=== PATIENT | female | born 1930 | race Caucasian/White ===

== ENCOUNTER 2017-06-01 09:30 | Inpatient (IN) | payer MEDICARE ==
[~2017-06-01] VITALS: Ht 157.5 cm; Wt 58.5 kg
[2017-06-01 09:31] VITALS: BP 159/78; PULSE 81; RESP 18; TEMP 98.5; O2SAT 98
[2017-06-01] MEDS ORDERED: ONDANSETRON HCL 4 MG/2 ML VIAL IVP ONE (10:00)
[2017-06-01] MEDS ORDERED: SODIUM CHLOR 0.9% 1000 ML INJ 1,000 ML IV SCH ×2 (10:00→12:00)
[2017-06-01] MEDS: SODIUM CHLORIDE 0.9% FLUSH 10 ML FLUSH IV FLUSH PRN (10:09)
[2017-06-01 10:33] LABS: AUTOMATED NEUTROPHIL # 15.5 TH/MM3 (1.8-7.7); BASOPHIL # 0.1 TH/MM3 (0-0.2); BASOPHIL % 0.3 % (0.0-2.0); HEMATOCRIT 39.3 % (35.0-46.0); HEMOGLOBIN 13.1 GM/DL (11.6-15.3); LYMPH % 4.8 % (9.0-44.0); LYMPHOCYTE # 0.8 TH/MM3 (1.0-4.8); MEAN CORPUSCULAR HGB CONC 33.4 % (32.0-36.0); MEAN PLATELET VOLUME 9.6 FL (7.0-11.0); MONO % 6.7 % (0.0-8.0); MONOCYTE # 1.2 TH/MM3 (0-0.9); NEUT % 88.2 % (16.0-70.0); PLATELET COUNT 751 TH/MM3 (150-450); RED BLOOD COUNT 4.51 MIL/MM3 (4.00-5.30); RED CELL DISTRIBUTION WIDTH 14.8 % (11.6-17.2); WHITE BLOOD COUNT 17.6 TH/MM3 (4.0-11.0)
--- NOTE | 2017-06-01 10:33 | RADRPT ---
EXAM DATE/TIME: 06/01/2017 10:20 [facility] COMPARISON: No previous studies available for comparison. INDICATIONS : Abdominal pain, vomiting ORAL CONTRAST: No oral contrast ingested. RADIATION DOSE: 6.64 CTDIvol (mGy) MEDICAL HISTORY : None SURGICAL HISTORY : Appendectomy. Hysterectomy. ENCOUNTER: Initial ACUITY: 4 - 6 days PAIN SCALE: 5/10 LOCATION: Bilateral upper quadrant TECHNIQUE: Volumetric scanning of the abdomen and pelvis was performed. Using automated exposure control and ad justment of the mA and/or kV according to patient size, radiation dose was kept as low as reasonably achievable to obtain optimal diagnostic quality images. DICOM format image data is available electro nically for review and comparison. FINDINGS: LOWER LUNGS: The visualized lower lungs are clear. LIVER: Homogeneous density without lesion. There is no dilation of the biliary tree. No calcified gallston es. SPLEEN: Normal size without lesion. PANCREAS: Within normal limits. KIDNEYS: Normal in size and shape. There is no mass, stone, or hydronephrosis. ADRENAL GLANDS: Within normal limits. VASCULAR: There is no aortic aneurysm. BOWEL/MESENTERY: The stomach and small bowel are prominently dilated down to a transition point in the low left parame sofy pelvis. The small bowel distal to this is decompressed. The colon is decompressed. There is mode rate distal colonic diverticulosis without definite findings of diverticulitis. ABDOMINAL WALL: Within normal limits. RETROPERITONEUM: There is no lymphadenopathy. BLADDER: No wall thickening or mass. REPRODUCTIVE: Uterus surgically absent. No evidence of pelvic mass or free fluid INGUINAL: There is no lymphadenopathy or hernia. MUSCULOSKELETAL: Within normal limits for patient age. CONCLUSION: Mid small bowel obstruction. Carlos Batista MD on June 01, 2017 at 10:26 Board Certified Radiologist. This report was verified electronically.
[2017-06-01] MEDS ORDERED: SODIUM CHLOR 0.9% 1000 ML INJ 1,000 ML IV ONE (10:45)
[2017-06-01 10:46] LABS: ALBUMIN 3.6 GM/DL (3.4-5.0); ALT (GPT) 23 U/L (10-53); AST (GOT) 24 U/L (15-37); BICARBONATE 32.4 MEQ/L (21.0-32.0); BLOOD UREA NITROGEN 39 MG/DL (7-18); CALCIUM 9.1 MG/DL (8.5-10.1); CHLORIDE 90 MEQ/L (98-107); CREATININE 1.49 MG/DL (0.50-1.00); GLOMERULAR FILTRATION RATE 33 ML/MIN (>89); GLUCOSE,RANDOM 175 MG/DL (74-106); SODIUM (NA) 132 MEQ/L (136-145)
[2017-06-01 10:48] LABS: ALKALINE PHOSPHATASE 83 U/L (45-117); TOTAL BILIRUBIN ADULT 0.5 MG/DL (0.2-1.0); TOTAL PROTEIN 7.4 GM/DL (6.4-8.2)
[2017-06-01] MEDS: LIDOCAINE 2% JELLY 5 ML TUBE ONE ×2 (10:48→11:02)
[2017-06-01] MEDS ORDERED: POTASSIUM CHLOR 10 MEQ PREMIX 100 ML IV ONE (11:00)
[2017-06-01] MEDS ORDERED: LIDOCAINE HCL 2% JELLY 5 ML SYRINGE TOPICAL ONE (11:00)
--- NOTE | 2017-06-01 11:09 | PD ---
HPI Chief Complaint: Abdominal Pain Time Seen by Provider: 10:01 Travel History International Travel<30 days: No Contact w/Intl Traveler<30days: No Traveled to known affect area: No History of Present Illness HPI 87-year-old female came to the emergency room with history of vomiting and abdominal pain that started 3 days ago. Patient has not had any bowel movement for over 24 hours. She has not passed any gas. The vomiting is pretty much continuous. She went to the urgent care today and was asked to come to the emergency room with suspicion of small bowel obstruction. No previous history of small bowel obstruction. Vital signs are relatively stable. Patient appears to be in moderate distress. Pain is all over the abdomen. [facility] Past Medical History Narrative Medical List of her past medical, surgical, social and family history reviewed from the nursing note. Medical History: Denies Significant Hx Hx Anticoagulant Therapy: Yes (asa) Diminished Hearing: No Tetanus Vaccination: Never Vaccinated Influenza Vaccination: No ?: Not Past Surgical History Appendectomy: Yes Hysterectomy: Yes Social History Alcohol Use: No Tobacco Use: No Substance Use: No Allergies-Medications (Allergen,Severity, Reaction): Coded Allergies: penicillin V (Verified Allergy, Unknown, 06/01/17) Comments List of her allergies reviewed from the nursing note. Reported Meds & Prescriptions Reported Meds & Active Scripts Active No Active Prescriptions or Reported Medications Narrative Medication List of her home medications reviewed from the nursing note Review of Systems Except as stated in HPI: all other systems reviewed are Neg Gastrointestinal: Positive: Nausea, Vomiting, Abdominal Pain Physical Exam Narrative GENERAL: Awake, alert, elderly, anxious, moderate distress SKIN: Focused skin assessment warm/dry. HEAD: Atraumatic. Normocephalic. EYES: Pupils equal and round. No scleral icterus. No injection or drainage. ENT: No nasal bleeding or discharge. Mucous membranes pink and moist. NECK: Trachea midline. No JVD. CARDIOVASCULAR: Regular rate and rhythm. No murmur appreciated. RESPIRATORY: No accessory muscle use. Clear to auscultation. Breath sounds equal bilaterally. GASTROINTESTINAL: Abdomen is tense and distended with tinkling bowel sounds. Hepatic and splenic margins not palpable. MUSCULOSKELETAL: No obvious deformities. No clubbing. No cyanosis. No edema. NEUROLOGICAL: Awake and alert. No obvious cranial nerve deficits. Motor grossly within normal limits. Normal speech. PSYCHIATRIC: Appropriate mood and affect; insight and judgment normal. Data Data Last Documented VS Orders Orders Electrocardiogram (06/01/17 ) Complete Blood Count With Diff (06/01/17 10:00) Comprehensive Metabolic Panel (06/01/17 10:00) Lipase (06/01/17 10:00) Ct Abd/Pel W/O Iv Contrast (06/01/17 10:00) Iv Access Insert/Monitor (06/01/17 10:00) Ecg Monitoring (06/01/17 10:00) Oximetry (06/01/17 10:00) Ondansetron Inj (Zofran Inj) (06/01/17 10:00) Sodium Chlor 0.9% 1000 Ml Inj (Ns 1000 M (06/01/17 10:00) Sodium Chloride 0.9% Flush (Ns Flush) (06/01/17 10:00) Sodium Chlor 0.9% 1000 Ml Inj (Ns 1000 M (06/01/17 10:45) Lidocaine 2% Jelly (Xylocaine 2% Jelly) (06/01/17 11:00) Lidocaine 2% Jelly (Xylocaine 2% Jelly) (06/01/17 10:48) Potassium Chlor 10 Meq Premix (Kcl 10 Me (06/01/17 11:00) Admit Order (Ed Use Only) (06/01/17 11:11) Labs Laboratory Tests Test 06/01/17 09:50 White Blood Count 17.6 TH/MM3 Red Blood Count 4.51 MIL/MM3 Hemoglobin 13.1 GM/DL Hematocrit 39.3 % Mean Corpuscular Volume 87.0 FL Mean Corpuscular Hemoglobin 29.0 PG Mean Corpuscular Hemoglobin Concent 33.4 % Red Cell Distribution Width 14.8 % Platelet Count 751 TH/MM3 Mean Platelet Volume 9.6 FL Neutrophils (%) (Auto) 88.2 % Lymphocytes (%) (Auto) 4.8 % Monocytes (%) (Auto) 6.7 % Eosinophils (%) (Auto) 0.0 % Basophils (%) (Auto) 0.3 % Neutrophils # (Auto) 15.5 TH/MM3 Lymphocytes # (Auto) 0.8 TH/MM3 Monocytes # (Auto) 1.2 TH/MM3 Eosinophils # (Auto) 0.0 TH/MM3 Basophils # (Auto) 0.1 TH/MM3 CBC Comment DIFF FINAL Differential Comment Blood Urea Nitrogen 39 MG/DL Creatinine 1.49 MG/DL Random Glucose 175 MG/DL Total Protein 7.4 GM/DL Albumin 3.6 GM/DL Calcium Level 9.1 MG/DL Alkaline Phosphatase 83 U/L Aspartate Amino Transf (AST/SGOT) 24 U/L Alanine Aminotransferase (ALT/SGPT) 23 U/L Total Bilirubin 0.5 MG/DL Sodium Level 132 MEQ/L Potassium Level 3.0 MEQ/L Chloride Level 90 MEQ/L Carbon Dioxide Level 32.4 MEQ/L Anion Gap 10 MEQ/L Estimat Glomerular Filtration Rate 33 ML/MIN Lipase 172 U/L MDM Medical Decision Making Medical Screen Exam Complete: Yes Emergency Medical Condition: Yes Medical Record Reviewed: Yes Interpretation(s) Twelve-lead EKG was reviewed by me. Normal sinus rhythm, left axis deviation, intraventricular conduction delay, nonspecific ST-T wave changes. Heart rate of 77 bpm. Differential Diagnosis Small bowel obstruction, acute gastroenteritis Narrative Course 11:08 AM blood test results are back and patient has significant leukocytosis. BUN/creatinine is elevated. I have given her 2 L of IV fluid bolus and Zofran. CT scan shows small bowel obstruction. I have ordered an NG tube at this point. Awaiting for the admitting team to call. Procedures EKG Prior to Arrival: No Diagnosis Primary Impression: Small bowel obstruction Admitting Information Admitting Physician Requests: Admit Scripts No Active Prescriptions or Reported Meds Jessica Centeno MD Jun 01, 2017 11:09
[2017-06-01 11:27] VITALS: BP 165/70; PULSE 82; RESP 15; RESP 16; O2SAT 99
--- NOTE | 2017-06-01 12:34 | RADRPT ---
EXAM DATE/TIME: 06/01/2017 12:03 [facility] COMPARISON: No previous studies available for comparison. INDICATIONS : Evaluate NG tube placement. MEDICAL HISTORY : None. SURGICAL HISTORY : None. ENCOUNTER: Initial ACUITY: 1 day PAIN SCORE: 0/10 LOCATION: Abdomen FINDINGS: Single frontal view of the mid chest and upper abdomen demonstrates the tip and side port of the seferino raffy tube projects within the stomach. The visualized lower lungs are clear. Moderate severe degenerat mery changes in the thoracic and lumbar spine with endplate sclerosis. No dilated loops of upper abdom inal bowel. CONCLUSION: The gastric tube tip and side port within the stomach. Trey Chapman MD on June 01, 2017 at 12:31 Board Certified Radiologist. This report was verified electronically.
[2017-06-01] MEDS: MORPHINE SULFATE 2 MG/ML INJ IV PUSH PRN (12:55)
[2017-06-01] MEDS: ONDANSETRON HCL 4 MG/2 ML VIAL IV PUSH PRN (12:56)
[2017-06-01] MEDS ORDERED: NS + KCL 20 MEQ INJ 1,000 ML IV SCH (13:45)
--- NOTE | 2017-06-01 13:49 | HHI.HP ---
[facility] Service [facility] Primary Care Physician Unknown Admission Diagnosis Small bowel obstruction Diagnoses: (1) Small bowel obstruction Diagnosis: Principal Chief Complaint: abdominal pain Travel History International Travel<30 Days: No Contact w/Intl Traveler <30 Da: No Traveled to Known Affected Are: No History of Present Illness patient is a 87 y/o female with no significant past medical history presented to ER with abdominal pain. she says that the pain started three days ago which gradually got worse. pain was generalized and colicky in nature.pain was associated with nausea and several non-bloody emesis. she hasn't had any bowel movements since Wednesday.she denies any fever or chills. Review of Systems Constitutional: DENIES: Fever, Weight loss, Chills, Night Sweats Eyes: DENIES: Blurred vision, Diplopia, Vision loss, Double Vision Ears, nose, mouth, throat: DENIES: Tinnitus, Vertigo, Throat pain, Epistaxis Respiratory: DENIES: Apneas, Cough, Snoring, Wheezing, Hemoptysis, Sputum production, Shortness of breath Cardiovascular: DENIES: Chest pain, Palpitations, Syncope, Dyspnea on Exertion , PND, Lower Extremity Edema, Orthopnea, Claudication Gastrointestinal: COMPLAINS OF: Abdominal pain, Constipation, Nausea, Vomiting , DENIES: Black stools, Bloody stools, Diarrhea, Difficulty Swallowing, Anorexia Genitourinary: DENIES: Urinary frequency, Urgency, Hematuria, Dysuria Musculoskeletal: DENIES: Joint pain, Muscle aches, Stiffness, Joint Swelling Integumentary: DENIES: Rash Neurologic: DENIES: Abnormal gait, Headache, Localized weakness, Paresthesias, Seizures, Speech Problems, Tremor, Poor Balance Psychiatric: DENIES: Anxiety, Confusion, Mood changes, Depression, Hallucinations, Agitation, Suicidal Ideation, Homicidal Ideation, Delusions Past Family Social History Past Medical History not significant. Past Surgical History appendectomy- hysterectomy. Reported Medications none Allergies: Coded Allergies: penicillin V (Verified Allergy, Unknown, 06/01/17) Active Ordered Medications Inpatient Medications Lidocaine HCl (Xylocaine 2% Jelly) 5 ml ONCE ONCE TOPICAL Last administered on 06/01/17 11:03; Start 06/01/17 at 11:00; Stop 06/01/17 at 11:01; Status DC Morphine Sulfate (Morphine Inj) 2 mg Q4H PRN IV PUSH PAIN Last administered on 06/01/17 12:55; Start 06/01/17 at 11:45 Ondansetron HCl (Zofran Inj) 4 mg Q8H PRN IV PUSH NAUSEA Last administered on 12:56; Start 06/01/17 at 11:45 Potassium Chloride 100 ml @ 100 mls/hr ONCE ONCE IV Last administered on 11:01; Start 06/01/17 at 11:00; Stop 06/01/17 at 11:59; Status DC Sodium Chloride 1,000 ml @ 75 mls/hr [id number] IV Last administered on 06/01/17 12:57; Start 06/01/17 at 12:00 Sodium Chloride (NS Flush) 2 ml UNSCH PRN IV FLUSH FLUSH AFTER USING IV ACCESS Last administered on 06/01/17at 10:09; Start 06/01/17 at 10:00 Family History breast cancer in daughter. Social History no smoking or drinking. Physical Exam Vital Signs Vital Signs Date Time Temp Pulse Resp B/P (MAP) Pulse Ox O2 Delivery O2 Flow Rate FiO2 06/01/17 11:27 82 16 165/70 (101) 99 Nasal Cannula 2.00 06/01/17 11:27 82 15 165/70 (101) 99 Nasal Cannula 2.00 06/01/17 09:50 16 06/01/17 09:31 98.5 81 18 159/78 (105) 98 Room Air Physical Exam GENERAL: This is a well-nourished, well-developed patient, in no apparent distress. SKIN: No rashes, ecchymoses or lesions. Cool and dry. HEAD: Atraumatic. Normocephalic. No temporal or scalp tenderness. EYES: Pupils equal round and reactive. Extraocular motions intact. No scleral icterus. No injection or drainage. ENT: Nose without bleeding, purulent drainage or septal hematoma. Throat without erythema, tonsillar hypertrophy or exudate. Uvula midline. Airway patent. NECK: Trachea midline. No JVD or lymphadenopathy. Supple, nontender, no meningeal signs. CARDIOVASCULAR: Regular rate and rhythm without murmurs, gallops, or rubs. RESPIRATORY: Clear to auscultation. Breath sounds equal bilaterally. No wheezes , rales, or rhonchi. GASTROINTESTINAL: Abdomen soft, non-tender, nondistended. No hepato-splenomegaly , or palpable masses. No guarding. MUSCULOSKELETAL: Extremities without clubbing, cyanosis, or edema. No joint tenderness, effusion, or edema noted. No calf tenderness. Negative Homans sign bilaterally. NEUROLOGICAL: Awake and alert. Cranial nerves II through XII intact. Motor and sensory grossly within normal limits. Five out of 5 muscle strength in all muscle groups. Normal speech. Laboratory Laboratory Tests Test 06/01/17 09:50 White Blood Count 17.6 Red Blood Count 4.51 Hemoglobin 13.1 Hematocrit 39.3 Mean Corpuscular Volume 87.0 Mean Corpuscular Hemoglobin 29.0 Mean Corpuscular Hemoglobin Concent 33.4 Red Cell Distribution Width 14.8 Platelet Count 751 Mean Platelet Volume 9.6 Neutrophils (%) (Auto) 88.2 Lymphocytes (%) (Auto) 4.8 Monocytes (%) (Auto) 6.7 Eosinophils (%) (Auto) 0.0 Basophils (%) (Auto) 0.3 Neutrophils # (Auto) 15.5 Lymphocytes # (Auto) 0.8 Monocytes # (Auto) 1.2 Eosinophils # (Auto) 0.0 Basophils # (Auto) 0.1 CBC Comment DIFF FINAL Differential Comment Blood Urea Nitrogen 39 Creatinine 1.49 Random Glucose 175 Total Protein 7.4 Albumin 3.6 Calcium Level 9.1 Alkaline Phosphatase 83 Aspartate Amino Transf (AST/SGOT) 24 Alanine Aminotransferase (ALT/SGPT) 23 Total Bilirubin 0.5 Sodium Level 132 Potassium Level 3.0 Chloride Level 90 Carbon Dioxide Level 32.4 Anion Gap 10 Estimat Glomerular Filtration Rate 33 Lipase 172 Result Diagram: 06/01/17 0950 06/01/17 0950 Imaging Last Impressions Abdomen/Pelvis CT 06/01/17 1000 Signed Impressions: Service Date/Time: Thursday, June 01, 2017 10:20 - CONCLUSION: Mid small bowel obstruction. Carlos Batista MD Abdomen X-Ray 06/01/17 0000 Signed Impressions: Service Date/Time: Thursday, June 01, 2017 12:03 - CONCLUSION: The gastric tube tip and side port within the stomach. MD Roberto Loo VTE Risk Assessment Caprini VTE Risk Assessment: Mod/High Risk (score >= 2) Caprini Risk Assessment Model Point Value = 1 Point Value = 2 Point Value = 3 Point Value = 5 Age 41-60 Minor surgery BMI > 25 kg/m2 Swollen legs Varicose veins or History of unexplained or recurrent spontaneous Oral contraceptives or hormone replacement Sepsis (< 1 month) Serious lung disease, including pneumonia (< 1 month) Abnormal pulmonary function Acute myocardial infarction Congestive heart failure (< 1 month) History of inflammatory bowel disease Medical patient at bed rest Age 61-74 Arthroscopic surgery Major open surgery (> 45 min) Laparoscopic surgery (> 45 min) Malignancy Confined to bed (> 72 hours) Immobilizing plaster cast Central venous access Age >= 75 History of VTE Family history of VTE Factor V Leiden Prothrombin [id number] Lupus anticoagulant Anticardiolipin antibodies Elevated serum homocysteine Heparin-induced thrombocytopenia Other congenital or acquired thrombophilia Stroke (< 1 month) Elective arthroplasty Hip, pelvis, or leg fracture Acute spinal cord injury (< 1 month) Prophylaxis Regimen Total Risk Factor Score Risk Level Prophylaxis Regimen 0-1 Low Early ambulation 2 Moderate Order ONE of the following: *Sequential Compression Device (SCD) *Heparin 5000 units SQ BID 3-4 Higher Order ONE of the following medications: *Heparin 5000 units SQ TID *Enoxaparin/Lovenox 40 mg SQ daily (WT < 150 kg, CrCl > 30 mL/min) *Enoxaparin/Lovenox 30 mg SQ daily (WT < 150 kg, CrCl > 10-29 mL/min) *Enoxaparin/Lovenox 30 mg SQ BID (WT < 150 kg, CrCl > 30 mL/min) AND/OR *Sequential Compression Device (SCD) 5 or more Highest Order ONE of the following medications: *Heparin 5000 units SQ TID (Preferred with Epidurals) *Enoxaparin/Lovenox 40 mg SQ daily (WT < 150 kg, CrCl > 30 mL/min) *Enoxaparin/Lovenox 30 mg SQ daily (WT < 150 kg, CrCl > 10-29 mL/min) *Enoxaparin/Lovenox 30 mg SQ BID (WT < 150 kg, CrCl > 30 mL/min) AND *Sequential Compression Device (SCD) Assessment and Plan Assessment and Plan A/P - small bowel obstruction keep NPO-NG tube in place- start on IV fluid and supportive care with pain management and antiemetics as needed. will repeat KUB tomorrow- surgery will be consulted. -renal insufficiency with unknown duration- continue IV fluid- will monitor. -leukocytosis/thrombocytosis- likely reactive- will monitor -hypokalemia; will replace and monitor. -DVT prophylaxis with SCD's -DNR status per my d/w the patient and her son. -consult PT Code Status DNR. Discussed Condition With ER physician and the patient and her son. Physician Certification 2 Midnight Certification Type: Admission for Inpatient Services Order for Inpatient Services The services are ordered in accordance with Medicare regulations or non- Medicare payer requirements, as applicable. In the case of services not specified as inpatient-only, they are appropriately provided as inpatient services in accordance with the 2-midnight benchmark. Estimated LOS (days): 2 days is the estimated time the patient will need to remain in the hospital, assuming treatment plan goals are met and no additional complications. Post-Hospital Plan: Not yet determined Suman Gooden MD Jun 01, 2017 13:48
--- NOTE | 2017-06-01 14:33 | EKG ---
Date Performed: 06/01/2017 Time Performed: 09:51:09 PTAGE: 87 years EKG: Sinus rhythm MODERATE INTRAVENTRICULAR CONDUCTION DELAY NONSPECIFIC T-WAVE ABNORMALITY BORDERLINE ECG INTERPRETAT ION BASED ON A DEFAULT AGE OF 40 YEARS NO PREVIOUS TRACING DOCTOR: Letha Wheatley Interpretating Date/Time 06/01/2017 14:30:02
--- NOTE | 2017-06-01 15:21 | PD.CONS ---
cc: Navarro Arellano MD [facility] Service CONSULTATION NOTE FOR SURGICAL ATTENDING, DR. NAVARRO ARELLANO General Surgery Consult Requested By Dr. Gooden Reason for Consult Small bowel obstruction Primary Care Physician Unknown History of Present Illness This is an 87-year-old female with no significant past medical history who comes to the Emergency Department with complaints of nausea, vomiting and abdominal pain that began on Wednesday. The patient reports no sick contacts. The patient reports that she has traveled from [facility] via car with her son. She is here on vacation visiting her son. A CT abdomen and pelvis obtained which is a mid small bowel obstruction. An NG tube was placed to low intermittent wall suction with resolution of nausea and vomiting and relief of some abdominal pain. The patient does not have any prior history of any type episode like this before. She does have a surgical history of an open appendectomy as a teenager and a total abdominal hysterectomy. The patient reports that she is never had an EGD or colonoscopy. A General Surgery consultation has been requested. Review of Systems Constitutional: COMPLAINS OF: Change in appetite, DENIES: Fatigue, Fever, Weight loss Endocrine: DENIES: Polydipsia, Polyuria, Polyphagia Eyes: DENIES: Eye inflammation, Eye pain Ears, nose, mouth, throat: DENIES: Hearing loss Respiratory: DENIES: Cough Cardiovascular: DENIES: Chest pain Gastrointestinal: COMPLAINS OF: Abdominal pain, Nausea, Vomiting Genitourinary: DENIES: Urinary frequency Musculoskeletal: DENIES: Joint pain Integumentary: DENIES: Abnormal pigmentation Hematologic/lymphatic: DENIES: Bruising Immunologic/allergic: DENIES: Eczema Neurologic: DENIES: Headache, Localized weakness Psychiatric: DENIES: Mood changes, Depression, Hallucinations Past Family Social History Past Medical History None Past Surgical History Open appendectomy Total abdominal hysterectomy Reported Medications Aspirin and multivitamin Allergies: Coded Allergies: penicillin V (Verified Allergy, Unknown, 06/01/17) Active Ordered Medications Current Medications Medications (Trade) Dose Ordered Sig/Mike Route Start Time Stop Time Status Last Admin (NS Flush) 2 ml UNSCH PRN IV FLUSH 06/01/17 10:00 06/01/17 10:09 (Zofran Inj) 4 mg Q8H PRN IV PUSH 06/01/17 11:45 06/01/17 12:56 (Morphine Inj) 2 mg Q4H PRN IV PUSH 06/01/17 11:45 06/01/17 12:55 Potassium Chloride/Sodium Chloride 1,000 ml @ 75 mls/hr [id number] IV 06/01/17 13:45 Family History Daughter of breast cancer 3 years ago No known family history of esophagus, stomach, colon or rectal cancer. Social History Denies tobacco use Denies EtOH use Denies illicit drug use Lives in [facility] and is here on vacation visiting her son. Physical Exam Vital Signs Vital Signs Date Time Temp Pulse Resp B/P (MAP) Pulse Ox O2 Delivery O2 Flow Rate FiO2 06/01/17 14:51 80 15 97 Nasal Cannula 2.00 06/01/17 11:27 82 16 165/70 (101) 99 Nasal Cannula 2.00 06/01/17 11:27 82 15 165/70 (101) 99 Nasal Cannula 2.00 2/6/18 09:50 16 06/01/17 09:31 98.5 81 18 159/78 (105) 98 Room Air Physical Exam GENERAL: 87-year-old female appears younger than stated age resting in bed in no acute distress. SKIN: Warm and dry. HEAD: Atraumatic. Normocephalic. EYES: Pupils equal and round. No scleral icterus. No injection or drainage. ENT: No nasal bleeding or discharge. Mucous membranes pink and moist. NECK: Trachea midline. CARDIOVASCULAR: Regular rate and rhythm. RESPIRATORY: No accessory muscle use. Clear to auscultation. Breath sounds equal bilaterally. GASTROINTESTINAL: Abdomen soft, mildly distended. Mildly tender in right lower quadrant and left lower quadrant. Hypoactive bowel sounds. Well-healed midline incision and well-healed right lower quadrant incision. MUSCULOSKELETAL: Extremities without clubbing, cyanosis, or edema. No obvious deformities. NEUROLOGICAL: Awake and alert. No obvious cranial nerve deficits. Motor grossly within normal limits. Five out of 5 muscle strength in the arms and legs. Normal speech. PSYCHIATRIC: Appropriate mood and affect; insight and judgment normal. Laboratory Laboratory Tests Test 06/01/17 09:50 White Blood Count 17.6 Red Blood Count 4.51 Hemoglobin 13.1 Hematocrit 39.3 Mean Corpuscular Volume 87.0 Mean Corpuscular Hemoglobin 29.0 Mean Corpuscular Hemoglobin Concent 33.4 Red Cell Distribution Width 14.8 Platelet Count 751 Mean Platelet Volume 9.6 Neutrophils (%) (Auto) 88.2 Lymphocytes (%) (Auto) 4.8 Monocytes (%) (Auto) 6.7 Eosinophils (%) (Auto) 0.0 Basophils (%) (Auto) 0.3 Neutrophils # (Auto) 15.5 Lymphocytes # (Auto) 0.8 Monocytes # (Auto) 1.2 Eosinophils # (Auto) 0.0 Basophils # (Auto) 0.1 CBC Comment DIFF FINAL Differential Comment Blood Urea Nitrogen 39 Creatinine 1.49 Random Glucose 175 Total Protein 7.4 Albumin 3.6 Calcium Level 9.1 Alkaline Phosphatase 83 Aspartate Amino Transf (AST/SGOT) 24 Alanine Aminotransferase (ALT/SGPT) 23 Total Bilirubin 0.5 Sodium Level 132 Potassium Level 3.0 Chloride Level 90 Carbon Dioxide Level 32.4 Anion Gap 10 Estimat Glomerular Filtration Rate 33 Lipase 172 Result Diagram: 06/01/17 0950 06/01/17 0950 Imaging Last 48 hours Impressions Abdomen/Pelvis CT 06/01/17 1000 Signed Impressions: Service Date/Time: Thursday, June 01, 2017 10:20 - CONCLUSION: Mid small bowel obstruction. Carlos Batista MD Abdomen X-Ray 06/01/17 0000 Signed Impressions: Service Date/Time: Thursday, June 01, 2017 12:03 - CONCLUSION: The gastric tube tip and side port within the stomach. Trey Chapman MD Assessment and Plan Problem List: (1) Small bowel obstruction ICD Codes: K56.609 - Unspecified intestinal obstruction, unspecified as to partial versus complete obstruction Status: Acute (2) Potassium serum decreased ICD Codes: E87.6 - Hypokalemia Status: Acute (3) Vomiting ICD Codes: R11.10 - Vomiting, unspecified Status: Acute Assessment and Plan 87 year old female with abdominal pain; nausea/vomiting; dehydration; CT abd/ pelvis images shows small bowel obstruction likely secondary to adhesions from prior abdominal surgery -Recommend NGT to LIWS -NPO; okay for a few ice chips -KUB in AM -Continue IVF -Replace K -May need small bowel follow through in the next 24-48 hours -Continue to monitor labs -Thank you for this consult; We will continue to monitor Discussed Condition With Dr. Adan Long Attending Statement NOTE FOR SURGICAL ATTENDING, DR. NAVARRO ARELLANO Patient seen in the room She says she feels better after being admitted to the hospital Getting potassium replacement Getting fluid replacement for her 3 days of vomiting. Will get a urinalysis I agree with above assessment and plan. The exam, history, and the medical decision-making described in the above note were completed with the assistance of the mid-level provider. I reviewed and agree with the findings presented. I attest that I had a [id number] encounter with the patient on the same day, and personally performed and documented my assessment and findings in the medical record. The following services were provided during this hospital visit: Chart data review, vital sign assessments/reviewing monitor data Review of consultations notes if present. Medication orders/review and/or management Ordering and/or reviewing lab tests Ordering and/or interpreting/reviewing x-rays and/or diagnostic studies Care of the patient and discussion of the patient with the care team Documentation time To help prompt me to consider important information that might be impacting today's encounter and assessment, information from prior notes written by myself or my colleagues may have been "brought forward/copy and pasted" into today's note. Problem Qualifiers (1) Vomiting: Sydnie Kumar Jun 01, 2017 15:21 Navarro Arellano MD Jun 01, 2017 19:42
[2017-06-01 16:37] VITALS: BP 167/70; PULSE 83; RESP 18; TEMP 99; O2SAT 92
[2017-06-01] MEDS: NS + KCL 20 MEQ INJ 1,000 ML IV SCH (17:38)
[2017-06-01 20:00] VITALS: BP 135/63; PULSE 82; RESP 18; TEMP 98.3; O2SAT 92
[2017-06-02] VITALS: BP 129/62; PULSE 80; RESP 16; TEMP 98.3; O2SAT 96
[2017-06-02] MEDS: NS + KCL 20 MEQ INJ 1,000 ML IV SCH ×2 (03:05→16:25)
[2017-06-02 04:00] VITALS: BP 155/74; PULSE 82; RESP 18; TEMP 100.5; O2SAT 92
[2017-06-02 06:01] LABS: AUTOMATED NEUTROPHIL # 7.9 TH/MM3 (1.8-7.7); BASOPHIL % 0.2 % (0.0-2.0); EOSINOPHIL # 0.1 TH/MM3 (0-0.4); EOSINOPHIL % 0.6 % (0.0-4.0); HEMATOCRIT 35.2 % (35.0-46.0); HEMOGLOBIN 11.7 GM/DL (11.6-15.3); LYMPH % 11.7 % (9.0-44.0); LYMPHOCYTE # 1.3 TH/MM3 (1.0-4.8); MEAN CELL VOLUME 87.3 FL (80.0-100.0); MEAN CORPUSCULAR HEMOGLOBIN 29.1 PG (27.0-34.0); MEAN CORPUSCULAR HGB CONC 33.3 % (32.0-36.0); MEAN PLATELET VOLUME 9.4 FL (7.0-11.0); MONO % 14.1 % (0.0-8.0); MONOCYTE # 1.5 TH/MM3 (0-0.9); NEUT % 73.4 % (16.0-70.0); PLATELET COUNT 607 TH/MM3 (150-450); RED BLOOD COUNT 4.04 MIL/MM3 (4.00-5.30); RED CELL DISTRIBUTION WIDTH 14.9 % (11.6-17.2); WHITE BLOOD COUNT 10.7 TH/MM3 (4.0-11.0)
--- NOTE | 2017-06-02 06:24 | RADRPT ---
EXAM DATE/TIME: 06/02/2017 05:25 [facility] COMPARISON: CT ABDOMEN & PELVIS W/O CONTRAST, June 01, 2017, 10:20. ABDOMEN SINGLE VIEW, June 01, 2017, 12:03. INDICATIONS : Distention. MEDICAL HISTORY : None. SURGICAL HISTORY : Appendectomy. Hysterectomy. ENCOUNTER: Subsequent ACUITY: 2 days PAIN SCORE: Non-responsive. LOCATION: abdomen, all quadrants. FINDINGS: Supine portable AP view of the chest demonstrates a mildly dilated segment of small bowel in the left lower quadrant measuring up to 4.2 cm. Otherwise, there is a relative paucity of bowel gas. Nasogast raffy tube overlies the stomach. No organomegaly or concerning calcifications are present. Lung bases a re clear. There is dextroscoliosis of the lumbar spine with multilevel degenerative change. There is sclerosis at the pubic symphysis. CONCLUSION: There is a single of dilated segment of small bowel in the left lower quadrant. However, there is les s dilatation compared to yesterday's CT examination. Consider continued followup to resolution. Carlos Bassett MD on June 02, 2017 at 6:20 Board Certified Radiologist. This report was verified electronically.
[2017-06-02 06:25] LABS: BICARBONATE 30.3 MEQ/L (21.0-32.0); CALCIUM 7.8 MG/DL (8.5-10.1); CREATININE 1.05 MG/DL (0.50-1.00)
[2017-06-02 08:04] VITALS: BP 124/77; PULSE 91; RESP 17; TEMP 98; O2SAT 96
[2017-06-02] MEDS ORDERED: POTASSIUM CHLOR 20 MEQ PREMIX 100 ML IV ONE (09:00)
[2017-06-02] MEDS ORDERED: BENZOCAINE 6 MG/MENTHOL 10 MG LOZENGE BUCCAL PRN (09:30)
[2017-06-02] MEDS ORDERED: DIATRIZOATE MEGLUM/DIATRIZOATE SOD 120 ML BTL (for RAD DIAG) NG ONE (10:30)
[2017-06-02] MEDS ORDERED: PHENYLEPH/NS 1000 MCG/10 ML SYR IV ONE (12:00)
[2017-06-02] MEDS ORDERED: ePHEDrine/NS 25 MG/5 ML SYRINGE IV ONE (12:00)
[2017-06-02] MEDS ORDERED: DEXAMETHASONE SOD PHOS 4 MG/ML VIAL IV ONE (12:00)
[2017-06-02] MEDS ORDERED: SUCCINYLCHOLINE CHLORIDE 200 MG/10 ML VIAL IV ONE (12:00)
[2017-06-02] MEDS ORDERED: ONDANSETRON HCL 4 MG/2 ML VIAL IV ONE (12:00)
[2017-06-02] MEDS ORDERED: LACTATED RINGER'S 1000 ML INJ 1,000 ML IV ONE (12:00)
[2017-06-02] MEDS ORDERED: ROCURONIUM INJ 50 MG/5 ML SYRINGE IV PUSH ONE (12:00)
[2017-06-02] MEDS ORDERED: LIDOCAINE HCL 1% PF 5 ML SYRINGE OTHER ONE (12:00)
[2017-06-02] MEDS ORDERED: PROPOFOL 200 MG/20 ML AMP IV ONE (12:00)
[2017-06-02] MEDS: ONDANSETRON HCL 4 MG/2 ML VIAL IV PUSH PRN (12:10)
--- NOTE | 2017-06-02 12:20 | HHI.PR ---
cc: Navarro Arellano MD Subjective Subjective Notes DAILY PROGRESS NOTE FOR SURGICAL ATTENDING, DR. NAVARRO ARELLANO Resting on the side of the bed Son at bedside Objective Vitals/I&O Vital Signs Date Time Temp Pulse Resp B/P (MAP) Pulse Ox O2 Delivery O2 Flow Rate FiO2 06/02/17 08:04 98.0 91 17 124/77 (93) 96 06/01/17 14:51 Nasal Cannula 2.00 Labs Laboratory Tests Test 06/02/17 05:05 White Blood Count 10.7 Red Blood Count 4.04 Hemoglobin 11.7 Hematocrit 35.2 Mean Corpuscular Volume 87.3 Mean Corpuscular Hemoglobin 29.1 Mean Corpuscular Hemoglobin Concent 33.3 Red Cell Distribution Width 14.9 Platelet Count 607 Mean Platelet Volume 9.4 Neutrophils (%) (Auto) 73.4 Lymphocytes (%) (Auto) 11.7 Monocytes (%) (Auto) 14.1 Eosinophils (%) (Auto) 0.6 Basophils (%) (Auto) 0.2 Neutrophils # (Auto) 7.9 Lymphocytes # (Auto) 1.3 Monocytes # (Auto) 1.5 Eosinophils # (Auto) 0.1 Basophils # (Auto) 0.0 CBC Comment DIFF FINAL Differential Comment Blood Urea Nitrogen 37 Creatinine 1.05 Random Glucose 92 Calcium Level 7.8 Sodium Level 137 Potassium Level 3.1 Chloride Level 100 Carbon Dioxide Level 30.3 Anion Gap 7 Estimat Glomerular Filtration Rate 49 Radiology Last Impressions Abdomen X-Ray 06/02/17 0600 Signed Impressions: Service Date/Time: Friday, June 02, 2017 05:25 - CONCLUSION: There is a single of dilated segment of small bowel in the left lower quadrant. However, there is less dilatation compared to yesterday's CT examination. Consider continued followup to resolution. Carlos Bassett MD Small Bowel X-Ray 06/02/17 0000 Signed Impressions: Service Date/Time: Friday, June 02, 2017 10:22 - CONCLUSION: Small bowel obstruction mid to distal small bowel left of midline. Terry Ladd MD FACR Abdomen/Pelvis CT 06/01/17 1000 Signed Impressions: Service Date/Time: Thursday, June 01, 2017 10:20 - CONCLUSION: Mid small bowel obstruction. Carlos Batista MD Cardiovascular: Regular Lungs: Clear Abdomen: Other (soft; non tender; NGT to LIWS) Extremities: No edema A/P Problem List: (1) Small bowel obstruction ICD Codes: K56.609 - Unspecified intestinal obstruction, unspecified as to partial versus complete obstruction Status: Acute (2) Potassium serum decreased ICD Codes: E87.6 - Hypokalemia Status: Acute (3) Vomiting ICD Codes: R11.10 - Vomiting, unspecified Status: Acute Assessment and Plan 87 year old female with SBO -NGT to LIWS -NPO; okay for a few ice chips -SBFT today -OOB -IVF -Replace K -Will continue to monitor; may need surgical intervention Attending Statement NOTE FOR SURGICAL ATTENDING, DR. NAVARRO ARELLANO Patient seen Reviewed imaging with Dr. Ladd Patient has small bowel obstruction that will not resolve with conservative management Plan diagnostic laparoscopy and hopefully laparoscopic lysis of adhesions possible open This was discussed with the family the patient they appeared to understand, waiting on time in the operating room I agree with above assessment and plan. The exam, history, and the medical decision-making described in the above note were completed with the assistance of the mid-level provider. I reviewed and agree with the findings presented. I attest that I had a [id number] encounter with the patient on the same day, and personally performed and documented my assessment and findings in the medical record. The following services were provided during this hospital visit: Chart data review, vital sign assessments/reviewing monitor data Review of consultations notes if present. Medication orders/review and/or management Ordering and/or reviewing lab tests Ordering and/or interpreting/reviewing x-rays and/or diagnostic studies Care of the patient and discussion of the patient with the care team Documentation time To help prompt me to consider important information that might be impacting today's encounter and assessment, information from prior notes written by myself or my colleagues may have been "brought forward/copy and pasted" into today's note. Problem Qualifiers (1) Vomiting: Sydnie Kumar Jun 02, 2017 12:20 Navarro Arellano MD Jun 02, 2017 13:31
--- NOTE | 2017-06-02 13:09 | RADRPT ---
EXAM DATE/TIME: 06/02/2017 10:22 [facility] COMPARISON: CT ABDOMEN & PELVIS W/O CONTRAST, June 01, 2017, 10:20. INDICATIONS : Obstruction. FLUORO TIME: 0 minutes IMAGE COUNT: 7 CONTRAST: MD Arriaga IMAGING TIME(S): 15 min, 30 min, 1 hr, 1.5 hrs, 2 hr MEDICAL HISTORY : None. SURGICAL HISTORY : Appendectomy. Hysterectomy. ENCOUNTER: Subsequent ACUITY: 4 - 6 days PAIN SCORE: 2/10 LOCATION: Bilateral abdomen FINDINGS: Hog Counter film reveals nasogastric tube across the GE junction persistent proximal small bowel dilatation . Gastric abdomen was instilled through the nasogastric tube. There is persistent small bowel dilatati on at 2 hours no contrast traversing into the distal ileum or colon. CONCLUSION: Small bowel obstruction mid to distal small bowel left of midline. Terry Ladd MD FACR on June 02, 2017 at 13:02 Board Certified Radiologist. This report was verified electronically.
--- NOTE | 2017-06-02 13:58 | HHI.PR ---
Subjective Remarks Follow-up SBO. Patient complains increased nausea and abdominal pain. Also noted distention. Not passing gas or flatus. 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 Objective Vitals Vital Signs Date Time Temp Pulse Resp B/P (MAP) Pulse Ox O2 Delivery O2 Flow Rate FiO2 06/02/17 08:04 98.0 91 17 124/77 (93) 96 06/02/17 04:00 100.5 82 18 155/74 (101) 92 06/02/17 00:00 98.3 80 16 129/62 (84) 96 06/01/17 20:00 98.3 82 18 135/63 (87) 92 06/01/17 16:37 99.0 83 18 167/70 (102) 92 06/01/17 14:51 80 15 97 Nasal Cannula 2.00 I/O 06/01/17 06/01/17 06/01/17 06/02/17 06/02/17 06/02/17 07:00 15:00 23:00 07:00 15:00 23:00 Intake Total 3100 ml Output Total 200 ml 950 ml Balance 2900 ml -950 ml Intake IV Total 3100 ml Output Gastric Drainage Total 200 ml 950 ml Result Diagram: 06/02/17 0505 06/02/17 0505 Imaging Last Impressions Abdomen X-Ray 06/02/17 0600 Signed Impressions: Service Date/Time: Friday, June 02, 2017 05:25 - CONCLUSION: There is a single of dilated segment of small bowel in the left lower quadrant. However, there is less dilatation compared to yesterday's CT examination. Consider continued followup to resolution. Carlos Bassett MD Abdomen/Pelvis CT 06/01/17 1000 Signed Impressions: Service Date/Time: Thursday, June 01, 2017 10:20 - CONCLUSION: Mid small bowel obstruction. Carlos Batista MD Objective Remarks GENERAL: This is a well-nourished, well-developed patient, in distress due to pain and nausea. SKIN: No rashes, ecchymoses or lesions. Cool and dry. CARDIOVASCULAR: Regular rate and rhythm without murmurs, gallops, or rubs. RESPIRATORY: Clear to auscultation. Breath sounds equal bilaterally. No wheezes , rales, or rhonchi. GASTROINTESTINAL: Abdomen, slightly distended with diffuse tenderness and hypoactive bowel sounds. MUSCULOSKELETAL: Extremities without clubbing, cyanosis, or edema. No joint tenderness, effusion, or edema noted. No calf tenderness. Negative Homans sign bilaterally. NEUROLOGICAL: Awake and alert. Cranial nerves II through XII intact. Motor and sensory grossly within normal limits. Five out of 5 muscle strength in all muscle groups. Normal speech. A/P Problem List: (1) Small bowel obstruction ICD Code: K56.609 - Unspecified intestinal obstruction, unspecified as to partial versus complete obstruction Status: Acute Assessment and Plan Persistent small bowel obstruction. Discussed with neurosurgery who will take patient to the operating room today. Keep n.p.o., IV hydration, pain management with IV morphine and GI prophylaxis with Protonix Acute kidney injury ration- continue IV fluid- will monitor. Follow-up urinalysis Leukocytosis/thrombocytosis- likely reactive- will monitor. Improving Hypokalemia. Will give 40 mEq IV potassium; check magnesium and replace accordingly. DVT prophylaxis with SCD's. Pharmacological prophylaxis postoperatively Isacc Johnston MD Jun 02, 2017 13:57
[2017-06-02] MEDS: POTASSIUM CHLOR 20 MEQ PREMIX 100 ML IV SCH ×2 (15:45→17:45)
[2017-06-02] MEDS: MORPHINE SULFATE 2 MG/ML INJ IV PUSH PRN (16:05)
[2017-06-02] MEDS: PANTOPRAZOLE SODIUM 40 MG VIAL IV PUSH SCH (16:05)
[2017-06-02 16:11] LABS: INTERNATIONAL NORMALIZED RATIO 1.2 RATIO; PROTHROMBIN TIME - PATIENT 11.9 SEC (9.8-11.6)
[2017-06-02 16:25] VITALS: BP 136/80; PULSE 86; RESP 18; TEMP 97.2; O2SAT 96
[2017-06-02] MEDS ORDERED: BUPIVACAINE/EPINEPHRINE 0.25% 50 ML VIAL ONE (20:16)
[2017-06-02] MEDS ORDERED: ceFAZolin INJ 1,000 MG VIAL ONE (20:58)
[2017-06-02 21:00] VITALS: BP 168/86; PULSE 86; RESP 18; TEMP 97.6
[2017-06-02] MEDS ORDERED: VANCOMYCIN 500 MG VIAL ONE (21:22)
[2017-06-02] MEDS ORDERED: SUGAMMADEX SODIUM 200 MG/2 ML VIAL IV PUSH ONE (21:27)
[2017-06-02] MEDS ORDERED: ACETAMINOPHEN 1000 MG/100 ML 100 ML IV ONE (21:27)
[2017-06-02] MEDS ORDERED: ALBUMIN 5% INJ 250 ML IV ONE (21:27)
[2017-06-02] MEDS ORDERED: Post-op Orders (for Pharmacy) XX ONE (23:00)
[2017-06-02] MEDS ORDERED: NALOXONE HCL 0.4 MG/ML AMP IV PUSH PRN (23:00)
--- NOTE | 2017-06-02 23:02 | HHI.PR ---
cc: Navarro Arellano MD Immediate Post Op Note Procedure Date: Jun 02, 2017 Pre Op Diagnosis: (1) Small bowel obstruction (2) Potassium serum decreased (3) Vomiting Post Op Diagnosis: (1) Intra-abdominal adhesions (2) Small bowel obstruction (3) Potassium serum decreased (4) Vomiting Surgeon: Navarro Arellano Rack Puncher(s): Refer to our records Procedure: Diagnostic laparoscopy Expiratory laparotomy lysis of adhesions Resection of mid jejunum 12 cm Findings: Massive adhesions Narrative stenotic mid jejunum stuck in the pelvis required resection Specimen(s) removed: Portion of jejunum Anesthesia: General Drains: None IVF Patient to: PACU Patient Condition: Good Implant/Devices: SEE IMPLANT LOG (if applicable) Date/Time of Procedure: SEE SURGICAL CARE RECORD Navarro Arellano MD Jun 02, 2017 23:02
[2017-06-02] MEDS ORDERED: SODIUM CHLOR 0.9% 1000 ML INJ 1,000 ML ONE (23:18)
[2017-06-02] MEDS ORDERED: NS + KCL 20 MEQ INJ 1,000 ML ONE (23:18)
[2017-06-02] MEDS ORDERED: DO NOT ADM ANY ANTICOAGULANT DRUGS PRN (23:45)
[2017-06-02] MEDS: HYDROmorphone HCL PCA 6 MG/30 ML IV SCH (23:55)
[2017-06-03] VITALS (11 sets, daily range): BP systolic 138–160; BP diastolic 63–75; PULSE 89–100; RESP 14–22; TEMP 98.5–99.7; O2SAT 95–99
[2017-06-03] MEDS: ONDANSETRON HCL 4 MG/2 ML VIAL IV PUSH PRN (00:02)
[2017-06-03] MEDS: MORPHINE SULFATE 2 MG/ML INJ IV PUSH PRN (00:03)
[2017-06-03] MEDS: NS + KCL 20 MEQ INJ 1,000 ML IV SCH ×3 (05:45→23:49)
[2017-06-03] MEDS ORDERED: PCA - TOTAL MG DILAUDID DELIVERED PER SHIFT OTHER SCH (06:00)
[2017-06-03 07:00] LABS: BICARBONATE 26.2 MEQ/L (21.0-32.0); CALCIUM 7.9 MG/DL (8.5-10.1); CREATININE 0.96 MG/DL (0.50-1.00)
[2017-06-03 07:38] LABS: AUTOMATED NEUTROPHIL # 9.8 TH/MM3 (1.8-7.7); BASOPHIL % 0.2 % (0.0-2.0); EOSINOPHIL % 0.2 % (0.0-4.0); HEMATOCRIT 35.5 % (35.0-46.0); HEMOGLOBIN 11.4 GM/DL (11.6-15.3); LYMPH % 5.9 % (9.0-44.0); LYMPHOCYTE # 0.7 TH/MM3 (1.0-4.8); MEAN CELL VOLUME 89.7 FL (80.0-100.0); MEAN CORPUSCULAR HEMOGLOBIN 28.9 PG (27.0-34.0); MEAN CORPUSCULAR HGB CONC 32.2 % (32.0-36.0); MEAN PLATELET VOLUME 9.4 FL (7.0-11.0); MONO % 7.9 % (0.0-8.0); MONOCYTE # 0.9 TH/MM3 (0-0.9); NEUT % 85.8 % (16.0-70.0); PLATELET COUNT 510 TH/MM3 (150-450); RED BLOOD COUNT 3.96 MIL/MM3 (4.00-5.30); RED CELL DISTRIBUTION WIDTH 15.2 % (11.6-17.2); WHITE BLOOD COUNT 11.4 TH/MM3 (4.0-11.0)
[2017-06-03] MEDS: PANTOPRAZOLE SODIUM 40 MG VIAL IV PUSH SCH (08:34)
[2017-06-03] MEDS: HYDROmorphone HCL PCA 6 MG/30 ML IV SCH (09:36)
--- NOTE | 2017-06-03 13:44 | MP ---
cc: JOSE ARELLANO M.D. DATE OF SURGERY 06/02/2017 PREOPERATIVE DIAGNOSIS Small bowel obstruction. POSTOPERATIVE DIAGNOSES 1. Small bowel obstruction. 2. 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 PROCEDURE 1. Diagnostic laparoscopy, lysis of adhesions converted to open with lysis of massive adhesions greater than 1-1/2 hours. 2. Small bowel resection of stenotic mid-jejunum. ANESTHESIA General. SURGEON Dr. Arellano INDICATIONS This is a pleasant 87-year-old female who came in the hospital. She had previous appendectomy and hysterectomy many years ago. She developed small bowel obstruction confirmed with physical exam and small bowel follow-through. Plans were made for above. PROCEDURE The patient was taken to the operating room, placed supine, administered general anesthesia. Her abdomen was prepped with Betadine. We make an incision above the umbilicus where we gain entrance to the abdomen. A 10-mm trocar is introduced. Two other working ports are placed in the midline. She has some minor adhesions to the anterior abdominal wall, nothing of significant. We could see massively dilated small bowel proximally and there is a matted area of bowel in the pelvis. We lyse some of these adhesions but it becomes apparent that these are not able to be taken down with the laparoscopic means. For this reason the trocars in the midline are all connected and the abdomen is entered. The small bowel is very adherent down to the pelvis where she had her hysterectomy. The sigmoid is somewhat floppy, has a fair amount of stool in it; it is somewhat tethering this area as well. We take these adhesions down. We are able to essentially free up the entirety of the small bowel from the pelvis and able to get this up into the midline. The portion of the bowel that had been chronically scarred down. There is stenotic and once I lyse all the adhesions I still could not push anything through this portion of the bowel. There is a fair amount of gritty material within the bowel that appears to be clogged, preventing further movement of liquids. For this reason a segment of about 15-20 cm is resected using the GI stapling device and a [id number] functional end-to-end anastomosis made with the remaining segment. The mesentery is closed with a Vicryl suture. The remaining enterotomy was closed with a TX 60. Staple lines oversewn. We then run the bowel again and check the NG tube. The liver is smooth. The gallbladder has no stones. No other gross abnormality is seen other than she is status post appendectomy and her sigmoid colon appears fairly full of stool. We then irrigate, place some Seprafilm down in the pelvis where the scar tissue was. We then place some on the omentum after the omentum was draped over the small bowel. We then close the midline incision using a #1 PDS looped and the skin is reapproximated the skin stapling device. The patient is returned to the recovery room and because of her age we will be watching her in the Intensive Care Unit tonight. Jose Arellano MD JDB/SSB /11:03 PM /1:34 PM
[2017-06-03] MEDS: PCA - TOTAL MG MORPHINE DELIVERED PER SHIFT SCH ×2 (14:00→22:00)
--- NOTE | 2017-06-03 14:53 | HHI.PR ---
cc: Navarro Arellano MD Subjective Subjective Notes DAILY PROGRESS NOTE FOR SURGICAL ATTENDING, DR. NAVARRO ARELLANO Saw at patient about 1000--- patient resting in bed; no complaints; reports pain pump helping her when she needs it Saw again about 1:30 per YOSSI Patino request--- patient now with pain; agonizing ; moaning Objective Vitals/I&O Vital Signs Date Time Temp Pulse Resp B/P (MAP) Pulse Ox O2 Delivery O2 Flow Rate FiO2 06/03/17 09:36 25 06/03/17 09:19 95 Nasal Cannula 3.00 06/03/17 08:00 98.6 89 138/63 (88) Labs Laboratory Tests Test 06/02/17 15:22 06/03/17 02:00 06/03/17 05:34 06/03/17 05:36 Prothrombin Time 11.9 Prothromb Time International Ratio 1.2 Nasal Screen MRSA (PCR) MRSA DETECTED White Blood Count 11.4 Red Blood Count 3.96 Hemoglobin 11.4 Hematocrit 35.5 Mean Corpuscular Volume 89.7 Mean Corpuscular Hemoglobin 28.9 Mean Corpuscular Hemoglobin Concent 32.2 Red Cell Distribution Width 15.2 Platelet Count 510 Mean Platelet Volume 9.4 Neutrophils (%) (Auto) 85.8 Lymphocytes (%) (Auto) 5.9 Monocytes (%) (Auto) 7.9 Eosinophils (%) (Auto) 0.2 Basophils (%) (Auto) 0.2 Neutrophils # (Auto) 9.8 Lymphocytes # (Auto) 0.7 Monocytes # (Auto) 0.9 Eosinophils # (Auto) 0.0 Basophils # (Auto) 0.0 CBC Comment DIFF FINAL Differential Comment Blood Urea Nitrogen 38 Creatinine 0.96 Random Glucose 92 Calcium Level 7.9 Sodium Level 141 Potassium Level 3.6 Chloride Level 106 Carbon Dioxide Level 26.2 Anion Gap 9 Estimat Glomerular Filtration Rate 55 Test 06/03/17 12:20 Magnesium Level 2.3 Radiology Last Impressions Abdomen X-Ray 06/02/17 0600 Signed Impressions: Service Date/Time: Friday, June 02, 2017 05:25 - CONCLUSION: There is a single of dilated segment of small bowel in the left lower quadrant. However, there is less dilatation compared to yesterday's CT examination. Consider continued followup to resolution. Carlos Bassett MD Small Bowel X-Ray 06/02/17 0000 Signed Impressions: Service Date/Time: Friday, June 02, 2017 10:22 - CONCLUSION: Small bowel obstruction mid to distal small bowel left of midline. Terry Ladd MD FACR Abdomen/Pelvis CT 06/01/17 1000 Signed Impressions: Service Date/Time: Thursday, June 01, 2017 10:20 - CONCLUSION: Mid small bowel obstruction. Carlos Batista MD Cardiovascular: Regular Lungs: Clear Abdomen: Other (incision with dressing in place; abdomen soft; tender to palpation ) Extremities: No edema A/P Problem List: (1) Status post exploratory laparotomy ICD Codes: Z98.890 - Other specified postprocedural states Status: Acute (2) S/P small bowel resection ICD Codes: Z90.49 - Acquired absence of other specified parts of digestive tract Status: Acute (3) Small bowel obstruction ICD Codes: K56.609 - Unspecified intestinal obstruction, unspecified as to partial versus complete obstruction Status: Acute (4) Potassium serum decreased ICD Codes: E87.6 - Hypokalemia Status: Acute (5) 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 NAVARRO ARELLANO Patient seen at 7 PM Pain controlled with [employer] Appears awake and alert comfortable Discussed surgical intervention and surgical findings I agree with above assessment and plan. The exam, history, and the medical decision-making described in the above note were completed with the assistance of the mid-level provider. I reviewed and agree with the findings presented. I attest that I had a [id number] encounter with the patient on the same day, and personally performed and documented my assessment and findings in the medical record. The following services were provided during this hospital visit: Chart data review, vital sign assessments/reviewing monitor data Review of consultations notes if present. Medication orders/review and/or management Ordering and/or reviewing lab tests Ordering and/or interpreting/reviewing x-rays and/or diagnostic studies Care of the patient and discussion of the patient with the care team Documentation time To help prompt me to consider important information that might be impacting today's encounter and assessment, information from prior notes written by myself or my colleagues may have been "brought forward/copy and pasted" into today's note. Sydnie Kumar Jun 03, 2017 14:53 Navarro Arellano MD Jun 03, 2017 19:38
--- NOTE | 2017-06-03 15:21 | HHI.PR ---
Subjective Remarks Follow-up SBO. 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 Not passing flatus. Discussed with nursing Objective Vitals Vital Signs Date Time Temp Pulse Resp B/P (MAP) Pulse Ox O2 Delivery O2 Flow Rate FiO2 06/03/17 09:36 25 06/03/17 09:19 95 Nasal Cannula 3.00 06/03/17 08:00 98.6 89 14 138/63 (88) 95 06/03/17 07:00 96 06/03/17 06:00 18 06/03/17 04:00 98.5 100 22 148/67 (94) 99 06/03/17 01:06 95 Nasal Cannula 3.00 06/02/17 23:55 20 06/02/17 23:30 85 24 165/76 (105) 94 Nasal Cannula 4 06/02/17 23:15 85 22 166/73 (104) 94 Nasal Cannula 4 06/02/17 23:08 83 22 163/72 (102) 94 Nasal Cannula 4 06/02/17 23:07 98.5 83 22 182/77 (112) 93 Nasal Cannula 4 06/02/17 21:00 97.6 86 18 168/86 (113) 06/02/17 16:25 97.2 86 18 136/80 (98) 96 I/O 06/02/17 06/02/17 06/02/17 06/03/17 06/03/17 06/03/17 06:59 14:59 22:59 06:59 14:59 22:59 Intake Total 2100 ml 500 ml Output Total 950 ml 250 ml 250 ml Balance -950 ml 1850 ml 250 ml Intake IV Total 100 ml 500 ml Other 2000 ml Output Urine Total 200 ml 250 ml Gastric Drainage Total 950 ml Estimated Blood Loss 50 ml # Voids 3 # Bowel Movements 0 Result Diagram: 06/03/17 0534 06/03/17 0536 Imaging Last Impressions Abdomen X-Ray 06/02/17 0600 Signed Impressions: Service Date/Time: Friday, June 02, 2017 05:25 - CONCLUSION: There is a single of dilated segment of small bowel in the left lower quadrant. However, there is less dilatation compared to yesterday's CT examination. Consider continued followup to resolution. Carlos Bassett MD Small Bowel X-Ray 06/02/17 0000 Signed Impressions: Service Date/Time: Friday, June 02, 2017 10:22 - CONCLUSION: Small bowel obstruction mid to distal small bowel left of midline. Terry Ladd MD FACR Abdomen/Pelvis CT 06/01/17 1000 Signed Impressions: Service Date/Time: Thursday, June 01, 2017 10:20 - CONCLUSION: Mid small bowel obstruction. Carlos Batista MD Objective Remarks GENERAL: This is a well-nourished, well-developed patient SKIN: No rashes, ecchymoses or lesions. Cool and dry. CARDIOVASCULAR: Regular rate and rhythm without murmurs, gallops, or rubs. RESPIRATORY: Clear to auscultation. Breath sounds equal bilaterally. No wheezes , rales, or rhonchi. GASTROINTESTINAL: Abdomen, tender over the operative site. MUSCULOSKELETAL: Extremities without clubbing, cyanosis, or edema. No joint tenderness, effusion, or edema noted. No calf tenderness. Negative Homans sign bilaterally. NEUROLOGICAL: Awake and alert. Cranial nerves II through XII intact. Motor and sensory grossly within normal limits. Five out of 5 muscle strength in all muscle groups. Normal speech. Procedures 1. Diagnostic laparoscopy, lysis of adhesions converted to open with lysis of massive adhesions greater than 1-1/2 hours. 2. Small bowel resection of stenotic mid-jejunum. A/P Problem List: (1) Small bowel obstruction ICD Code: K56.609 - Unspecified intestinal obstruction, unspecified as to partial versus complete obstruction Status: Acute Assessment and Plan Small bowel obstruction s/p lysis of adhesions converted to open and Small bowel resection of stenotic mid-jejunum. Stable continue postoperative care. 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 Consult dietitian for TPN or TPN Acute kidney injury ration- continue IV fluid- will monitor. Follow-up urinalysis Leukocytosis/thrombocytosis- likely reactive- will monitor. Improving Hypokalemia. Improved DVT prophylaxis with SCD's. Pharmacological prophylaxis postoperatively if okay with general surgery Discharge Planning Transfer to medical floor if okay with general surgery Isacc Johnston MD Jun 03, 2017 15:21
[2017-06-03] MEDS ORDERED: MORPHINE SULFATE 2 MG/ML INJ IV PUSH ONE (15:45)
[2017-06-03] MEDS ORDERED: NALOXONE HCL 0.4 MG/ML AMP IV PUSH PRN (15:45)
[2017-06-03] MEDS: MORPHINE SULFATE 30 MG/30 ML PCA IV SCH (17:04)
[2017-06-04] VITALS (12 sets, daily range): BP systolic 138–192; BP diastolic 2–90; PULSE 88–106; RESP 14–24; TEMP 97.8–99.7; O2SAT 92–96
[2017-06-04 04:08] LABS: BASOPHIL % 0.1 % (0.0-2.0); EOSINOPHIL # 0.1 TH/MM3 (0-0.4); HEMATOCRIT 34.5 % (35.0-46.0); LYMPH % 8.8 % (9.0-44.0); LYMPHOCYTE # 1.1 TH/MM3 (1.0-4.8); MEAN CELL VOLUME 89.5 FL (80.0-100.0); MEAN CORPUSCULAR HEMOGLOBIN 28.5 PG (27.0-34.0); MEAN CORPUSCULAR HGB CONC 31.8 % (32.0-36.0); MEAN PLATELET VOLUME 9.2 FL (7.0-11.0); MONO % 10.4 % (0.0-8.0); MONOCYTE # 1.3 TH/MM3 (0-0.9); NEUT % 79.7 % (16.0-70.0); PLATELET COUNT 430 TH/MM3 (150-450); RED BLOOD COUNT 3.85 MIL/MM3 (4.00-5.30); RED CELL DISTRIBUTION WIDTH 15.4 % (11.6-17.2); WHITE BLOOD COUNT 12.5 TH/MM3 (4.0-11.0)
[2017-06-04 04:35] LABS: BICARBONATE 22.6 MEQ/L (21.0-32.0); CALCIUM 7.9 MG/DL (8.5-10.1); CREATININE 0.89 MG/DL (0.50-1.00); MAGNESIUM 2.4 MG/DL (1.5-2.5)
[2017-06-04] MEDS: PCA - TOTAL MG MORPHINE DELIVERED PER SHIFT SCH ×3 (06:00→20:41)
[2017-06-04] MEDS: PANTOPRAZOLE SODIUM 40 MG VIAL IV PUSH SCH (08:21)
[2017-06-04] MEDS: SODIUM CHLORIDE 0.9% FLUSH 10 ML FLUSH IV FLUSH PRN (08:25)
--- NOTE | 2017-06-04 08:54 | HHI.PR ---
cc: Jose Arellano MD Subjective Subjective Notes DAILY PROGRESS NOTE FOR SURGICAL ATTENDING, DR. JOSE ARELLANO do a much better sitting up in chair Pain control Objective Vitals/I&O Vital Signs Date Time Temp Pulse Resp B/P (MAP) Pulse Ox O2 Delivery O2 Flow Rate FiO2 06/04/17 06:00 96 06/04/17 06:00 16 06/04/17 04:00 99.3 151/72 (98) 95 06/03/17 21:58 Nasal Cannula 3.00 Labs Laboratory Tests Test 06/03/17 12:20 06/04/17 03:08 Magnesium Level 2.3 2.4 White Blood Count 12.5 Red Blood Count 3.85 Hemoglobin 11.0 Hematocrit 34.5 Mean Corpuscular Volume 89.5 Mean Corpuscular Hemoglobin 28.5 Mean Corpuscular Hemoglobin Concent 31.8 Red Cell Distribution Width 15.4 Platelet Count 430 Mean Platelet Volume 9.2 Neutrophils (%) (Auto) 79.7 Lymphocytes (%) (Auto) 8.8 Monocytes (%) (Auto) 10.4 Eosinophils (%) (Auto) 1.0 Basophils (%) (Auto) 0.1 Neutrophils # (Auto) 10.0 Lymphocytes # (Auto) 1.1 Monocytes # (Auto) 1.3 Eosinophils # (Auto) 0.1 Basophils # (Auto) 0.0 CBC Comment DIFF FINAL Differential Comment Blood Urea Nitrogen 37 Creatinine 0.89 Random Glucose 74 Calcium Level 7.9 Sodium Level 148 Potassium Level 4.2 Chloride Level 111 Carbon Dioxide Level 22.6 Anion Gap 14 Estimat Glomerular Filtration Rate 60 Radiology Last Impressions Abdomen X-Ray 06/02/17 0600 Signed Impressions: Service Date/Time: Friday, June 02, 2017 05:25 - CONCLUSION: There is a single of dilated segment of small bowel in the left lower quadrant. However, there is less dilatation compared to yesterday's CT examination. Consider continued followup to resolution. Carlos Bassett MD Small Bowel X-Ray 06/02/17 0000 Signed Impressions: Service Date/Time: Friday, June 02, 2017 10:22 - CONCLUSION: Small bowel obstruction mid to distal small bowel left of midline. Terry Ladd MD FACR Abdomen/Pelvis CT 06/01/17 1000 Signed Impressions: Service Date/Time: Thursday, June 01, 2017 10:20 - CONCLUSION: Mid small bowel obstruction. Carlos Batista MD Cardiovascular: Regular Lungs: Clear Abdomen: Post-op tenderness Extremities: SCD's on A/P Problem List: (1) Status post exploratory laparotomy ICD Codes: Z98.890 - Other specified postprocedural states Status: Acute (2) S/P small bowel resection ICD Codes: Z90.49 - Acquired absence of other specified parts of digestive tract Status: Acute (3) Small bowel obstruction ICD Codes: K56.609 - Unspecified intestinal obstruction, unspecified as to partial versus complete obstruction Status: Acute (4) Potassium serum decreased ICD Codes: E87.6 - Hypokalemia Status: Acute (5) Intra-abdominal adhesions ICD Codes: K66.0 - Peritoneal adhesions (postprocedural) (postinfection) Status: Chronic Assessment and Plan 87-year-old female status post expiratory laparotomy lysis of adhesions small bowel resection Plan DC NG tube DC Casey Ambulate Possible transfer to floor if doing okay Attending Statement NOTE FOR SURGICAL ATTENDING, DR. JOSE ARELLANO I attest that I had a [id number] encounter with the patient on the same day, and personally performed and documented my assessment and findings in the medical record. The following services were provided during this hospital visit: Chart data review, vital sign assessments/reviewing monitor data Review of consultations notes if present. Medication orders/review and/or management Ordering and/or reviewing lab tests Ordering and/or interpreting/reviewing x-rays and/or diagnostic studies Care of the patient and discussion of the patient with the care team Documentation time To help prompt me to consider important information that might be impacting today's encounter and assessment, information from prior notes written by myself or my colleagues may have been "brought forward/copy and pasted" into today's note. Jose Arellano MD Jun 04, 2017 08:54
[2017-06-04] MEDS: BISACODYL 10 MG SUPP RECTAL SCH (09:56)
[2017-06-04] MEDS: 1/2 NS + KCL 20 MEQ INJ 1,000 ML IV SCH ×2 (09:56→20:48)
--- NOTE | 2017-06-04 15:15 | HHI.PR ---
Subjective Remarks Follow-up SBO status post surgery. She is doing okay tolerated liquid diet. Has been out of bed still no gas or stool. She is voiding. Discussed with RN Objective Vitals Vital Signs Date Time Temp Pulse Resp B/P (MAP) Pulse Ox O2 Delivery O2 Flow Rate FiO2 06/04/17 15:00 90 06/04/17 14:00 20 06/04/17 13:00 96 Nasal Cannula 2.00 06/04/17 12:00 98.3 94 24 142/65 (90) 94 06/04/17 08:00 98.2 106 24 147/90 (109) 92 06/04/17 07:00 92 06/04/17 06:00 96 06/04/17 06:00 16 06/04/17 04:00 99.3 96 17 151/72 (98) 95 06/04/17 04:00 96 06/04/17 02:00 96 06/04/17 00:00 96 06/04/17 00:00 99.7 96 14 157/79 (105) 95 06/03/17 22:00 96 06/03/17 22:00 13 06/03/17 21:58 95 Nasal Cannula 3.00 06/03/17 20:00 92 06/03/17 20:00 99.7 92 14 158/70 (99) 95 06/03/17 17:09 20 06/03/17 17:04 26 06/03/17 16:00 98.8 90 20 160/71 (100) 95 I/O 06/03/17 06/03/17 06/03/17 06/04/17 06/04/17 06/04/17 07:00 15:00 23:00 07:00 15:00 23:00 Intake Total 500 ml 757 ml 1210 ml 892 ml Output Total 250 ml 350 ml 610 ml Balance 250 ml 757 ml 860 ml 282 ml Intake Oral 180 ml 240 ml IV Total 500 ml 757 ml 1000 ml 652 ml Tube Irrigant 30 ml Output Urine Total 250 ml 350 ml 600 ml Gastric Drainage Total 0 ml 10 ml # Bowel Movements 0 Result Diagram: 06/04/17 0308 06/04/17 0308 Objective Remarks GENERAL: This is a well-nourished, well-developed patient SKIN: No rashes, ecchymoses or lesions. Cool and dry. CARDIOVASCULAR: Regular rate and rhythm without murmurs, gallops, or rubs. RESPIRATORY: Clear to auscultation. Breath sounds equal bilaterally. No wheezes , rales, or rhonchi. GASTROINTESTINAL: Abdomen, tender over the operative site. MUSCULOSKELETAL: Extremities without clubbing, cyanosis, or edema. No joint tenderness, effusion, or edema noted. No calf tenderness. Negative Homans sign bilaterally. NEUROLOGICAL: Awake and alert. Cranial nerves II through XII intact. Motor and sensory grossly within normal limits. Five out of 5 muscle strength in all muscle groups. Normal speech. Procedures 1. Diagnostic laparoscopy, lysis of adhesions converted to open with lysis of massive adhesions greater than 1-1/2 hours. 2. Small bowel resection of stenotic mid-jejunum. A/P Problem List: (1) Small bowel obstruction ICD Code: K56.609 - Unspecified intestinal obstruction, unspecified as to partial versus complete obstruction Status: Acute Assessment and Plan Small bowel obstruction s/p lysis of adhesions converted to open and Small bowel resection of stenotic mid-jejunum. Stable continue postoperative care. NGT has been discontinued as well as Casey catheter. 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 Consulted dietitian for TPN or TPN Acute kidney injury ration- continue IV fluid- will monitor. Follow-up urinalysis Leukocytosis/thrombocytosis- likely reactive- will monitor. Improving Hypokalemia. Improved DVT prophylaxis with SCD's. Pharmacological prophylaxis postoperatively if okay with general surgery Discharge Planning Transfer to medical floor if okay with general surgery Isacc Johnston MD Jun 04, 2017 15:15
[2017-06-04] MEDS: MORPHINE SULFATE 30 MG/30 ML PCA IV SCH (20:41)
[2017-06-04] MEDS: ENOXAPARIN SODIUM 40 MG/0.4 ML SYRINGE SQ SCH (20:47)
[2017-06-05] VITALS (10 sets, daily range): BP systolic 158–185; BP diastolic 73–83; PULSE 89–103; RESP 17–18; TEMP 96.6–99.5; O2SAT 90–97
[2017-06-05] MEDS: PCA - TOTAL MG MORPHINE DELIVERED PER SHIFT SCH (05:01)
[2017-06-05 08:24] LABS: AUTOMATED NEUTROPHIL # 8.5 TH/MM3 (1.8-7.7); BASOPHIL % 0.3 % (0.0-2.0); EOSINOPHIL # 0.1 TH/MM3 (0-0.4); EOSINOPHIL % 1.2 % (0.0-4.0); HEMATOCRIT 31.4 % (35.0-46.0); HEMOGLOBIN 10.5 GM/DL (11.6-15.3); LYMPH % 11.6 % (9.0-44.0); LYMPHOCYTE # 1.3 TH/MM3 (1.0-4.8); MEAN CELL VOLUME 87.9 FL (80.0-100.0); MEAN CORPUSCULAR HEMOGLOBIN 29.3 PG (27.0-34.0); MEAN CORPUSCULAR HGB CONC 33.3 % (32.0-36.0); MEAN PLATELET VOLUME 8.8 FL (7.0-11.0); MONO % 11.9 % (0.0-8.0); MONOCYTE # 1.3 TH/MM3 (0-0.9); PLATELET COUNT 337 TH/MM3 (150-450); RED BLOOD COUNT 3.57 MIL/MM3 (4.00-5.30); RED CELL DISTRIBUTION WIDTH 15.2 % (11.6-17.2); WHITE BLOOD COUNT 11.3 TH/MM3 (4.0-11.0)
[2017-06-05 08:46] LABS: BICARBONATE 24.7 MEQ/L (21.0-32.0); CALCIUM 7.8 MG/DL (8.5-10.1); CREATININE 0.95 MG/DL (0.50-1.00); MAGNESIUM 2.4 MG/DL (1.5-2.5)
[2017-06-05] MEDS: 1/2 NS + KCL 20 MEQ INJ 1,000 ML IV SCH ×2 (08:50→21:09)
[2017-06-05] MEDS: PANTOPRAZOLE SODIUM 40 MG VIAL IV PUSH SCH (09:00)
[2017-06-05] MEDS: BISACODYL 10 MG SUPP RECTAL SCH (09:00)
[2017-06-05] MEDS: MUPIROCIN 2% OINT 1 APPLIC/GM SYR EACH NARE SCH ×2 (10:30→21:08)
[2017-06-05 10:47] LABS: AMORPHOUS SEDIMENT, URINE OCC; BACTERIA, URINE RARE /hpf; BLOOD, URINE TRACE (NEG); GLUCOSE,URINE NEG (NEG); HYALINE CAST, URINE 1 /lpf (RARE); KETONE, URINE 40 mg/dL (NEG); MUCUS URINE FEW /lpf (OCC); NITRITE,URINE NEG (NEG); SQUAMOUS EPITHELIAL CELL URINE 1 /hpf (0-5); URINE COLOR YELLOW (YELLW/STRAW); URINE LEUKOCYTE ESTERASE NEG (NEG)
[2017-06-05 10:50] LABS: BILIRUBIN, URINE NEG (NEG)
--- NOTE | 2017-06-05 13:43 | HHI.PR ---
Subjective Subjective Notes passing some gas, still feels bloated Objective Vitals/I&O Vital Signs Date Time Temp Pulse Resp B/P (MAP) Pulse Ox O2 Delivery O2 Flow Rate FiO2 06/05/17 12:20 96 2.00 06/05/17 12:00 97.9 92 18 164/73 (103) 06/04/17 13:00 Nasal Cannula Labs Laboratory Tests Test 06/05/17 07:43 06/05/17 08:37 White Blood Count 11.3 Red Blood Count 3.57 Hemoglobin 10.5 Hematocrit 31.4 Mean Corpuscular Volume 87.9 Mean Corpuscular Hemoglobin 29.3 Mean Corpuscular Hemoglobin Concent 33.3 Red Cell Distribution Width 15.2 Platelet Count 337 Mean Platelet Volume 8.8 Neutrophils (%) (Auto) 75.0 Lymphocytes (%) (Auto) 11.6 Monocytes (%) (Auto) 11.9 Eosinophils (%) (Auto) 1.2 Basophils (%) (Auto) 0.3 Neutrophils # (Auto) 8.5 Lymphocytes # (Auto) 1.3 Monocytes # (Auto) 1.3 Eosinophils # (Auto) 0.1 Basophils # (Auto) 0.0 CBC Comment DIFF FINAL Differential Comment Blood Urea Nitrogen 35 Creatinine 0.95 Random Glucose 119 Calcium Level 7.8 Magnesium Level 2.4 Sodium Level 146 Potassium Level 4.4 Chloride Level 113 Carbon Dioxide Level 24.7 Anion Gap 8 Estimat Glomerular Filtration Rate 55 Urine Color YELLOW Urine Turbidity HAZY Urine pH 6.0 Urine Specific [place] 1.027 Urine Protein 100 Urine Glucose (UA) NEG Urine Ketones 40 Urine Occult Blood TRACE Urine Nitrite NEG Urine Bilirubin NEG Urine Urobilinogen LESS THAN 2.0 Urine Leukocyte Esterase NEG Urine RBC 4 Urine WBC 3 Urine Squamous Epithelial Cells 1 Urine Amorphous Sediment OCC Urine Bacteria RARE Urine Hyaline Casts 1 Urine Mucus FEW Microscopic Urinalysis Comment CULT NOT INDICATED Radiology Last Impressions Abdomen X-Ray 06/02/17 0600 Signed Impressions: Service Date/Time: Friday, June 02, 2017 05:25 - CONCLUSION: There is a single of dilated segment of small bowel in the left lower quadrant. However, there is less dilatation compared to yesterday's CT examination. Consider continued followup to resolution. Carlos Bassett MD Small Bowel X-Ray 06/02/17 0000 Signed Impressions: Service Date/Time: Friday, June 02, 2017 10:22 - CONCLUSION: Small bowel obstruction mid to distal small bowel left of midline. Terry Ladd MD FACR Abdomen/Pelvis CT 06/01/17 1000 Signed Impressions: Service Date/Time: Thursday, June 01, 2017 10:20 - CONCLUSION: Mid small bowel obstruction. Carlos Batista MD Abdomen: Post-op tenderness Narrative Exam incision c/d/i, mildly bloated, tympanic, non-surgical exam A/P Problem List: (1) Status post exploratory laparotomy ICD Codes: Z98.890 - Other specified postprocedural states Status: Acute (2) S/P small bowel resection ICD Codes: Z90.49 - Acquired absence of other specified parts of digestive tract Status: Acute (3) Small bowel obstruction ICD Codes: K56.609 - Unspecified intestinal obstruction, unspecified as to partial versus complete obstruction Status: Acute (4) Potassium serum decreased ICD Codes: E87.6 - Hypokalemia Status: Acute (5) Intra-abdominal adhesions ICD Codes: K66.0 - Peritoneal adhesions (postprocedural) (postinfection) Status: Chronic Assessment and Plan 87yo male with SBO s/p SBR for stricture, stable. PO ileus, has distended abdomen. if has bilious vomiting will need NG tube, continue sips of clears, OOB, pain control, PT. Rajan Jenkins MD Jun 05, 2017 13:43
--- NOTE | 2017-06-05 15:31 | HHI.PR ---
Subjective Remarks 87F who underwent adhesiolysis and had SBO post op is doing well today, tolerating liquid diet. She requested PO meds instead of the [employer] morphine pump , as, she doesn't like how morphine makes her feel. Objective Vitals Vital Signs Date Time Temp Pulse Resp B/P (MAP) Pulse Ox O2 Delivery O2 Flow Rate FiO2 06/05/17 12:20 96 2.00 06/05/17 12:00 97.9 92 18 164/73 (103) 96 06/05/17 08:00 99.5 99 18 185/77 (113) 90 06/05/17 05:01 16 06/05/17 05:00 158/78 (104) 06/05/17 04:55 98.2 103 17 178/83 (114) 94 06/05/17 00:15 160/80 (106) 06/05/17 00:00 99.5 101 18 171/79 (109) 94 06/04/17 20:41 16 06/04/17 20:41 20 06/04/17 20:00 97.8 88 16 180/80 (113) 95 06/04/17 16:00 98.5 96 22 138/2 (47) 94 I/O 06/04/17 06/04/17 06/04/17 06/05/17 06/05/17 06/05/17 07:00 15:00 23:00 07:00 15:00 23:00 Intake Total 1210 ml 1892 ml 480 ml 490 ml Output Total 350 ml 610 ml Balance 860 ml 1282 ml 480 ml 490 ml Intake Oral 180 ml 240 ml 480 ml IV Total 1000 ml 1652 ml 490 ml Tube Irrigant 30 ml Output Urine Total 350 ml 600 ml Gastric Drainage Total 0 ml 10 ml # Voids 3 # Bowel Movements 0 Result Diagram: 06/05/17 0743 06/05/17 0743 Objective Remarks GENERAL: Well-nourished, well-developed patient, appears younger than stated age. SKIN: Warm and dry. HEAD: Normocephalic. EYES: No scleral icterus. No injection or drainage. NECK: Supple, trachea midline. No JVD or lymphadenopathy. CARDIOVASCULAR: Regular rate and rhythm without murmurs, gallops, or rubs. RESPIRATORY: Breath sounds equal bilaterally. No accessory muscle use. GASTROINTESTINAL: Abdomen soft, non-tender, nondistended, hypoactive bowel sounds EXTREMITIES: No cyanosis, or edema. NEUROLOGICAL: Awake, alert, and oriented x 3. Non-focal. Procedures 1. Diagnostic laparoscopy, lysis of adhesions converted to open with lysis of massive adhesions greater than 1-1/2 hours. 2. Small bowel resection of stenotic mid-jejunum. A/P Problem List: (1) Small bowel obstruction ICD Code: K56.609 - Unspecified intestinal obstruction, unspecified as to partial versus complete obstruction Status: Acute Assessment and Plan SBO following lysis of adhesions Surgery converted to open and small bowel resection of stenotic mid-jejunum Doing well now post op, tolerating liquid diet Requested cessation of [employer] pump Appreciate Surgery following Will advance diet to puree Leukocytosis Normal urinalysis, asymptomatic Hypokalemia Resolved DVT Prophylaxis SCD hose Discharge Planning Will advance diet slowly and follow surgery's discretion on discharge timing Lazaro Hopkins MD Jun 05, 2017 15:31
[2017-06-05] MEDS: ENOXAPARIN SODIUM 40 MG/0.4 ML SYRINGE SQ SCH (18:11)
[2017-06-05] MEDS: oxyCODONE/ACETAMINOPHEN 5 MG/325 MG TAB PO PRN (23:32)
[2017-06-06] VITALS (7 sets, daily range): BP systolic 130–186; BP diastolic 65–90; PULSE 72–96; RESP 17–20; TEMP 97.7–99.1; O2SAT 94–95
[2017-06-06] MEDS: cloNIDine HCL 0.1 MG TAB PO PRN ×2 (04:00→20:52)
[2017-06-06] MEDS: 1/2 NS + KCL 20 MEQ INJ 1,000 ML IV SCH (07:49)
[2017-06-06] MEDS: BISACODYL 10 MG SUPP RECTAL SCH (07:49)
[2017-06-06] MEDS: PANTOPRAZOLE SODIUM 40 MG VIAL IV PUSH SCH (07:50)
[2017-06-06] MEDS: MUPIROCIN 2% OINT 1 APPLIC/GM SYR EACH NARE SCH ×2 (07:50→21:00)
[2017-06-06] MEDS: oxyCODONE/ACETAMINOPHEN 5 MG/325 MG TAB PO PRN ×3 (12:28→20:51)
--- NOTE | 2017-06-06 13:12 | HHI.PR ---
cc: Jose Arellano MD Subjective Subjective Notes DAILY PROGRESS NOTE FOR SURGICAL ATTENDING, DR. JOSE ARELLANO Patient sitting up in chair Patient had a bowel movement Patient would like more to eat Patient doesn't like taking IV morphine because she was hallucinating a little boy was in her room Objective Vitals/I&O Vital Signs Date Time Temp Pulse Resp B/P (MAP) Pulse Ox O2 Delivery O2 Flow Rate FiO2 06/06/17 12:00 98.1 82 17 151/77 (918) 95 06/05/17 19:48 2.00 06/04/17 13:00 Nasal Cannula Radiology Last Impressions Abdomen X-Ray 06/02/17 0600 Signed Impressions: Service Date/Time: Friday, June 02, 2017 05:25 - CONCLUSION: There is a single of dilated segment of small bowel in the left lower quadrant. However, there is less dilatation compared to yesterday's CT examination. Consider continued followup to resolution. Carlos Bassett MD Small Bowel X-Ray 06/02/17 0000 Signed Impressions: Service Date/Time: Friday, June 02, 2017 10:22 - CONCLUSION: Small bowel obstruction mid to distal small bowel left of midline. Terry Ladd MD FACR Abdomen/Pelvis CT 06/01/17 1000 Signed Impressions: Service Date/Time: Thursday, June 01, 2017 10:20 - CONCLUSION: Mid small bowel obstruction. Carlos Batista MD Cardiovascular: Regular Lungs: Clear Abdomen: Post-op tenderness Extremities: Perfused, SCD's on Wound Wound : Wound Location: Abdomen Appearance: Clean & Dry Dressing: Dry A/P Problem List: (1) S/P small bowel resection ICD Codes: Z90.49 - Acquired absence of other specified parts of digestive tract Status: Acute (2) Status post exploratory laparotomy ICD Codes: Z98.890 - Other specified postprocedural states Status: Acute (3) Small bowel obstruction ICD Codes: K56.609 - Unspecified intestinal obstruction, unspecified as to partial versus complete obstruction Status: Acute (4) Potassium serum decreased ICD Codes: E87.6 - Hypokalemia Status: Acute (5) Intra-abdominal adhesions ICD Codes: K66.0 - Peritoneal adhesions (postprocedural) (postinfection) Status: Chronic Assessment and Plan 87-year-old female status post expiratory laparotomy lysis of adhesions small bowel resection Continued improvement Slowly advance diet and activities as tolerated Attending Statement NOTE FOR SURGICAL ATTENDING, DR. JOSE ARELLANO I attest that I had a [id number] encounter with the patient on the same day, and personally performed and documented my assessment and findings in the medical record. The following services were provided during this hospital visit: Chart data review, vital sign assessments/reviewing monitor data Review of consultations notes if present. Medication orders/review and/or management Ordering and/or reviewing lab tests Ordering and/or interpreting/reviewing x-rays and/or diagnostic studies Care of the patient and discussion of the patient with the care team Documentation time To help prompt me to consider important information that might be impacting today's encounter and assessment, information from prior notes written by myself or my colleagues may have been "brought forward/copy and pasted" into today's note. Jose Arellano MD Jun 06, 2017 13:12
--- NOTE | 2017-06-06 13:39 | HHI.PR ---
Subjective Remarks Pt feeling better each day. Tolerated puree food. No nausea. No bowel movement. Pain well controlled. Objective Vitals Vital Signs Date Time Temp Pulse Resp B/P (MAP) Pulse Ox O2 Delivery O2 Flow Rate FiO2 06/06/17 12:00 98.1 82 17 151/77 (101) 95 06/06/17 09:32 72 06/06/17 08:00 97.7 72 17 130/65 (86) 95 06/06/17 04:00 98.8 83 20 186/78 (114) 94 06/06/17 00:00 99.1 94 20 184/79 (114) 94 06/05/17 20:00 98.5 89 18 166/77 (106) 97 06/05/17 19:48 96 2.00 06/05/17 16:00 96.6 96 18 178/77 (110) 94 I/O 06/05/17 06/05/17 06/05/17 06/06/17 06/06/17 06/06/17 07:00 15:00 23:00 07:00 15:00 23:00 Intake Total 480 ml 1490 ml 2170 ml 120 ml Output Total 350 ml Balance 480 ml 1490 ml 2170 ml -230 ml Intake Oral 480 ml 960 ml 120 ml IV Total 1490 ml 1210 ml Output Urine Total 350 ml # Voids 3 3 3 # Bowel Movements 0 2 Result Diagram: 06/05/1743 06/05/17 0743 Objective Remarks GENERAL: Well-nourished, well-developed patient, appears younger than stated age. SKIN: Warm and dry. HEAD: Normocephalic. EYES: No scleral icterus. No injection or drainage. NECK: Supple, trachea midline. No JVD or lymphadenopathy. CARDIOVASCULAR: Regular rate and rhythm without murmurs, gallops, or rubs. RESPIRATORY: Breath sounds equal bilaterally. No accessory muscle use. GASTROINTESTINAL: Abdomen soft, non-tender, nondistended, hypoactive bowel sounds EXTREMITIES: No cyanosis, or edema. NEUROLOGICAL: Awake, alert, and oriented x 3. Non-focal. Procedures 1. Diagnostic laparoscopy, lysis of adhesions converted to open with lysis of massive adhesions greater than 1-1/2 hours. 2. Small bowel resection of stenotic mid-jejunum. A/P Problem List: (1) Small bowel obstruction ICD Code: K56.609 - Unspecified intestinal obstruction, unspecified as to partial versus complete obstruction Status: Acute Assessment and Plan SBO following lysis of adhesions Surgery converted to open and small bowel resection of stenotic mid-jejunum Doing well now post op, tolerated puree diet Doing fine with PO pain meds Appreciate Surgery following Will advance diet to solids D/C IV fluids today (trace edema) Leukocytosis Normal urinalysis, asymptomatic Hypokalemia Resolved DVT Prophylaxis SCD hose Discharge Planning Will advance diet slowly and follow surgery's discretion on discharge timing Lazaro Hopkins MD Jun 06, 2017 13:39
[2017-06-06] MEDS: ENOXAPARIN SODIUM 40 MG/0.4 ML SYRINGE SQ SCH (18:30)
[2017-06-06 22:33] LABS: AUTOMATED NEUTROPHIL # 18.6 TH/MM3 (1.8-7.7); BASOPHIL % 0.1 % (0.0-2.0); EOSINOPHIL # 0.2 TH/MM3 (0-0.4); EOSINOPHIL % 0.9 % (0.0-4.0); HEMATOCRIT 36.5 % (35.0-46.0); HEMOGLOBIN 11.7 GM/DL (11.6-15.3); LYMPH % 6.8 % (9.0-44.0); LYMPHOCYTE # 1.4 TH/MM3 (1.0-4.8); MEAN CELL VOLUME 87.6 FL (80.0-100.0); MEAN CORPUSCULAR HEMOGLOBIN 28.1 PG (27.0-34.0); MEAN PLATELET VOLUME 9.5 FL (7.0-11.0); MONOCYTE # 1.1 TH/MM3 (0-0.9); NEUT % 87.2 % (16.0-70.0); PLATELET COUNT 375 TH/MM3 (150-450); RED BLOOD COUNT 4.17 MIL/MM3 (4.00-5.30); RED CELL DISTRIBUTION WIDTH 15.2 % (11.6-17.2); WHITE BLOOD COUNT 21.3 TH/MM3 (4.0-11.0)
[2017-06-07] VITALS (7 sets, daily range): BP systolic 134–170; BP diastolic 65–97; PULSE 85–97; RESP 15–18; TEMP 97.2–98.1; O2SAT 92–97
[2017-06-07] MEDS: BISACODYL 10 MG SUPP RECTAL SCH (09:00)
[2017-06-07] MEDS: MUPIROCIN 2% OINT 1 APPLIC/GM SYR EACH NARE SCH ×2 (09:56→20:32)
[2017-06-07] MEDS: oxyCODONE/ACETAMINOPHEN 5 MG/325 MG TAB PO PRN ×3 (09:57→20:30)
--- NOTE | 2017-06-07 13:46 | HHI.PR ---
Subjective Remarks Pt is improving daily, walking down the [place] more than once a day, tolerating solid PO in small self-regulated amounts, had a small bowel movement today. Pain is controlled for the most part with occasional breakthrough. Objective Vitals Vital Signs Date Time Temp Pulse Resp B/P (MAP) Pulse Ox O2 Delivery O2 Flow Rate FiO2 06/07/17 11:59 97.7 91 18 134/74 (94) 97 06/07/17 10:09 94 Nasal Cannula 2.00 06/07/17 07:44 97.2 85 18 157/97 (117) 94 06/07/17 04:00 160/72 (101) 06/07/17 00:00 98.0 97 18 170/72 (104) 94 06/06/17 20:00 98.4 96 20 183/81 (115) 94 06/06/17 16:00 98.7 80 18 156/90 (112) 95 I/O 06/06/17 06/06/17 06/06/17 06/07/17 06/07/17 06/07/17 07:00 15:00 23:00 07:00 15:00 23:00 Intake Total 120 ml 1800 ml 360 ml Output Total 350 ml 300 ml Balance -230 ml 1800 ml 60 ml Intake Oral 120 ml 960 ml 360 ml IV Total 840 ml Output Urine Total 350 ml 300 ml # Voids 3 4 # Bowel Movements 2 5 Result Diagram: 06/06/17212606/05/17 0743 Objective Remarks GENERAL: Well-nourished, well-developed patient, appears younger than stated age. SKIN: Warm and dry. HEAD: Normocephalic. EYES: No scleral icterus. No injection or drainage. NECK: Supple, trachea midline. No JVD or lymphadenopathy. CARDIOVASCULAR: Regular rate and rhythm without murmurs, gallops, or rubs. RESPIRATORY: Breath sounds equal bilaterally. No accessory muscle use. GASTROINTESTINAL: Abdomen soft, non-tender, nondistended, bloating, normal active bowel sounds EXTREMITIES: No cyanosis, or edema. NEUROLOGICAL: Awake, alert, and oriented x 3. Non-focal. Procedures 1. Diagnostic laparoscopy, lysis of adhesions converted to open with lysis of massive adhesions greater than 1-1/2 hours. 2. Small bowel resection of stenotic mid-jejunum. A/P Problem List: (1) Small bowel obstruction ICD Code: K56.609 - Unspecified intestinal obstruction, unspecified as to partial versus complete obstruction Status: Acute Assessment and Plan SBO following lysis of adhesions Surgery converted to open and small bowel resection of stenotic mid-jejunum Doing well now post op, tolerated solid foods Pain adequately controlled Appreciate Surgery following Leukocytosis Normal urinalysis, asymptomatic Hypokalemia Resolved DVT Prophylaxis SCD hose Discharge Planning Home with home health when cleared by surgery Lazaro Hopkins MD Jun 07, 2017 13:46
--- NOTE | 2017-06-07 16:08 | HHI.PR ---
cc: Navarro Arellano MD Subjective Subjective Notes DAILY PROGRESS NOTE FOR SURGICAL ATTENDING, DR. NAVARRO ARELLANO Seen about 0800 In bathroom No complaints; going to eat breakfast Objective Vitals/I&O Vital Signs Date Time Temp Pulse Resp B/P (MAP) Pulse Ox O2 Delivery O2 Flow Rate FiO2 06/07/17 15:56 97.9 91 18 144/65 (91) 97 06/07/17 10:09 Nasal Cannula 2.00 Labs Laboratory Tests Test 06/06/17 21:27 White Blood Count 21.3 Red Blood Count 4.17 Hemoglobin 11.7 Hematocrit 36.5 Mean Corpuscular Volume 87.6 Mean Corpuscular Hemoglobin 28.1 Mean Corpuscular Hemoglobin Concent 32.0 Red Cell Distribution Width 15.2 Platelet Count 375 Mean Platelet Volume 9.5 Neutrophils (%) (Auto) 87.2 Lymphocytes (%) (Auto) 6.8 Monocytes (%) (Auto) 5.0 Eosinophils (%) (Auto) 0.9 Basophils (%) (Auto) 0.1 Neutrophils # (Auto) 18.6 Lymphocytes # (Auto) 1.4 Monocytes # (Auto) 1.1 Eosinophils # (Auto) 0.2 Basophils # (Auto) 0.0 CBC Comment DIFF FINAL Differential Comment Radiology Last Impressions Chest X-Ray 06/07/17 0000 Signed Impressions: Service Date/Time: Wednesday, June 07, 2017 16:16 - CONCLUSION: 1. Small left-sided pleural effusion. 2. Possible small 1 cm nodule laterally in the right perihilar distribution. Lungs are otherwise clear. Kirill Oconnell MD Abdomen X-Ray 06/02/17 0600 Signed Impressions: Service Date/Time: Friday, June 02, 2017 05:25 - CONCLUSION: There is a single of dilated segment of small bowel in the left lower quadrant. However, there is less dilatation compared to yesterday's CT examination. Consider continued followup to resolution. Carlos Bassett MD Small Bowel X-Ray 06/02/17 0000 Signed Impressions: Service Date/Time: Friday, June 02, 2017 10:22 - CONCLUSION: Small bowel obstruction mid to distal small bowel left of midline. Terry Ladd MD FACR Abdomen/Pelvis CT 06/01/17 1000 Signed Impressions: Service Date/Time: Thursday, June 01, 2017 10:20 - CONCLUSION: Mid small bowel obstruction. Carlos Batista MD Cardiovascular: Regular Lungs: Clear Abdomen: Other (mildly distended; philip in place ), Post-op tenderness Extremities: No edema Wound Wound : Wound Location: Abdomen Appearance: Clean & Dry Dressing: Dry (wound a little better today mostly at the inferior edge no fluctuance palpated slightly tender) A/P Problem List: (1) S/P small bowel resection ICD Codes: Z90.49 - Acquired absence of other specified parts of digestive tract Status: Acute (2) Status post exploratory laparotomy ICD Codes: Z98.890 - Other specified postprocedural states Status: Acute (3) Small bowel obstruction ICD Codes: K56.609 - Unspecified intestinal obstruction, unspecified as to partial versus complete obstruction Status: Acute (4) Potassium serum decreased ICD Codes: E87.6 - Hypokalemia Status: Acute (5) Intra-abdominal adhesions ICD Codes: K66.0 - Peritoneal adhesions (postprocedural) (postinfection) Status: Chronic Assessment and Plan 87 year old female with SBO secondary to massive adhesions; POD5 dx lap converted to ex lap; resection of mid jejunum -Regular diet; encouraged small more frequent meals -OOB and mobilize -Pain control -Elevated WBC; CXR okay; UA okay ---continue to monitor Attending Statement NOTE FOR SURGICAL ATTENDING, DR. NAVARRO ARELLANO Were slightly tender Chest x-ray shows an effusion White count 21,000 Tolerating regular diet with bowel movements Will start antibiotics to cover for pneumonia UTI wound infection Otherwise she is doing tremendous feels good. I agree with above assessment and plan. The exam, history, and the medical decision-making described in the above note were completed with the assistance of the mid-level provider. I reviewed and agree with the findings presented. I attest that I had a [id number] encounter with the patient on the same day, and personally performed and documented my assessment and findings in the medical record. The following services were provided during this hospital visit: Chart data review, vital sign assessments/reviewing monitor data Review of consultations notes if present. Medication orders/review and/or management Ordering and/or reviewing lab tests Ordering and/or interpreting/reviewing x-rays and/or diagnostic studies Care of the patient and discussion of the patient with the care team Documentation time To help prompt me to consider important information that might be impacting today's encounter and assessment, information from prior notes written by myself or my colleagues may have been "brought forward/copy and pasted" into today's note. Sydnie Kumar Jun 07, 2017 16:07 Navarro Arellano MD Jun 07, 2017 18:17
--- NOTE | 2017-06-07 16:54 | RADRPT ---
EXAM DATE/TIME: 06/07/2017 16:16 [facility] COMPARISON: No previous studies available for comparison. INDICATIONS : Short of breath today MEDICAL HISTORY : small bowel obstruction SURGICAL HISTORY : Appendectomy. Hysterectomy. ENCOUNTER: Initial ACUITY: 1 day PAIN SCORE: 0/10 LOCATION: Bilateral chest FINDINGS: A single view of the chest demonstrates the lungs to be symmetrically aerated with a small left-sided pleural effusion. Possible small 1 cm nodule laterally in the right perihilar distribution. Lungs ar e otherwise clear. Heart size is normal. Mild S-shaped scoliosis of the dorsal spine. Osseous structu res are otherwise intact. CONCLUSION: 1. Small left-sided pleural effusion. 2. Possible small 1 cm nodule laterally in the right perihilar distribution. Lungs are otherwise kenn r. Kirill Oconnell MD on June 07, 2017 at 16:48 Board Certified Radiologist. This report was verified electronically.
[2017-06-07] MEDS: ENOXAPARIN SODIUM 40 MG/0.4 ML SYRINGE SQ SCH (18:10)
[2017-06-07] MEDS: LEVOFLOXACIN 750 MG PREMIX INJ 150 ML IV SCH (20:29)
[2017-06-08] VITALS: BP 155/72; PULSE 98; RESP 15; TEMP 98.7; O2SAT 91
[2017-06-08] MEDS: oxyCODONE/ACETAMINOPHEN 5 MG/325 MG TAB PO PRN (00:59)
[2017-06-08 07:30] LABS: AUTOMATED NEUTROPHIL # 24.3 TH/MM3 (1.8-7.7); BASOPHIL % 0.2 % (0.0-2.0); EOSINOPHIL # 0.3 TH/MM3 (0-0.4); HEMATOCRIT 29.7 % (35.0-46.0); HEMOGLOBIN 9.7 GM/DL (11.6-15.3); LYMPH % 4.8 % (9.0-44.0); LYMPHOCYTE # 1.3 TH/MM3 (1.0-4.8); MEAN CELL VOLUME 86.7 FL (80.0-100.0); MEAN CORPUSCULAR HEMOGLOBIN 28.2 PG (27.0-34.0); MEAN CORPUSCULAR HGB CONC 32.5 % (32.0-36.0); MEAN PLATELET VOLUME 9.5 FL (7.0-11.0); MONO % 4.2 % (0.0-8.0); MONOCYTE # 1.1 TH/MM3 (0-0.9); NEUT % 89.8 % (16.0-70.0); PLATELET COUNT 331 TH/MM3 (150-450); RED BLOOD COUNT 3.42 MIL/MM3 (4.00-5.30); RED CELL DISTRIBUTION WIDTH 15.3 % (11.6-17.2)
[2017-06-08 08:00] VITALS: BP 143/65; PULSE 89; RESP 16; TEMP 97.9; O2SAT 94
[2017-06-08] MEDS: BISACODYL 10 MG SUPP RECTAL SCH (09:00)
[2017-06-08] MEDS: MUPIROCIN 2% OINT 1 APPLIC/GM SYR EACH NARE SCH ×2 (09:10→21:02)
[2017-06-08] MEDS ORDERED: DIATRIZOATE MEGLUM/DIATRIZOATE SOD 9 ML CUP PO ONE (09:56)
--- NOTE | 2017-06-08 10:17 | HHI.PR ---
cc: Navarro Arellano MD Subjective Subjective Notes DAILY PROGRESS NOTE FOR SURGICAL ATTENDING, DR. NAVARRO ARELLANO Up to chair Increased abdominal pain today Objective Vitals/I&O Vital Signs Date Time Temp Pulse Resp B/P (MAP) Pulse Ox O2 Delivery O2 Flow Rate FiO2 06/08/17 08:00 97.9 89 16 143/65 (91) 94 06/07/17 10:09 Nasal Cannula 2.00 Labs Laboratory Tests Test 06/08/17 05:19 White Blood Count 27.0 Red Blood Count 3.42 Hemoglobin 9.7 Hematocrit 29.7 Mean Corpuscular Volume 86.7 Mean Corpuscular Hemoglobin 28.2 Mean Corpuscular Hemoglobin Concent 32.5 Red Cell Distribution Width 15.3 Platelet Count 331 Mean Platelet Volume 9.5 Neutrophils (%) (Auto) 89.8 Lymphocytes (%) (Auto) 4.8 Monocytes (%) (Auto) 4.2 Eosinophils (%) (Auto) 1.0 Basophils (%) (Auto) 0.2 Neutrophils # (Auto) 24.3 Lymphocytes # (Auto) 1.3 Monocytes # (Auto) 1.1 Eosinophils # (Auto) 0.3 Basophils # (Auto) 0.0 CBC Comment DIFF FINAL Differential Comment Radiology Last Impressions Abdomen/Pelvis CT 06/08/17 0000 Signed Impressions: Service Date/Time: Thursday, June 08, 2017 13:10 - CONCLUSION: 1. 7.3 x 3.1 cm abscess within the left hemipelvis. This fluid collection would be very difficult to drain percutaneously secondary to the superior gluteal artery location. We could entertain a transrectal route for abscess drainage catheter placement if clinically warranted. I spoke with Dr.Dr Arellano. 2. Ileus type pattern. 3. Tiny bilateral pleural effusions with associated passive atelectasis. 4. Fluid and air tracking along the anterior abdominal wall wound. Presumably this is communicating with the overlying skin surface. It does not have the typical appearance of an abscess. 5. Pneumoperitoneum consistent with the postoperative state. Trey Davis Jr., MD Chest X-Ray 06/07/17 0000 Signed Impressions: Service Date/Time: Wednesday, June 07, 2017 16:16 - CONCLUSION: 1. Small left-sided pleural effusion. 2. Possible small 1 cm nodule laterally in the right perihilar distribution. Lungs are otherwise clear. Kirill Oconnell MD Abdomen X-Ray 06/02/17 0600 Signed Impressions: Service Date/Time: Friday, June 02, 2017 05:25 - CONCLUSION: There is a single of dilated segment of small bowel in the left lower quadrant. However, there is less dilatation compared to yesterday's CT examination. Consider continued followup to resolution. Carlos Bassett MD Small Bowel X-Ray 06/02/17 0000 Signed Impressions: Service Date/Time: Friday, June 02, 2017 10:22 - CONCLUSION: Small bowel obstruction mid to distal small bowel left of midline. Terry Ladd MD FACR Cardiovascular: Regular Lungs: Clear Abdomen: Other (midline incision ---- tender; redness noted; palpable fluid colllection just under skin; distended; tender to palpation ) Extremities: Other (BLE edema ----non pitting ) Wound Wound : Wound Location: Abdomen Appearance: Erythema, Induration A/P Problem List: (1) Wound infection after surgery ICD Codes: T81.4XXA - Infection following a procedure, initial encounter (2) Pelvic abscess in female ICD Codes: N73.9 - Female pelvic inflammatory disease, unspecified (3) S/P small bowel resection ICD Codes: Z90.49 - Acquired absence of other specified parts of digestive tract Status: Acute (4) Status post exploratory laparotomy ICD Codes: Z98.890 - Other specified postprocedural states Status: Acute (5) Small bowel obstruction ICD Codes: K56.609 - Unspecified intestinal obstruction, unspecified as to partial versus complete obstruction Status: Acute (6) Potassium serum decreased ICD Codes: E87.6 - Hypokalemia Status: Acute (7) Intra-abdominal adhesions ICD Codes: K66.0 - Peritoneal adhesions (postprocedural) (postinfection) Status: Chronic Assessment and Plan 87 year old female with SBO secondary to massive adhesions; POD6 dx lap converted to ex lap; resection of mid jejunum -Concern for wound infection; elevated WBC today; Levaquin started; CT abd/ pelvis today -NPO -OOB and mobilize -Pain control Attending Statement NOTE FOR SURGICAL ATTENDING, DR. NAVARRO ARELLANO A little more tenderness in her abdomen Slightly tender Will obtain CT scan of the abdomen White count increased despite antibiotic therapy CT was done which showed a subcutaneous venous abscess and a pelvic abscess as well The patient's wound was then opened, philip removed and a fair amount of purulent material returned it was packed with wet-to-dry dressings The wound was irrigated as well cults taken for C and S I agree with above assessment and plan. The exam, history, and the medical decision-making described in the above note were completed with the assistance of the mid-level provider. I reviewed and agree with the findings presented. I attest that I had a [id number] encounter with the patient on the same day, and personally performed and documented my assessment and findings in the medical record. The following services were provided during this hospital visit: Chart data review, vital sign assessments/reviewing monitor data Review of consultations notes if present. Medication orders/review and/or management Ordering and/or reviewing lab tests Ordering and/or interpreting/reviewing x-rays and/or diagnostic studies Care of the patient and discussion of the patient with the care team Documentation time To help prompt me to consider important information that might be impacting today's encounter and assessment, information from prior notes written by myself or my colleagues may have been "brought forward/copy and pasted" into today's note. Sydnie Kumar Jun 08, 2017 10:17 Navarro Arellano MD Jun 08, 2017 11:10
[2017-06-08] MEDS: MORPHINE SULFATE 2 MG/ML INJ IV PUSH PRN ×4 (10:54→20:51)
--- NOTE | 2017-06-08 11:39 | HHI.PR ---
Subjective Remarks Pt is sitting up in a chair in front of her breakfast, not eating. She complains of pain in her abdomen that won't subside. I recommended she stop eating and drinking for now, back to bed. Objective Vitals Vital Signs Date Time Temp Pulse Resp B/P (MAP) Pulse Ox O2 Delivery O2 Flow Rate FiO2 06/08/17 08:00 97.9 89 16 143/65 (91) 94 06/08/17 00:00 98.7 98 15 155/72 (99) 91 06/07/17 20:00 98.1 97 15 160/80 (106) 92 06/07/17 15:56 97.9 91 18 144/65 (91) 97 06/07/17 11:59 97.7 91 18 134/74 (94) 97 I/O 06/07/17 06/07/17 06/07/17 06/08/17 06/08/17 06/08/17 07:00 15:00 23:00 07:00 15:00 23:00 Intake Total 360 ml 770 ml 120 ml Output Total 300 ml 850 ml Balance 60 ml -80 ml 120 ml Intake Oral 360 ml 620 ml 120 ml IV Total 150 ml Output Urine Total 300 ml 850 ml # Voids 2 5 # Bowel Movements 5 1 4 Result Diagram: 06/08/17 0519 06/05/17 0743 Objective Remarks GENERAL: Well-nourished, well-developed patient, appears younger than stated age. SKIN: Warm and dry. HEAD: Normocephalic. EYES: No scleral icterus. No injection or drainage. NECK: Supple, trachea midline. No JVD or lymphadenopathy. CARDIOVASCULAR: Regular rate and rhythm without murmurs, gallops, or rubs. RESPIRATORY: Breath sounds equal bilaterally. No accessory muscle use. GASTROINTESTINAL: Abdomen mildly distended, normal active bowel sounds, tender to palpation EXTREMITIES: No cyanosis, or edema. NEUROLOGICAL: Awake, alert, and oriented x 3. Non-focal. Procedures 1. Diagnostic laparoscopy, lysis of adhesions converted to open with lysis of massive adhesions greater than 1-1/2 hours. 2. Small bowel resection of stenotic mid-jejunum. A/P Problem List: (1) Small bowel obstruction ICD Code: K56.609 - Unspecified intestinal obstruction, unspecified as to partial versus complete obstruction Status: Acute Assessment and Plan SBO following lysis of adhesions Surgery converted to open and small bowel resection of stenotic mid-jejunum Recurrence of pain today, recommended NPO until pain improves Monitor closely today due to recent SBO, if pain persists will get imaging Appreciate Surgery following Leukocytosis Increasing Normal urinalysis, asymptomatic, afebrile Hypokalemia Resolved DVT Prophylaxis SCD hose Discharge Planning Home with home health when cleared by surgery Lazaro Hopkins MD Jun 08, 2017 11:39
[2017-06-08 12:00] VITALS: BP 138/73; PULSE 86; RESP 17; TEMP 98.1; O2SAT 95
[2017-06-08] MEDS ORDERED: IOHEXOL 350 MG/ML 10 ML VIAL (for RAD DIAG) IVCONTRAST ONE (13:13)
--- NOTE | 2017-06-08 14:31 | RADRPT ---
EXAM DATE/TIME: 06/08/2017 13:10 [place] COMPARISON: CT ABDOMEN & PELVIS W/O CONTRAST, June 01, 2017, 10:20. INDICATIONS : Diffuse abdomen pain. IV CONTRAST: 96 cc Omnipaque 350 (iohexol) IV ORAL CONTRAST: No oral contrast ingested. RADIATION DOSE: 6.77 CTDIvol (mGy) MEDICAL HISTORY : None SURGICAL HISTORY : Appendectomy. Hysterectomy. ENCOUNTER: Initial ACUITY: 1 day PAIN SCALE: 9/10 LOCATION: Bilateral upper quadrant gastric region. TECHNIQUE: Volumetric scanning of the abdomen and pelvis was performed. Using automated exposure control and ad justment of the mA and/or kV according to patient size, radiation dose was kept as low as reasonably achievable to obtain optimal diagnostic quality images. DICOM format image data is available electro nically for review and comparison. FINDINGS: LOWER LUNGS: Tiny bilateral pleural effusions. The left is larger than the right. There is associated passive atel ectasis. Coronary artery atherosclerotic calcifications. LIVER: Homogeneous density without lesion. There is no dilation of the biliary tree. No calcified gallston es. SPLEEN: Normal size without lesion. PANCREAS: Within normal limits. KIDNEYS: Normal in size and shape. There is no mass, stone or hydronephrosis. ADRENAL GLANDS: Within normal limits. VASCULAR: There is no aortic aneurysm. BOWEL/MESENTERY: There is a fluid collection within the left hemipelvis consistent with a small abscess. It measures 7 .3 x 3.1 cm. The superior gluteal artery is between this abscess and the sciatic notch. There are mil dly dilated loops of small bowel and large bowel consistent with an ileus pattern. A small volume of pneumoperitoneum is seen in this patient that is postop. ABDOMINAL WALL: There is fluid tracking along the intra-abdominal wall wound. There is also air mixed in with this. S taples overlie the intra-abdominal wall. No herniation observed. RETROPERITONEUM: There is no lymphadenopathy. BLADDER: No wall thickening or mass. REPRODUCTIVE: Within normal limits. INGUINAL: There is no lymphadenopathy or hernia. MUSCULOSKELETAL: A degenerative mildly scoliotic spine. Degenerative changes involving the pubic symphysis. CONCLUSION: 1. 7.3 x 3.1 cm abscess within the left hemipelvis. This fluid collection would be very difficult to drain percutaneously secondary to the superior gluteal artery location. We could entertain a transrec suraj route for abscess drainage catheter placement if clinically warranted. I spoke with Dr.Dr Arellano . 2. Ileus type pattern. 3. Tiny bilateral pleural effusions with associated passive atelectasis. 4. Fluid and air tracking along the anterior abdominal wall wound. Presumably this is communicating w ith the overlying skin surface. It does not have the typical appearance of an abscess. 5. Pneumoperitoneum consistent with the postoperative state. Trey Davis Jr., MD on June 08, 2017 at 14:22 Board Certified Radiologist. This report was verified electronically.
[2017-06-08 16:00] VITALS: BP 145/75; PULSE 82; RESP 18; TEMP 97.5; O2SAT 95
[2017-06-08] MEDS: SODIUM CHLOR 0.9% 1000 ML INJ 1,000 ML IV SCH (16:05)
[2017-06-08] MEDS: ENOXAPARIN SODIUM 40 MG/0.4 ML SYRINGE SQ SCH (17:53)
[2017-06-08 20:00] VITALS: BP 157/77; PULSE 101; RESP 14; TEMP 99.4; O2SAT 92
[2017-06-08] MEDS: metroNIDAZOLE 500 MG INJ 100 ML IV SCH (21:02)
[2017-06-09] VITALS: BP 149/72; PULSE 100; RESP 14; TEMP 98.9; O2SAT 93
[2017-06-09] MEDS: MORPHINE SULFATE 2 MG/ML INJ IV PUSH PRN ×5 (00:05→13:24)
[2017-06-09] MEDS: LEVOFLOXACIN 750 MG PREMIX INJ 150 ML IV SCH (00:06)
[2017-06-09] MEDS: metroNIDAZOLE 500 MG INJ 100 ML IV SCH ×3 (03:12→20:37)
[2017-06-09 08:00] VITALS: BP 162/69; PULSE 81; RESP 17; TEMP 97.8; O2SAT 96
[2017-06-09] MEDS: MUPIROCIN 2% OINT 1 APPLIC/GM SYR EACH NARE SCH ×2 (08:26→20:37)
[2017-06-09] MEDS: BISACODYL 10 MG SUPP RECTAL SCH (08:26)
[2017-06-09] MEDS: oxyCODONE/ACETAMINOPHEN 5 MG/325 MG TAB PO PRN ×4 (08:26→20:37)
[2017-06-09 08:55] VITALS: O2SAT 94
[2017-06-09 10:54] LABS: BASOPHIL % 0.1 % (0.0-2.0); EOSINOPHIL # 0.2 TH/MM3 (0-0.4); EOSINOPHIL % 0.7 % (0.0-4.0); HEMATOCRIT 30.7 % (35.0-46.0); HEMOGLOBIN 10.1 GM/DL (11.6-15.3); LYMPH % 5.1 % (9.0-44.0); LYMPHOCYTE # 1.2 TH/MM3 (1.0-4.8); MEAN CELL VOLUME 86.2 FL (80.0-100.0); MEAN CORPUSCULAR HEMOGLOBIN 28.4 PG (27.0-34.0); MEAN CORPUSCULAR HGB CONC 32.9 % (32.0-36.0); MEAN PLATELET VOLUME 8.6 FL (7.0-11.0); MONO % 5.1 % (0.0-8.0); MONOCYTE # 1.2 TH/MM3 (0-0.9); PLATELET COUNT 410 TH/MM3 (150-450); RED BLOOD COUNT 3.56 MIL/MM3 (4.00-5.30); RED CELL DISTRIBUTION WIDTH 15.3 % (11.6-17.2); WHITE BLOOD COUNT 22.5 TH/MM3 (4.0-11.0)
[2017-06-09 12:00] VITALS: BP 193/79; PULSE 79; RESP 17; TEMP 97.3; O2SAT 97
--- NOTE | 2017-06-09 13:33 | HHI.PR ---
cc: Navarro Arellano MD Subjective Subjective Notes DAILY PROGRESS NOTE FOR SURGICAL ATTENDING, DR. NAVARRO ARELLANO Feeling better today but still a little sluggish Walked in hallways this morning Son at bedside Objective Vitals/I&O Vital Signs Date Time Temp Pulse Resp B/P (MAP) Pulse Ox O2 Delivery O2 Flow Rate FiO2 06/09/17 12:00 97.3 79 17 193/79 (117) 97 06/09/17 08:55 21 06/07/17 10:09 Nasal Cannula 2.00 Labs Laboratory Tests Test 06/09/17 10:24 White Blood Count 22.5 Red Blood Count 3.56 Hemoglobin 10.1 Hematocrit 30.7 Mean Corpuscular Volume 86.2 Mean Corpuscular Hemoglobin 28.4 Mean Corpuscular Hemoglobin Concent 32.9 Red Cell Distribution Width 15.3 Platelet Count 410 Mean Platelet Volume 8.6 Neutrophils (%) (Auto) 89.0 Lymphocytes (%) (Auto) 5.1 Monocytes (%) (Auto) 5.1 Eosinophils (%) (Auto) 0.7 Basophils (%) (Auto) 0.1 Neutrophils # (Auto) 20.0 Lymphocytes # (Auto) 1.2 Monocytes # (Auto) 1.2 Eosinophils # (Auto) 0.2 Basophils # (Auto) 0.0 CBC Comment DIFF FINAL Differential Comment Date/Time Source Procedure Growth Status 06/08/17 15:00 Abscess Abdomen Gram Stain - Final Resulted 06/08/17 15:00 Abscess Abdomen Wound Culture Pending Resulted Radiology Last Impressions Abdomen/Pelvis CT 06/08/17 0000 Signed Impressions: Service Date/Time: Thursday, June 08, 2017 13:10 - CONCLUSION: 1. 7.3 x 3.1 cm abscess within the left hemipelvis. This fluid collection would be very difficult to drain percutaneously secondary to the superior gluteal artery location. We could entertain a transrectal route for abscess drainage catheter placement if clinically warranted. I spoke with Dr.Dr Arellano. 2. Ileus type pattern. 3. Tiny bilateral pleural effusions with associated passive atelectasis. 4. Fluid and air tracking along the anterior abdominal wall wound. Presumably this is communicating with the overlying skin surface. It does not have the typical appearance of an abscess. 5. Pneumoperitoneum consistent with the postoperative state. Trey Davis Jr., MD Chest X-Ray 06/07/17 0000 Signed Impressions: Service Date/Time: Wednesday, June 07, 2017 16:16 - CONCLUSION: 1. Small left-sided pleural effusion. 2. Possible small 1 cm nodule laterally in the right perihilar distribution. Lungs are otherwise clear. Kirill Oconnell MD Abdomen X-Ray 06/02/17 0600 Signed Impressions: Service Date/Time: Friday, June 02, 2017 05:25 - CONCLUSION: There is a single of dilated segment of small bowel in the left lower quadrant. However, there is less dilatation compared to yesterday's CT examination. Consider continued followup to resolution. Carlos Bassett MD Small Bowel X-Ray 06/02/17 0000 Signed Impressions: Service Date/Time: Friday, June 02, 2017 10:22 - CONCLUSION: Small bowel obstruction mid to distal small bowel left of midline. Terry Ladd MD FACR Cardiovascular: Regular Lungs: Clear Abdomen: Other (midline incision--- lower part open with wet to dry packing-- removed-- not residual exudate or fluid in wound; abdomen mildly distended ) Narrative Exam Mild BLE edema A/P Problem List: (1) Wound infection after surgery ICD Codes: T81.4XXA - Infection following a procedure, initial encounter Status: Acute (2) Pelvic abscess in female ICD Codes: N73.9 - Female pelvic inflammatory disease, unspecified Status: Acute (3) S/P small bowel resection ICD Codes: Z90.49 - Acquired absence of other specified parts of digestive tract Status: Acute (4) Status post exploratory laparotomy ICD Codes: Z98.890 - Other specified postprocedural states Status: Acute (5) Small bowel obstruction ICD Codes: K56.609 - Unspecified intestinal obstruction, unspecified as to partial versus complete obstruction Status: Acute (6) Potassium serum decreased ICD Codes: E87.6 - Hypokalemia Status: Acute (7) 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 NAVARRO ARELLANO Doing much better today Tolerating some by mouth Upon ambulating Dressing change earlier May benefit from VAC application later in the week Just antibiotics when cultures return I suspect the small pelvic abscess may resolve on antibiotic therapy alone I agree with above assessment and plan. The exam, history, and the medical decision-making described in the above note were completed with the assistance of the mid-level provider. I reviewed and agree with the findings presented. I attest that I had a [id number] encounter with the patient on the same day, and personally performed and documented my assessment and findings in the medical record. The following services were provided during this hospital visit: Chart data review, vital sign assessments/reviewing monitor data Review of consultations notes if present. Medication orders/review and/or management Ordering and/or reviewing lab tests Ordering and/or interpreting/reviewing x-rays and/or diagnostic studies Care of the patient and discussion of the patient with the care team Documentation time To help prompt me to consider important information that might be impacting today's encounter and assessment, information from prior notes written by myself or my colleagues may have been "brought forward/copy and pasted" into today's note. I agree with above assessment and plan. The exam, history, and the medical decision-making described in the above note were completed with the assistance of the mid-level provider. I reviewed and agree with the findings presented. I attest that I had a [id number] encounter with the patient on the same day, and personally performed and documented my assessment and findings in the medical record. The following services were provided during this hospital visit: Chart data review, vital sign assessments/reviewing monitor data Review of consultations notes if present. Medication orders/review and/or management Ordering and/or reviewing lab tests Ordering and/or interpreting/reviewing x-rays and/or diagnostic studies Care of the patient and discussion of the patient with the care team Documentation time To help prompt me to consider important information that might be impacting today's encounter and assessment, information from prior notes written by myself or my colleagues may have been "brought forward/copy and pasted" into today's note. Problem Qualifiers (1) Wound infection after surgery: Qualified Codes: T81.4XXD - Infection following a procedure, subsequent encounter Sydnie Kumar Jun 09, 2017 13:33 Navarro Arellano MD Jun 09, 2017 18:24
--- NOTE | 2017-06-09 14:44 | HHI.PR ---
Subjective Remarks 87F who had increased abdominal pain and bloating yesterday. Today she is up walking again, still NPO, less abdominal pain. Objective Vitals Vital Signs Date Time Temp Pulse Resp B/P (MAP) Pulse Ox O2 Delivery O2 Flow Rate FiO2 06/09/17 12:00 97.3 79 17 193/79 (117) 97 06/09/17 08:55 94 21 06/09/17 08:00 97.8 81 17 162/69 (100) 96 06/09/17 00:00 98.9 100 14 149/72 (97) 93 06/08/17 20:00 99.4 101 14 157/77 (103) 92 06/08/17 16:00 97.5 82 18 145/75 (98) 95 I/O 06/08/17 06/08/17 06/08/17 06/09/17 06/09/17 06/09/17 07:00 15:00 23:00 07:00 15:00 23:00 Intake Total 120 ml 220 ml 250 ml Balance 120 ml 220 ml 250 ml Intake Oral 120 ml 120 ml 0 ml IV Total 100 ml 250 ml # Voids 5 3 4 # Bowel Movements 4 1 Result Diagram: 06/09/17 1024 06/05/17 0743 Objective Remarks GENERAL: Well-nourished, well-developed patient, appears younger than stated age. SKIN: Warm and dry. HEAD: Normocephalic. EYES: No scleral icterus. No injection or drainage. NECK: Supple, trachea midline. No JVD or lymphadenopathy. CARDIOVASCULAR: Regular rate and rhythm without murmurs, gallops, or rubs. RESPIRATORY: Breath sounds equal bilaterally. No accessory muscle use. GASTROINTESTINAL: Abdomen mildly distended, tender to palpation, hypoactive bowel sounds (improved compared to yesterday afternoon) EXTREMITIES: No cyanosis, or edema. NEUROLOGICAL: Awake, alert, and oriented x 3. Non-focal. Procedures 1. Diagnostic laparoscopy, lysis of adhesions converted to open with lysis of massive adhesions greater than 1-1/2 hours. 2. Small bowel resection of stenotic mid-jejunum. A/P Problem List: (1) Small bowel obstruction ICD Code: K56.609 - Unspecified intestinal obstruction, unspecified as to partial versus complete obstruction Status: Acute Assessment and Plan SBO following lysis of adhesions Surgery converted to open and small bowel resection of stenotic mid-jejunum Recurrence of pain yesterday, slowly improving today, continue clear liquids Appreciate Surgery following Leukocytosis Abscess in area of right corona-pelvis, difficult to reach according to radiology report Surgery and Radiology had a discussion about treatment options, will look for plan Hypokalemia Resolved DVT Prophylaxis SCD hose Discharge Planning Home healthcare will be needed Lazaro Hopkins MD Jun 09, 2017 14:44
[2017-06-09] MEDS: SODIUM CHLOR 0.9% 1000 ML INJ 1,000 ML IV SCH (15:04)
[2017-06-09 16:00] VITALS: BP 197/83; PULSE 83; RESP 17; TEMP 97.7; O2SAT 98
[2017-06-09] MEDS: ENOXAPARIN SODIUM 40 MG/0.4 ML SYRINGE SQ SCH (17:07)
[2017-06-09 20:00] VITALS: BP 164/74; PULSE 79; RESP 20; TEMP 98.8; O2SAT 94
[2017-06-10] VITALS: BP 148/77; PULSE 82; RESP 18; TEMP 99; O2SAT 95
[2017-06-10] MEDS: oxyCODONE/ACETAMINOPHEN 5 MG/325 MG TAB PO PRN ×4 (00:41→20:26)
[2017-06-10] MEDS: LEVOFLOXACIN 750 MG PREMIX INJ 150 ML IV SCH ×2 (00:41→20:28)
[2017-06-10] MEDS: metroNIDAZOLE 500 MG INJ 100 ML IV SCH ×3 (04:43→20:28)
[2017-06-10 06:21] LABS: AUTOMATED NEUTROPHIL # 14.5 TH/MM3 (1.8-7.7); BASOPHIL # 0.1 TH/MM3 (0-0.2); BASOPHIL % 0.8 % (0.0-2.0); EOSINOPHIL # 0.3 TH/MM3 (0-0.4); EOSINOPHIL % 1.6 % (0.0-4.0); HEMATOCRIT 27.6 % (35.0-46.0); HEMOGLOBIN 9.3 GM/DL (11.6-15.3); MEAN CELL VOLUME 85.4 FL (80.0-100.0); MEAN CORPUSCULAR HEMOGLOBIN 28.7 PG (27.0-34.0); MEAN CORPUSCULAR HGB CONC 33.6 % (32.0-36.0); MEAN PLATELET VOLUME 8.7 FL (7.0-11.0); MONO % 6.9 % (0.0-8.0); MONOCYTE # 1.2 TH/MM3 (0-0.9); NEUT % 84.7 % (16.0-70.0); PLATELET COUNT 412 TH/MM3 (150-450); RED BLOOD COUNT 3.23 MIL/MM3 (4.00-5.30); RED CELL DISTRIBUTION WIDTH 15.4 % (11.6-17.2); WHITE BLOOD COUNT 17.1 TH/MM3 (4.0-11.0)
[2017-06-10 08:00] VITALS: BP 177/79; PULSE 84; RESP 19; TEMP 98.2; O2SAT 95
[2017-06-10] MEDS: MUPIROCIN 2% OINT 1 APPLIC/GM SYR EACH NARE SCH ×2 (08:17→20:28)
[2017-06-10] MEDS: BISACODYL 10 MG SUPP RECTAL SCH (08:18)
[2017-06-10 08:24] LABS: BANDS 9 % (0-6); LYMPHOCYTES 5 % (9-44); MONOCYTES 5 % (0-8); NEUTROPHIL # MANUAL DIFF 15.2 TH/MM3 (1.8-7.7); POLYS (SEG NEUTROPHILS) 80 % (16-70)
[2017-06-10 08:25] LABS: TOXIC GRANULATION 1+ (NORMAL)
[2017-06-10 12:00] VITALS: BP 156/67; PULSE 88; RESP 20; TEMP 97.7; O2SAT 95
[2017-06-10] MEDS: ONDANSETRON HCL 4 MG/2 ML VIAL IV PUSH PRN (13:16)
--- NOTE | 2017-06-10 14:23 | HHI.PR ---
Subjective Remarks Patient continues to ambulate the halls at least twice daily. Her son is a good source of encouragement. Her diet is being slowly advanced and she is tolerating it well without any abdominal pain or nausea today. Objective Vitals Vital Signs Date Time Temp Pulse Resp B/P (MAP) Pulse Ox O2 Delivery O2 Flow Rate FiO2 06/10/17 12:00 97.7 88 20 156/67 (96) 95 06/10/17 08:00 98.2 84 19 177/79 (111) 95 06/10/17 00:00 99.0 82 18 148/77 (100) 95 06/09/17 20:00 98.8 79 20 164/74 (104) 94 06/09/17 16:00 97.7 83 17 197/83 (121) 98 I/O 06/09/17 06/09/17 06/09/17 06/10/17 06/10/17 06/10/17 07:00 15:00 23:00 07:00 15:00 23:00 Intake Total 250 ml 650 ml 150 ml 120 ml Balance 250 ml 650 ml 150 ml 120 ml Intake Oral 0 ml 450 ml 120 ml IV Total 250 ml 200 ml 150 ml # Voids 4 4 2 # Bowel Movements 1 1 0 Result Diagram: 06/10/17 0556 Objective Remarks GENERAL: Well-nourished, well-developed patient, appears younger than stated age. SKIN: Warm and dry. HEAD: Normocephalic. EYES: No scleral icterus. No injection or drainage. NECK: Supple, trachea midline. No JVD or lymphadenopathy. CARDIOVASCULAR: Regular rate and rhythm without murmurs, gallops, or rubs. RESPIRATORY: Breath sounds equal bilaterally. No accessory muscle use. GASTROINTESTINAL: Abdomen mildly distended, tender to palpation, would vac placed over 15cm open surgical wound in lower abdomen EXTREMITIES: No cyanosis, or edema. NEUROLOGICAL: Awake, alert, and oriented x 3. Non-focal. Procedures 1. Diagnostic laparoscopy, lysis of adhesions converted to open with lysis of massive adhesions greater than 1-1/2 hours. 2. Small bowel resection of stenotic mid-jejunum. A/P Problem List: (1) Small bowel obstruction ICD Code: K56.609 - Unspecified intestinal obstruction, unspecified as to partial versus complete obstruction Status: Acute Assessment and Plan SBO following lysis of adhesions Surgery converted to open and small bowel resection of stenotic mid-jejunum Slowly advancing diet Wound Vac placed over surgical wound today Appreciate Surgery following Leukocytosis Abscess in area of right corona-pelvis, difficult to reach according to radiology report Plan now is to treat with IV antibiotics while addressing external wound with wound vac Hypokalemia Resolved DVT Prophylaxis SCD hose Discharge Planning Home healthcare will be needed Lazaro Hopkins MD Jun 10, 2017 14:23
[2017-06-10] MEDS: SODIUM CHLOR 0.9% 1000 ML INJ 1,000 ML IV SCH (14:53)
--- NOTE | 2017-06-10 14:55 | HHI.PR ---
cc: Navarro Arellano MD Subjective Subjective Notes DAILY PROGRESS NOTE FOR SURGICAL ATTENDING, DR. NAVARRO ARELLANO Resting in bed [place] a little nauseous after lunch but thankful Rochelle brought her a sheree yogesh which seems to have resolved the issues Objective Vitals/I&O Vital Signs Date Time Temp Pulse Resp B/P (MAP) Pulse Ox O2 Delivery O2 Flow Rate FiO2 06/10/17 12:00 97.7 88 20 156/67 (96) 95 06/09/17 08:55 21 06/07/17 10:09 Nasal Cannula 2.00 Labs Laboratory Tests Test 06/10/17 05:56 White Blood Count 17.1 Red Blood Count 3.23 Hemoglobin 9.3 Hematocrit 27.6 Mean Corpuscular Volume 85.4 Mean Corpuscular Hemoglobin 28.7 Mean Corpuscular Hemoglobin Concent 33.6 Red Cell Distribution Width 15.4 Platelet Count 412 Mean Platelet Volume 8.7 Neutrophils (%) (Auto) 84.7 Lymphocytes (%) (Auto) 6.0 Monocytes (%) (Auto) 6.9 Eosinophils (%) (Auto) 1.6 Basophils (%) (Auto) 0.8 Neutrophils # (Auto) 14.5 Lymphocytes # (Auto) 1.0 Monocytes # (Auto) 1.2 Eosinophils # (Auto) 0.3 Basophils # (Auto) 0.1 CBC Comment AUTO DIFF Differential Total Cells Counted 100 Neutrophils % (Manual) 80 Band Neutrophils % 9 Lymphocytes % 5 Monocytes % 5 Eosinophils % 1 Neutrophils # (Manual) 15.2 Differential Comment FINAL DIFF MANUAL Toxic Granulation 1+ Platelet Estimate NORMAL Platelet Morphology Comment NORMAL Red Cell Morphology Comment NORMAL Date/Time Source Procedure Growth Status 06/08/17 15:00 Abscess Abdomen Gram Stain - Final Complete 06/08/17 15:00 Wound Culture - Final Group D Enterococcus Complete Radiology Last Impressions Abdomen/Pelvis CT 06/08/17 0000 Signed Impressions: Service Date/Time: Thursday, June 08, 2017 13:10 - CONCLUSION: 1. 7.3 x 3.1 cm abscess within the left hemipelvis. This fluid collection would be very difficult to drain percutaneously secondary to the superior gluteal artery location. We could entertain a transrectal route for abscess drainage catheter placement if clinically warranted. I spoke with Dr.Dr Arellano. 2. Ileus type pattern. 3. Tiny bilateral pleural effusions with associated passive atelectasis. 4. Fluid and air tracking along the anterior abdominal wall wound. Presumably this is communicating with the overlying skin surface. It does not have the typical appearance of an abscess. 5. Pneumoperitoneum consistent with the postoperative state. Trey Davis Jr., MD Chest X-Ray 06/07/17 0000 Signed Impressions: Service Date/Time: Wednesday, June 07, 2017 16:16 - CONCLUSION: 1. Small left-sided pleural effusion. 2. Possible small 1 cm nodule laterally in the right perihilar distribution. Lungs are otherwise clear. Kirill Oconnell MD Abdomen X-Ray 06/02/17 0600 Signed Impressions: Service Date/Time: Friday, June 02, 2017 05:25 - CONCLUSION: There is a single of dilated segment of small bowel in the left lower quadrant. However, there is less dilatation compared to yesterday's CT examination. Consider continued followup to resolution. Carlos Bassett MD Small Bowel X-Ray 06/02/17 0000 Signed Impressions: Service Date/Time: Wednesday, June 02, 2017 10:22 - CONCLUSION: Small bowel obstruction mid to distal small bowel left of midline. Terry Ladd MD FACR Cardiovascular: Regular Lungs: Clear Abdomen: Other (open midline incision--- three additional philip removed; Wound vac placed ) Extremities: No edema Narrative Exam Very mild BLE edema Wound Wound : Wound Location: Abdomen Appearance: Clean & Dry Dressing: VAC (applied today) Procedure The midline wound dressing was changed A VAC appliance was applied measuring approximately 15 x 3 cm in size The patient tolerated well A/P Problem List: (1) Wound infection after surgery ICD Codes: T81.4XXA - Infection following a procedure, initial encounter Status: Acute (2) Pelvic abscess in female ICD Codes: N73.9 - Female pelvic inflammatory disease, unspecified Status: Acute (3) S/P small bowel resection ICD Codes: Z90.49 - Acquired absence of other specified parts of digestive tract Status: Acute (4) Status post exploratory laparotomy ICD Codes: Z98.890 - Other specified postprocedural states Status: Acute (5) Small bowel obstruction ICD Codes: K56.609 - Unspecified intestinal obstruction, unspecified as to partial versus complete obstruction Status: Acute (6) Potassium serum decreased ICD Codes: E87.6 - Hypokalemia Status: Acute (7) Intra-abdominal adhesions ICD Codes: K66.0 - Peritoneal adhesions (postprocedural) (postinfection) Status: Chronic Assessment and Plan 87 year old female with SBO secondary to massive adhesions; POD8 dx lap converted to ex lap; resection of mid jejunum -Plan to place Wound Vac today--- change Wednesday, and Wednesday at bedside -Regular soft diet--- encouraged smaller more frequent meals -OOB and mobilize -Pain control Attending Statement NOTE FOR SURGICAL ATTENDING, DR. NAVARRO ARELLANO Patient up and ambulating Passing flatus tolerating some by mouth Spoke to son today We applied the VAC dressing to the midline wound today I agree with above assessment and plan. The exam, history, and the medical decision-making described in the above note were completed with the assistance of the mid-level provider. I reviewed and agree with the findings presented. I attest that I had a [id number] encounter with the patient on the same day, and personally performed and documented my assessment and findings in the medical record. The following services were provided during this hospital visit: Chart data review, vital sign assessments/reviewing monitor data Review of consultations notes if present. Medication orders/review and/or management Ordering and/or reviewing lab tests Ordering and/or interpreting/reviewing x-rays and/or diagnostic studies Care of the patient and discussion of the patient with the care team Documentation time To help prompt me to consider important information that might be impacting today's encounter and assessment, information from prior notes written by myself or my colleagues may have been "brought forward/copy and pasted" into today's note. Problem Qualifiers (1) Wound infection after surgery: Qualified Codes: T81.4XXD - Infection following a procedure, subsequent encounter Sydnie Kumar/First Vaughn LEON Jun 10, 2017 14:55 Navarro Arellano MD Jun 10, 2017 15:36
[2017-06-10 16:00] VITALS: BP 171/77; PULSE 86; RESP 20; TEMP 98.2; O2SAT 98
[2017-06-10] MEDS: ENOXAPARIN SODIUM 40 MG/0.4 ML SYRINGE SQ SCH (17:55)
[2017-06-10 20:00] VITALS: BP 182/85; PULSE 98; RESP 20; TEMP 98.4; O2SAT 93
[2017-06-10] MEDS: cloNIDine HCL 0.1 MG TAB PO PRN (20:57)
[2017-06-11] VITALS: BP 140/69; PULSE 74; RESP 18; TEMP 96.4; O2SAT 93
[2017-06-11] MEDS: metroNIDAZOLE 500 MG INJ 100 ML IV SCH ×3 (04:00→20:53)
[2017-06-11] MEDS: oxyCODONE/ACETAMINOPHEN 5 MG/325 MG TAB PO PRN ×3 (06:40→20:50)
[2017-06-11 08:00] VITALS: BP 155/70; PULSE 70; RESP 20; TEMP 98.1; O2SAT 95
[2017-06-11] MEDS: MUPIROCIN 2% OINT 1 APPLIC/GM SYR EACH NARE SCH ×2 (08:16→20:50)
[2017-06-11] MEDS: BISACODYL 10 MG SUPP RECTAL SCH (08:16)
[2017-06-11 12:00] VITALS: BP 127/60; PULSE 74; RESP 19; TEMP 97.8; O2SAT 98
--- NOTE | 2017-06-11 15:28 | HHI.PR ---
Subjective Remarks Patient is having a good day today tolerating solid food again ambulating the halls. She states that the wound VAC makes her abdomen feels better. Objective Vitals Vital Signs Date Time Temp Pulse Resp B/P (MAP) Pulse Ox O2 Delivery O2 Flow Rate FiO2 06/11/17 12:00 97.8 74 19 127/60 (82) 98 06/11/17 08:00 98.1 70 20 155/70 (98) 95 06/11/17 00:00 96.4 74 18 140/69 (92) 93 06/10/17 20:00 98.4 98 20 182/85 (117) 93 06/10/17 16:00 98.2 86 20 171/77 (108) 98 I/O 06/10/17 06/10/17 06/10/17 06/11/17 06/11/17 06/11/17 06:59 14:59 22:59 06:59 14:59 22:59 Intake Total 150 ml 120 ml 750 ml 120 ml Output Total 825 ml Balance 150 ml 120 ml -75 ml 120 ml Intake Oral 120 ml 750 ml 120 ml IV Total 150 ml Output Urine Total 800 ml Drainage Total 25 ml # Voids 2 2 # Bowel Movements 0 1 1 Result Diagram: 06/10/17 0556 Objective Remarks GENERAL: Well-nourished, well-developed patient, appears younger than stated age. SKIN: Warm and dry. HEAD: Normocephalic. EYES: No scleral icterus. No injection or drainage. NECK: Supple, trachea midline. No JVD or lymphadenopathy. CARDIOVASCULAR: Regular rate and rhythm without murmurs, gallops, or rubs. RESPIRATORY: Breath sounds equal bilaterally. No accessory muscle use. GASTROINTESTINAL: Abdomen mildly distended, tender to palpation, would vac in place on lower abdomen EXTREMITIES: No cyanosis, or edema. NEUROLOGICAL: Awake, alert, and oriented x 3. Non-focal. Procedures 1. Diagnostic laparoscopy, lysis of adhesions converted to open with lysis of massive adhesions greater than 1-1/2 hours. 2. Small bowel resection of stenotic mid-jejunum. A/P Problem List: (1) Small bowel obstruction ICD Code: K56.609 - Unspecified intestinal obstruction, unspecified as to partial versus complete obstruction Status: Acute Assessment and Plan SBO following lysis of adhesions Surgery converted to open and small bowel resection of stenotic mid-jejunum Tolerating solid food Wound Vac in place over lower abdomen Appreciate Surgery following Leukocytosis Abscess in area of right corona-pelvis on CT Continue IV Levaquin Hypokalemia Resolved DVT Prophylaxis SCD hose Discharge Planning Home healthcare will be needed Lazaro Hopkins MD Jun 11, 2017 15:28
--- NOTE | 2017-06-11 15:38 | HHI.PR ---
cc: Navarro Arellano MD Subjective Subjective Notes DAILY PROGRESS NOTE FOR SURGICAL ATTENDING, DR. NAVARRO ARELLANO Resting in bed Did a lot of walking this morning now just resting for a while Objective Vitals/I&O Vital Signs Date Time Temp Pulse Resp B/P (MAP) Pulse Ox O2 Delivery O2 Flow Rate FiO2 06/11/17 12:00 97.8 74 19 127/60 (82) 98 06/09/17 08:55 21 06/07/17 10:09 Nasal Cannula 2.00 Labs Date/Time Source Procedure Growth Status 06/08/17 15:00 Abscess Abdomen Gram Stain - Final Complete 06/08/17 15:00 Wound Culture - Final Group D Enterococcus Complete Radiology Last Impressions Abdomen/Pelvis CT 06/08/17 0000 Signed Impressions: Service Date/Time: Thursday, June 08, 2017 13:10 - CONCLUSION: 1. 7.3 x 3.1 cm abscess within the left hemipelvis. This fluid collection would be very difficult to drain percutaneously secondary to the superior gluteal artery location. We could entertain a transrectal route for abscess drainage catheter placement if clinically warranted. I spoke with Dr.Dr Arellano. 2. Ileus type pattern. 3. Tiny bilateral pleural effusions with associated passive atelectasis. 4. Fluid and air tracking along the anterior abdominal wall wound. Presumably this is communicating with the overlying skin surface. It does not have the typical appearance of an abscess. 5. Pneumoperitoneum consistent with the postoperative state. Trey Davis Jr., MD Chest X-Ray 06/07/17 0000 Signed Impressions: Service Date/Time: Wednesday, June 07, 2017 16:16 - CONCLUSION: 1. Small left-sided pleural effusion. 2. Possible small 1 cm nodule laterally in the right perihilar distribution. Lungs are otherwise clear. Kirill Oconnell MD Abdomen X-Ray 06/02/17 0600 Signed Impressions: Service Date/Time: Friday, June 02, 2017 05:25 - CONCLUSION: There is a single of dilated segment of small bowel in the left lower quadrant. However, there is less dilatation compared to yesterday's CT examination. Consider continued followup to resolution. Carlos Bassett MD Small Bowel X-Ray 06/02/17 0000 Signed Impressions: Service Date/Time: Friday, June 02, 2017 10:22 - CONCLUSION: Small bowel obstruction mid to distal small bowel left of midline. Terry Ladd MD FACR Cardiovascular: Regular Lungs: Clear Abdomen: Other (midline incision with Wound Vac in place--- good seal ) Narrative Exam BLE edema A/P Problem List: (1) Wound infection after surgery ICD Codes: T81.4XXA - Infection following a procedure, initial encounter Status: Acute (2) Pelvic abscess in female ICD Codes: N73.9 - Female pelvic inflammatory disease, unspecified Status: Acute (3) S/P small bowel resection ICD Codes: Z90.49 - Acquired absence of other specified parts of digestive tract Status: Acute (4) Status post exploratory laparotomy ICD Codes: Z98.890 - Other specified postprocedural states Status: Acute Assessment and Plan 87 year old female with SBO secondary to massive adhesions; s/p dx lap converted to ex lap; resection of mid jejunum -Continue Wound Vac--- plan to change tomorrow -Regular soft diet--- encouraged smaller more frequent meals -OOB and mobilize -Pain control -Continue IV antibiotics Attending Statement NOTE FOR SURGICAL ATTENDING, DR. NAVARRO ARELLANO Patient developed a wound infection replace the VAC yesterday Back his functional Her pain is improved her white count is down she is feeling better she is in better spirits Plan to change the VAC tomorrow on Wednesday. Continue antibiotic therapy Awaiting final culture results I agree with above assessment and plan. The exam, history, and the medical decision-making described in the above note were completed with the assistance of the mid-level provider. I reviewed and agree with the findings presented. I attest that I had a eweh-[id number] encounter with the patient on the same day, and personally performed and documented my assessment and findings in the medical record. The following services were provided during this hospital visit: Chart data review, vital sign assessments/reviewing monitor data Review of consultations notes if present. Medication orders/review and/or management Ordering and/or reviewing lab tests Ordering and/or interpreting/reviewing x-rays and/or diagnostic studies Care of the patient and discussion of the patient with the care team Documentation time To help prompt me to consider important information that might be impacting today's encounter and assessment, information from prior notes written by myself or my colleagues may have been "brought forward/copy and pasted" into today's note. Problem Qualifiers (1) Wound infection after surgery: Qualified Codes: T81.4XXD - Infection following a procedure, subsequent encounter Sydnie Kumar/First Vaughn LEON Jun 11, 2017 15:38 Navarro Arellano MD Jun 11, 2017 17:09
[2017-06-11 16:00] VITALS: BP 102/51; PULSE 77; RESP 20; TEMP 97.4; O2SAT 95
[2017-06-11] MEDS: ENOXAPARIN SODIUM 40 MG/0.4 ML SYRINGE SQ SCH (18:00)
[2017-06-11 20:00] VITALS: BP 111/58; PULSE 77; RESP 17; TEMP 98.6; O2SAT 94
[2017-06-11] MEDS: LEVOFLOXACIN 750 MG PREMIX INJ 150 ML IV SCH (20:53)
[2017-06-12] VITALS: BP 132/67; PULSE 74; RESP 17; TEMP 97.9; O2SAT 95
[2017-06-12] MEDS: oxyCODONE/ACETAMINOPHEN 5 MG/325 MG TAB PO PRN ×5 (00:21→22:04)
[2017-06-12] MEDS: metroNIDAZOLE 500 MG INJ 100 ML IV SCH ×3 (05:38→22:01)
[2017-06-12 07:56] LABS: AUTOMATED NEUTROPHIL # 13.4 TH/MM3 (1.8-7.7); BASOPHIL # 0.1 TH/MM3 (0-0.2); BASOPHIL % 0.4 % (0.0-2.0); EOSINOPHIL # 0.2 TH/MM3 (0-0.4); HEMATOCRIT 27.4 % (35.0-46.0); HEMOGLOBIN 9.2 GM/DL (11.6-15.3); LYMPH % 8.3 % (9.0-44.0); LYMPHOCYTE # 1.4 TH/MM3 (1.0-4.8); MEAN CELL VOLUME 85.7 FL (80.0-100.0); MEAN CORPUSCULAR HEMOGLOBIN 28.7 PG (27.0-34.0); MEAN CORPUSCULAR HGB CONC 33.5 % (32.0-36.0); MEAN PLATELET VOLUME 8.4 FL (7.0-11.0); MONO % 9.3 % (0.0-8.0); MONOCYTE # 1.5 TH/MM3 (0-0.9); PLATELET COUNT 427 TH/MM3 (150-450); RED CELL DISTRIBUTION WIDTH 15.4 % (11.6-17.2); WHITE BLOOD COUNT 16.6 TH/MM3 (4.0-11.0)
[2017-06-12 08:00] VITALS: BP 180/74; PULSE 96; RESP 17; TEMP 96.7; O2SAT 96
[2017-06-12 08:27] LABS: BICARBONATE 25.1 MEQ/L (21.0-32.0); CALCIUM 7.4 MG/DL (8.5-10.1); CREATININE 0.69 MG/DL (0.50-1.00)
[2017-06-12] MEDS: cloNIDine HCL 0.1 MG TAB PO PRN (08:33)
[2017-06-12] MEDS: MUPIROCIN 2% OINT 1 APPLIC/GM SYR EACH NARE SCH (08:33)
[2017-06-12] MEDS: BISACODYL 10 MG SUPP RECTAL SCH (08:33)
[2017-06-12 08:55] LABS: CALCIUM-PROTEIN CORRECTED 8.8 MG/DL (8.5-10.1); TOTAL PROTEIN 4.7 GM/DL (6.4-8.2)
[2017-06-12] MEDS ORDERED: POTASSIUM CHLORIDE 20 MEQ CONTROLLED RELEASE TAB PO ONE (09:30)
--- NOTE | 2017-06-12 10:52 | HHI.PR ---
Subjective Subjective Notes c/o pain but controlled, +bm, no fever Objective Vitals/I&O Vital Signs Date Time Temp Pulse Resp B/P (MAP) Pulse Ox O2 Delivery O2 Flow Rate FiO2 06/12/17 08:00 96.7 96 17 180/74 (109) 96 06/09/17 08:55 21 Labs Laboratory Tests Test 06/12/17 07:14 White Blood Count 16.6 Red Blood Count 3.20 Hemoglobin 9.2 Hematocrit 27.4 Mean Corpuscular Volume 85.7 Mean Corpuscular Hemoglobin 28.7 Mean Corpuscular Hemoglobin Concent 33.5 Red Cell Distribution Width 15.4 Platelet Count 427 Mean Platelet Volume 8.4 Neutrophils (%) (Auto) 81.0 Lymphocytes (%) (Auto) 8.3 Monocytes (%) (Auto) 9.3 Eosinophils (%) (Auto) 1.0 Basophils (%) (Auto) 0.4 Neutrophils # (Auto) 13.4 Lymphocytes # (Auto) 1.4 Monocytes # (Auto) 1.5 Eosinophils # (Auto) 0.2 Basophils # (Auto) 0.1 CBC Comment DIFF FINAL Differential Comment Blood Urea Nitrogen 15 Creatinine 0.69 Random Glucose 114 Total Protein 4.7 Calcium Level 7.4 Sodium Level 142 Potassium Level 2.8 Chloride Level 108 Carbon Dioxide Level 25.1 Anion Gap 9 Estimat Glomerular Filtration Rate 80 Protein Corrected Calcium 8.8 Date/Time Source Procedure Growth Status 06/08/17 15:00 Abscess Abdomen Gram Stain - Final Complete 06/08/17 15:00 Wound Culture - Final Group D Enterococcus Complete Radiology Last Impressions Abdomen/Pelvis CT 06/08/17 0000 Signed Impressions: Service Date/Time: Thursday, June 08, 2017 13:10 - CONCLUSION: 1. 7.3 x 3.1 cm abscess within the left hemipelvis. This fluid collection would be very difficult to drain percutaneously secondary to the superior gluteal artery location. We could entertain a transrectal route for abscess drainage catheter placement if clinically warranted. I spoke with Dr.Dr Arellano. 2. Ileus type pattern. 3. Tiny bilateral pleural effusions with associated passive atelectasis. 4. Fluid and air tracking along the anterior abdominal wall wound. Presumably this is communicating with the overlying skin surface. It does not have the typical appearance of an abscess. 5. Pneumoperitoneum consistent with the postoperative state. Trey Davis Jr., MD Chest X-Ray 06/07/17 0000 Signed Impressions: Service Date/Time: Wednesday, June 07, 2017 16:16 - CONCLUSION: 1. Small left-sided pleural effusion. 2. Possible small 1 cm nodule laterally in the right perihilar distribution. Lungs are otherwise clear. Kirill Oconnell MD Abdomen X-Ray 06/02/17 0600 Signed Impressions: Service Date/Time: Friday, June 02, 2017 05:25 - CONCLUSION: There is a single of dilated segment of small bowel in the left lower quadrant. However, there is less dilatation compared to yesterday's CT examination. Consider continued followup to resolution. Carlos Bassett MD Small Bowel X-Ray 06/02/17 0000 Signed Impressions: Service Date/Time: Friday, June 02, 2017 10:22 - CONCLUSION: Small bowel obstruction mid to distal small bowel left of midline. Terry Ladd MD FACR Lungs: Clear Abdomen: Other (vac good seal, prox incision cellulitis) A/P Problem List: (1) Wound infection after surgery ICD Codes: T81.4XXA - Infection following a procedure, initial encounter Status: Acute (2) Pelvic abscess in female ICD Codes: N73.9 - Female pelvic inflammatory disease, unspecified Status: Acute (3) S/P small bowel resection ICD Codes: Z90.49 - Acquired absence of other specified parts of digestive tract Status: Acute (4) Status post exploratory laparotomy ICD Codes: Z98.890 - Other specified postprocedural states Status: Acute Assessment and Plan 87 year old female with SBO secondary to massive adhesions; s/p dx lap converted to ex lap; resection of mid jejunum -Continue Wound Vac---change vac today -Regular soft diet -OOB and mobilize -Pain control -Continue IV antibiotics - dressing placed to proximal incision dressing change daily wet to dry - replace K and recheck Problem Qualifiers (1) Wound infection after surgery: Qualified Codes: T81.4XXD - Infection following a procedure, subsequent encounter Niko Herr MD Jun 12, 2017 10:52
--- NOTE | 2017-06-12 11:26 | HHI.PR ---
Subjective Remarks Pt seen and examined. AFVSS. No acute events overnight. Son is present in the room. Patient reports she is feeling about the same as prior exams. Endorses some abdominal tenderness. No nausea or vomiting. She hasn't had a BM in two days but is passing flatus. Tolerating PO and ambulating. Reports some drainage above wound vac today that was packed by Dr. Herr. Objective Vitals Vital Signs Date Time Temp Pulse Resp B/P (MAP) Pulse Ox O2 Delivery O2 Flow Rate FiO2 06/12/17 08:00 96.7 96 17 180/74 (109) 96 06/12/17 00:00 97.9 74 17 132/67 (88) 95 06/11/17 20:00 98.6 77 17 111/58 (75) 94 06/11/17 16:00 97.4 77 20 102/51 (68) 95 06/11/17 12:00 97.8 74 19 127/60 (82) 98 I/O 06/11/17 06/11/17 06/11/17 06/12/17 06/12/17 06/12/17 07:00 15:00 23:00 07:00 15:00 23:00 Intake Total 120 ml 480 ml 724 ml Output Total 4555 ml Balance 120 ml -4555 ml 480 ml 724 ml Intake Oral 120 ml 480 ml IV Total 724 ml Output Urine Total 4500 ml Drainage Total 55 ml # Voids 2 6 # Bowel Movements 1 0 Result Diagram: 06/12/1771306/12/17 0714 Objective Remarks GENERAL: WN, WD elderly female laying in bed in NAD. SKIN: Warm and dry. HEENT: Pupils equal and round. MMM. NECK: Supple no tender LAD or JVD. HEART: RRR no m/r/g. LUNGS: CTAB without wheezes or crackles. ABDOMEN: +BS, slightly distended with mild diffuse tenderness. Midline surgical incision with wound vac in place. EXTREMITIES: No LE edema or calf tenderness. NEURO: Awake and alert. Nonfocal. PSYCH: Appropriate mood and affect. Procedures 1. Diagnostic laparoscopy, lysis of adhesions converted to open with lysis of massive adhesions greater than 1-1/2 hours. 2. Small bowel resection of stenotic mid-jejunum. A/P Problem List: (1) Small bowel obstruction ICD Code: K56.609 - Unspecified intestinal obstruction, unspecified as to partial versus complete obstruction Status: Acute (2) Hypokalemia ICD Code: E87.6 - Hypokalemia Assessment and Plan SBO following lysis of adhesions Surgery converted to open and small bowel resection of stenotic mid-jejunum Tolerating regular diet Wound Vac in place over lower abdomen Appreciate Surgery following Leukocytosis Downtrending Abscess in area of right corona-pelvis on CT Continue IV Levaquin and Flagyl Hypokalemia Repleted with 40 MEQ KCL Monitor electrolytes Check Mg in AM labs DVT Prophylaxis Lovenox 40 mg SQ Q24 Discharge Planning Patient requesting SNF on discharge Jesusita Martino MD Jun 12, 2017 11:26
[2017-06-12 12:00] VITALS: BP 130/63; PULSE 67; RESP 18; TEMP 97.6; O2SAT 97
[2017-06-12 16:00] VITALS: BP 135/63; PULSE 75; RESP 18; TEMP 97.8; O2SAT 97
[2017-06-12] MEDS: ENOXAPARIN SODIUM 40 MG/0.4 ML SYRINGE SQ SCH (18:12)
[2017-06-12 20:00] VITALS: BP 138/67; PULSE 98; RESP 17; TEMP 96.6; O2SAT 94
[2017-06-12] MEDS: LEVOFLOXACIN 750 MG PREMIX INJ 150 ML IV SCH (22:01)
[2017-06-13] VITALS: BP 118/59; PULSE 81; RESP 17; TEMP 99; O2SAT 94
[2017-06-13] MEDS: metroNIDAZOLE 500 MG INJ 100 ML IV SCH ×3 (02:35→20:50)
[2017-06-13 08:00] VITALS: BP 169/75; PULSE 82; RESP 16; TEMP 99.2; O2SAT 95
[2017-06-13 08:42] LABS: AUTOMATED NEUTROPHIL # 11.7 TH/MM3 (1.8-7.7); BASOPHIL # 0.1 TH/MM3 (0-0.2); BASOPHIL % 0.5 % (0.0-2.0); EOSINOPHIL # 0.2 TH/MM3 (0-0.4); EOSINOPHIL % 1.1 % (0.0-4.0); HEMOGLOBIN 9.3 GM/DL (11.6-15.3); LYMPH % 8.3 % (9.0-44.0); LYMPHOCYTE # 1.2 TH/MM3 (1.0-4.8); MEAN CELL VOLUME 86.1 FL (80.0-100.0); MEAN CORPUSCULAR HEMOGLOBIN 28.5 PG (27.0-34.0); MEAN CORPUSCULAR HGB CONC 33.1 % (32.0-36.0); MEAN PLATELET VOLUME 8.3 FL (7.0-11.0); MONO % 8.5 % (0.0-8.0); MONOCYTE # 1.2 TH/MM3 (0-0.9); NEUT % 81.6 % (16.0-70.0); PLATELET COUNT 420 TH/MM3 (150-450); RED BLOOD COUNT 3.25 MIL/MM3 (4.00-5.30); RED CELL DISTRIBUTION WIDTH 15.4 % (11.6-17.2); WHITE BLOOD COUNT 14.4 TH/MM3 (4.0-11.0)
[2017-06-13 08:58] LABS: BICARBONATE 26.6 MEQ/L (21.0-32.0); CALCIUM 7.6 MG/DL (8.5-10.1); CREATININE 0.83 MG/DL (0.50-1.00); MAGNESIUM 1.7 MG/DL (1.5-2.5)
[2017-06-13] MEDS: cloNIDine HCL 0.1 MG TAB PO PRN (09:36)
[2017-06-13] MEDS: BISACODYL 10 MG SUPP RECTAL SCH (09:36)
--- NOTE | 2017-06-13 11:10 | HHI.PR ---
Subjective Subjective Notes Feeling ok. Tolerating diet Objective Vitals/I&O Vital Signs Date Time Temp Pulse Resp B/P (MAP) Pulse Ox O2 Delivery O2 Flow Rate FiO2 06/13/17 08:00 99.2 82 16 169/75 (106) 95 06/09/17 08:55 21 Labs Laboratory Tests Test 06/13/17 06:32 White Blood Count 14.4 Red Blood Count 3.25 Hemoglobin 9.3 Hematocrit 28.0 Mean Corpuscular Volume 86.1 Mean Corpuscular Hemoglobin 28.5 Mean Corpuscular Hemoglobin Concent 33.1 Red Cell Distribution Width 15.4 Platelet Count 420 Mean Platelet Volume 8.3 Neutrophils (%) (Auto) 81.6 Lymphocytes (%) (Auto) 8.3 Monocytes (%) (Auto) 8.5 Eosinophils (%) (Auto) 1.1 Basophils (%) (Auto) 0.5 Neutrophils # (Auto) 11.7 Lymphocytes # (Auto) 1.2 Monocytes # (Auto) 1.2 Eosinophils # (Auto) 0.2 Basophils # (Auto) 0.1 CBC Comment DIFF FINAL Differential Comment Blood Urea Nitrogen 15 Creatinine 0.83 Random Glucose 102 Calcium Level 7.6 Magnesium Level 1.7 Sodium Level 140 Potassium Level 3.2 Chloride Level 106 Carbon Dioxide Level 26.6 Anion Gap 7 Estimat Glomerular Filtration Rate 65 Date/Time Source Procedure Growth Status 06/08/17 15:00 Abscess Abdomen Gram Stain - Final Complete 06/08/17 15:00 Wound Culture - Final Group D Enterococcus Complete Radiology Last Impressions Abdomen/Pelvis CT 06/08/17 0000 Signed Impressions: Service Date/Time: Thursday, June 08, 2017 13:10 - CONCLUSION: 1. 7.3 x 3.1 cm abscess within the left hemipelvis. This fluid collection would be very difficult to drain percutaneously secondary to the superior gluteal artery location. We could entertain a transrectal route for abscess drainage catheter placement if clinically warranted. I spoke with Dr.Dr Arellano. 2. Ileus type pattern. 3. Tiny bilateral pleural effusions with associated passive atelectasis. 4. Fluid and air tracking along the anterior abdominal wall wound. Presumably this is communicating with the overlying skin surface. It does not have the typical appearance of an abscess. 5. Pneumoperitoneum consistent with the postoperative state. Trey Davis Jr., MD Chest X-Ray 06/07/17 0000 Signed Impressions: Service Date/Time: Wednesday, June 07, 2017 16:16 - CONCLUSION: 1. Small left-sided pleural effusion. 2. Possible small 1 cm nodule laterally in the right perihilar distribution. Lungs are otherwise clear. Kirill Oconnell MD Abdomen X-Ray 06/02/17 0600 Signed Impressions: Service Date/Time: Friday, June 02, 2017 05:25 - CONCLUSION: There is a single of dilated segment of small bowel in the left lower quadrant. However, there is less dilatation compared to yesterday's CT examination. Consider continued followup to resolution. Carlos Bassett MD Small Bowel X-Ray 06/02/17 0000 Signed Impressions: Service Date/Time: Friday, June 02, 2017 10:22 - CONCLUSION: Small bowel obstruction mid to distal small bowel left of midline. Terry Ladd MD FACR Abdomen: Non-tender A/P Problem List: (1) Wound infection after surgery ICD Codes: T81.4XXA - Infection following a procedure, initial encounter Status: Acute (2) Pelvic abscess in female ICD Codes: N73.9 - Female pelvic inflammatory disease, unspecified Status: Acute (3) S/P small bowel resection ICD Codes: Z90.49 - Acquired absence of other specified parts of digestive tract Status: Acute (4) Status post exploratory laparotomy ICD Codes: Z98.890 - Other specified postprocedural states Status: Acute (5) Potassium serum decreased ICD Codes: E87.6 - Hypokalemia Status: Acute Assessment and Plan Problem List: (1) Wound infection after surgery ICD Codes: T81.4XXA - Infection following a procedure, initial encounter Status: Acute (2) Pelvic abscess in female ICD Codes: N73.9 - Female pelvic inflammatory disease, unspecified Status: Acute (3) S/P small bowel resection ICD Codes: Z90.49 - Acquired absence of other specified parts of digestive tract Status: Acute (4) Status post exploratory laparotomy ICD Codes: Z98.890 - Other specified postprocedural states Status: Acute Assessment and Plan 87 year old female with SBO secondary to massive adhesions; s/p dx lap converted to ex lap; resection of mid jejunum -K+ still low (3.2); will supplement today and recheck in AM -Continue Wound Vac -Regular soft diet -Pain control -Continue IV antibiotics - dressing placed to proximal incision dressing change daily wet to dry Problem Qualifiers (1) Wound infection after surgery: Qualified Codes: T81.4XXD - Infection following a procedure, subsequent encounter Solo Oreilly MD Jun 13, 2017 11:10
[2017-06-13] MEDS ORDERED: POTASSIUM CHLORIDE 20 MEQ CONTROLLED RELEASE TAB PO ONE (11:15)
[2017-06-13] MEDS ORDERED: POTASSIUM CHLOR 20 MEQ PREMIX 100 ML IV ONE (11:15)
--- NOTE | 2017-06-13 11:17 | HHI.PR ---
Subjective Remarks Pt seen and examined. AFVSS. No acute events overnight. Patient reports she is doing well. Had a small BM today after a suppository. Tolerating PO without N/ V. Pain well-controlled. Denies CP or SOB. Objective Vitals Vital Signs Date Time Temp Pulse Resp B/P (MAP) Pulse Ox O2 Delivery O2 Flow Rate FiO2 06/13/17 08:00 99.2 82 16 169/75 (106) 95 06/13/17 00:00 99.0 81 17 118/59 (78) 94 06/12/17 20:00 96.6 98 17 138/67 (90) 94 06/12/17 16:45 18 06/12/17 16:00 97.8 75 18 135/63 (87) 97 06/12/17 12:00 97.6 67 18 130/63 (85) 97 I/O 06/12/17 06/12/17 06/12/17 06/13/17 06/13/17 06/13/17 07:00 15:00 23:00 07:00 15:00 23:00 Intake Total 480 ml 724 ml 610 ml 500 ml Output Total 400 ml 1000 ml Balance 480 ml 724 ml 210 ml -500 ml Intake Oral 480 ml 360 ml 400 ml IV Total 724 ml 250 ml 100 ml Output Urine Total 400 ml 900 ml Drainage Total 100 ml # Voids 6 # Bowel Movements 0 Result Diagram: 06/13/17 0632 06/13/17 0632 Objective Remarks GENERAL: WN, WD elderly female sitting up in bed eating. SKIN: Warm and dry. HEENT: Pupils equal and round. MMM. NECK: Supple no tender LAD or JVD. HEART: RRR no m/r/g. LUNGS: CTAB without wheezes or crackles. ABDOMEN: +BS, slightly distended with mild diffuse tenderness. Midline surgical incision with wound vac in place. EXTREMITIES: No LE edema or calf tenderness. NEURO: Awake and alert. Nonfocal. PSYCH: Appropriate mood and affect. Procedures 1. Diagnostic laparoscopy, lysis of adhesions converted to open with lysis of massive adhesions greater than 1-1/2 hours. 2. Small bowel resection of stenotic mid-jejunum. A/P Problem List: (1) Small bowel obstruction ICD Code: K56.609 - Unspecified intestinal obstruction, unspecified as to partial versus complete obstruction Status: Acute (2) Hypokalemia ICD Code: E87.6 - Hypokalemia Assessment and Plan SBO following lysis of adhesions Surgery converted to open and small bowel resection of stenotic mid-jejunum Tolerating regular diet Wound Vac in place over lower abdomen Appreciate Surgery following Leukocytosis Continues to downtrend Abscess in area of right corona-pelvis on CT Continue IV Levaquin and Flagyl Hypokalemia Repleted again with IV KCl Monitor electrolytes DVT Prophylaxis Lovenox 40 mg SQ Q24 Discharge Planning Patient requesting SNF on discharge Discharge Planning Anticipate d/c over next 1-2 days when cleared by surgery. Case management assisting with d/c needs Jesusita Martino MD Jun 13, 2017 11:17
[2017-06-13 12:00] VITALS: BP 122/60; PULSE 94; RESP 18; TEMP 95.9; O2SAT 97
[2017-06-13 16:00] VITALS: BP 118/67; PULSE 71; RESP 17; TEMP 97.1; O2SAT 93
[2017-06-13] MEDS: ENOXAPARIN SODIUM 40 MG/0.4 ML SYRINGE SQ SCH (18:37)
[2017-06-13 20:00] VITALS: BP 112/56; PULSE 89; RESP 19; TEMP 98.2; O2SAT 93
[2017-06-13] MEDS: LEVOFLOXACIN 250 MG PREMIX INJ 50 ML IV SCH (20:50)
[2017-06-14] VITALS: BP 128/64; PULSE 77; RESP 19; TEMP 99.2; O2SAT 94
[2017-06-14] MEDS: metroNIDAZOLE 500 MG INJ 100 ML IV SCH ×3 (04:02→20:14)
[2017-06-14 08:00] VITALS: BP 146/75; PULSE 71; RESP 18; TEMP 98.1; O2SAT 94
--- NOTE | 2017-06-14 08:02 | HHI.PR ---
Subjective Remarks Pt seen and examined this morning. AFVSS. No acute events overnight. Tolerating PO without nausea or vomiting. Pain well-controlled. Had a small BM yesterday morning but none since. Passing flatus. Looking forward to discharge and feels ready whenever she's cleared by surgery. Objective Vitals Vital Signs Date Time Temp Pulse Resp B/P (MAP) Pulse Ox O2 Delivery O2 Flow Rate FiO2 06/14/17 00:00 99.2 77 19 128/64 (85) 94 06/13/17 20:00 98.2 89 19 112/56 (74) 93 06/13/17 16:00 97.1 71 17 118/67 (84) 93 06/13/17 12:00 95.9 94 18 122/60 (80) 97 I/O 06/13/17 06/13/17 06/13/17 06/14/17 06/14/17 06/14/17 06:59 14:59 22:59 06:59 14:59 22:59 Intake Total 750 ml 640 ml 240 ml Output Total 1000 ml 700 ml 650 ml Balance -250 ml -60 ml -410 ml Intake Oral 400 ml 440 ml 240 ml IV Total 350 ml 200 ml Output Urine Total 900 ml 700 ml 600 ml Drainage Total 100 ml 50 ml # Bowel Movements 1 Result Diagram: 06/13/17 0632 06/13/17 0632 Objective Remarks GENERAL: WN, WD elderly female sitting up in bed eating. SKIN: Warm and dry. HEENT: Pupils equal and round. MMM. NECK: Supple no tender LAD or JVD. HEART: RRR no m/r/g. LUNGS: CTAB without wheezes or crackles. ABDOMEN: +BS, slightly distended with minimal tenderness. Midline surgical incision with wound vac in place. EXTREMITIES: No LE edema or calf tenderness. NEURO: Awake and alert. Nonfocal. PSYCH: Appropriate mood and affect. Procedures 1. Diagnostic laparoscopy, lysis of adhesions converted to open with lysis of massive adhesions greater than 1-1/2 hours. 2. Small bowel resection of stenotic mid-jejunum. A/P Problem List: (1) Small bowel obstruction ICD Code: K56.609 - Unspecified intestinal obstruction, unspecified as to partial versus complete obstruction Status: Acute (2) Hypokalemia ICD Code: E87.6 - Hypokalemia Assessment and Plan 87 year old female admitted for nausea, vomiting, and abdominal pain found to have SBO. SBO following lysis of adhesions General surgery consulted and patient underwent diagnostic laparoscopy converted to open for lysis of massive adhesions followed by small bowel resection of stenotic mid-jejunum on 06/02/17 H&H stable Tolerating regular diet Wound Vac in place over lower abdomen On IV Levaquin and Flagyl per surgery Leukocytosis Continues to downtrend Abscess in area of right corona-pelvis on CT Continue IV Levaquin and Flagyl Hypokalemia Improving Start PO KCL 20 meq daily Monitor electrolytes DVT Prophylaxis Lovenox 40 mg SQ Q24 Discharge Planning Patient requesting SNF on discharge. Case management assisting and [id number] complete Discharge Planning Possible D/C today if cleared by surgery. Jesusita Martino MD Jun 14, 2017 08:02
[2017-06-14] MEDS: BISACODYL 10 MG SUPP RECTAL SCH (09:00)
[2017-06-14 10:00] LABS: AUTOMATED NEUTROPHIL # 8.7 TH/MM3 (1.8-7.7); BASOPHIL # 0.1 TH/MM3 (0-0.2); BASOPHIL % 0.8 % (0.0-2.0); EOSINOPHIL # 0.2 TH/MM3 (0-0.4); EOSINOPHIL % 1.6 % (0.0-4.0); HEMATOCRIT 27.3 % (35.0-46.0); LYMPH % 12.7 % (9.0-44.0); LYMPHOCYTE # 1.5 TH/MM3 (1.0-4.8); MEAN CELL VOLUME 85.4 FL (80.0-100.0); MEAN CORPUSCULAR HGB CONC 32.8 % (32.0-36.0); MEAN PLATELET VOLUME 8.5 FL (7.0-11.0); MONO % 11.9 % (0.0-8.0); MONOCYTE # 1.4 TH/MM3 (0-0.9); PLATELET COUNT 457 TH/MM3 (150-450); RED CELL DISTRIBUTION WIDTH 15.4 % (11.6-17.2); WHITE BLOOD COUNT 11.9 TH/MM3 (4.0-11.0)
[2017-06-14 10:24] LABS: BICARBONATE 25.8 MEQ/L (21.0-32.0); CALCIUM 7.9 MG/DL (8.5-10.1); CREATININE 0.78 MG/DL (0.50-1.00)
[2017-06-14 12:00] VITALS: BP 138/72; PULSE 75; RESP 18; TEMP 96.4; O2SAT 95
[2017-06-14] MEDS: POTASSIUM CHLORIDE 20 MEQ CONTROLLED RELEASE TAB PO SCH (12:21)
--- NOTE | 2017-06-14 12:43 | HHI.PR ---
Subjective Subjective Notes Has been OOB several times today No issues over the weekend YOSSI Barron at bedside Objective Vitals/I&O Vital Signs Date Time Temp Pulse Resp B/P (MAP) Pulse Ox O2 Delivery O2 Flow Rate FiO2 06/14/17 12:00 96.4 75 18 138/72 (94) 95 Labs Laboratory Tests Test 06/14/17 06:18 White Blood Count 11.9 Red Blood Count 3.20 Hemoglobin 9.0 Hematocrit 27.3 Mean Corpuscular Volume 85.4 Mean Corpuscular Hemoglobin 28.0 Mean Corpuscular Hemoglobin Concent 32.8 Red Cell Distribution Width 15.4 Platelet Count 457 Mean Platelet Volume 8.5 Neutrophils (%) (Auto) 73.0 Lymphocytes (%) (Auto) 12.7 Monocytes (%) (Auto) 11.9 Eosinophils (%) (Auto) 1.6 Basophils (%) (Auto) 0.8 Neutrophils # (Auto) 8.7 Lymphocytes # (Auto) 1.5 Monocytes # (Auto) 1.4 Eosinophils # (Auto) 0.2 Basophils # (Auto) 0.1 CBC Comment DIFF FINAL Differential Comment Blood Urea Nitrogen 15 Creatinine 0.78 Random Glucose 98 Calcium Level 7.9 Sodium Level 142 Potassium Level 3.4 Chloride Level 108 Carbon Dioxide Level 25.8 Anion Gap 8 Estimat Glomerular Filtration Rate 70 Date/Time Source Procedure Growth Status 06/08/17 15:00 Abscess Abdomen Gram Stain - Final Complete 06/08/17 15:00 Wound Culture - Final Group D Enterococcus Complete Radiology Last Impressions Abdomen/Pelvis CT 06/08/17 0000 Signed Impressions: Service Date/Time: Thursday, June 08, 2017 13:10 - CONCLUSION: 1. 7.3 x 3.1 cm abscess within the left hemipelvis. This fluid collection would be very difficult to drain percutaneously secondary to the superior gluteal artery location. We could entertain a transrectal route for abscess drainage catheter placement if clinically warranted. I spoke with Dr.Dr Arellano. 2. Ileus type pattern. 3. Tiny bilateral pleural effusions with associated passive atelectasis. 4. Fluid and air tracking along the anterior abdominal wall wound. Presumably this is communicating with the overlying skin surface. It does not have the typical appearance of an abscess. 5. Pneumoperitoneum consistent with the postoperative state. Trey Davis Jr., MD Chest X-Ray 06/07/17 0000 Signed Impressions: Service Date/Time: Wednesday, June 07, 2017 16:16 - CONCLUSION: 1. Small left-sided pleural effusion. 2. Possible small 1 cm nodule laterally in the right perihilar distribution. Lungs are otherwise clear. Kirill Oconnell MD Abdomen X-Ray 06/02/17 0600 Signed Impressions: Service Date/Time: Friday, June 02, 2017 05:25 - CONCLUSION: There is a single of dilated segment of small bowel in the left lower quadrant. However, there is less dilatation compared to yesterday's CT examination. Consider continued followup to resolution. Carlos Bassett MD Small Bowel X-Ray 06/02/17 0000 Signed Impressions: Service Date/Time: Friday, June 02, 2017 10:22 - CONCLUSION: Small bowel obstruction mid to distal small bowel left of midline. Terry Ladd MD FACR Cardiovascular: Regular Lungs: Clear Abdomen: Other (wound vac in place with good seal ) Extremities: No edema A/P Problem List: (1) Wound infection after surgery ICD Codes: T81.4XXA - Infection following a procedure, initial encounter Status: Acute (2) Pelvic abscess in female ICD Codes: N73.9 - Female pelvic inflammatory disease, unspecified Status: Resolved (3) S/P small bowel resection ICD Codes: Z90.49 - Acquired absence of other specified parts of digestive tract Status: Acute (4) Status post exploratory laparotomy ICD Codes: Z98.890 - Other specified postprocedural states Status: Acute (5) Potassium serum decreased ICD Codes: E87.6 - Hypokalemia Status: Acute Assessment and Plan 87 year old female with SBO secondary to massive adhesions; s/p dx lap converted to ex lap; resection of mid jejunum -Continue Wound Vac--- plan to change tomorrow at bedside -Regular soft diet--- encouraged smaller more frequent meals -OOB and mobilize -Pain control -Continue IV antibiotics -Replace K as needed -CM following for rehab placement Attending Statement The exam, history, and the medical decision-making described in the above note were completed with the assistance of the mid-level provider. I reviewed and agree with the findings presented. I attest that I had a [id number] encounter with the patient on the same day, and personally performed and documented my assessment and findings in the medical record. abdominal exam: potop tenderness, incison c/d/i wound VAC pain controlled, needs VAC care at rehab Problem Qualifiers (1) Wound infection after surgery: Qualified Codes: T81.4XXD - Infection following a procedure, subsequent encounter Sydnie Kumar/First Vaughn LEON Jun 14, 2017 12:43 Rajan Jenkins MD Jun 15, 2017 11:00
[2017-06-14 16:00] VITALS: BP 150/65; PULSE 77; RESP 18; TEMP 97.2; O2SAT 94
[2017-06-14] MEDS: ENOXAPARIN SODIUM 40 MG/0.4 ML SYRINGE SQ SCH (18:01)
[2017-06-14 20:00] VITALS: BP 158/81; PULSE 72; RESP 18; TEMP 98.5; O2SAT 95
[2017-06-14] MEDS: LEVOFLOXACIN 250 MG PREMIX INJ 50 ML IV SCH (20:14)
[2017-06-15] VITALS: BP 162/85; PULSE 82; RESP 18; TEMP 98.8; O2SAT 96
[2017-06-15] MEDS: metroNIDAZOLE 500 MG INJ 100 ML IV SCH ×2 (04:50→13:07)
[2017-06-15 08:00] VITALS: BP 158/88; PULSE 76; RESP 18; TEMP 97.5; O2SAT 94
[2017-06-15 08:16] LABS: AUTOMATED NEUTROPHIL # 8.5 TH/MM3 (1.8-7.7); BASOPHIL # 0.1 TH/MM3 (0-0.2); BASOPHIL % 1.1 % (0.0-2.0); EOSINOPHIL # 0.2 TH/MM3 (0-0.4); EOSINOPHIL % 1.5 % (0.0-4.0); HEMOGLOBIN 9.4 GM/DL (11.6-15.3); LYMPHOCYTE # 1.4 TH/MM3 (1.0-4.8); MEAN CELL VOLUME 86.5 FL (80.0-100.0); MEAN CORPUSCULAR HEMOGLOBIN 29.1 PG (27.0-34.0); MEAN CORPUSCULAR HGB CONC 33.6 % (32.0-36.0); MEAN PLATELET VOLUME 8.6 FL (7.0-11.0); MONOCYTE # 1.4 TH/MM3 (0-0.9); NEUT % 73.4 % (16.0-70.0); PLATELET COUNT 468 TH/MM3 (150-450); RED BLOOD COUNT 3.24 MIL/MM3 (4.00-5.30); RED CELL DISTRIBUTION WIDTH 15.6 % (11.6-17.2); WHITE BLOOD COUNT 11.6 TH/MM3 (4.0-11.0)
[2017-06-15] MEDS ORDERED: amLODIPine BESYLATE 5 MG TAB PO ONE (08:30)
[2017-06-15 08:45] LABS: BICARBONATE 27.5 MEQ/L (21.0-32.0); CALCIUM 7.8 MG/DL (8.5-10.1); CREATININE 0.79 MG/DL (0.50-1.00)
--- NOTE | 2017-06-15 08:46 | HHI.PR ---
Subjective Remarks Patient states abdominal pain is controlled - 1/10 in intensity. Denies fevers or chills. Poor appetite but states that she does not like food that much. BP noted to be elevated in the 150's consistently. states has been urinating frequently. Objective Vitals Vital Signs Date Time Temp Pulse Resp B/P (MAP) Pulse Ox O2 Delivery O2 Flow Rate FiO2 06/15/17 08:00 97.5 76 18 158/88 (111) 94 06/15/17 00:00 98.8 82 18 162/85 (110) 96 06/14/17 20:00 98.5 72 18 158/81 (106) 95 06/14/17 16:00 97.2 77 18 150/65 (93) 94 06/14/17 12:00 96.4 75 18 138/72 (94) 95 I/O 06/14/17 06/14/17 06/14/17 06/15/17 06/15/17 06/15/17 07:00 15:00 23:00 07:00 15:00 23:00 Intake Total 240 ml 920 ml 150 ml Output Total 650 ml 850 ml 2850 ml Balance -410 ml 70 ml -2700 ml Intake Oral 240 ml 820 ml IV Total 100 ml 150 ml Output Urine Total 600 ml 850 ml 2800 ml Drainage Total 50 ml 50 ml # Bowel Movements 1 1 1 Result Diagram: 06/15/17 0640 06/14/17 0618 Imaging Last Impressions Abdomen/Pelvis CT 06/08/17 0000 Signed Impressions: Service Date/Time: Thursday, June 08, 2017 13:10 - CONCLUSION: 1. 7.3 x 3.1 cm abscess within the left hemipelvis. This fluid collection would be very difficult to drain percutaneously secondary to the superior gluteal artery location. We could entertain a transrectal route for abscess drainage catheter placement if clinically warranted. I spoke with Dr.Dr Arellano. 2. Ileus type pattern. 3. Tiny bilateral pleural effusions with associated passive atelectasis. 4. Fluid and air tracking along the anterior abdominal wall wound. Presumably this is communicating with the overlying skin surface. It does not have the typical appearance of an abscess. 5. Pneumoperitoneum consistent with the postoperative state. Trey Davis Jr., MD Chest X-Ray 06/07/17 0000 Signed Impressions: Service Date/Time: Wednesday, June 07, 2017 16:16 - CONCLUSION: 1. Small left-sided pleural effusion. 2. Possible small 1 cm nodule laterally in the right perihilar distribution. Lungs are otherwise clear. Kirill Oconnell MD Abdomen X-Ray 06/02/17 0600 Signed Impressions: Service Date/Time: Friday, June 02, 2017 05:25 - CONCLUSION: There is a single of dilated segment of small bowel in the left lower quadrant. However, there is less dilatation compared to yesterday's CT examination. Consider continued followup to resolution. Carlos Bassett MD Small Bowel X-Ray 06/02/17 0000 Signed Impressions: Service Date/Time: Friday, June 02, 2017 10:22 - CONCLUSION: Small bowel obstruction mid to distal small bowel left of midline. Terry Ladd MD FACR Objective Remarks GENERAL: WN, WD elderly female sitting up in chair. SKIN: Warm and dry. HEENT: Pupils equal and round. MMM. NECK: Supple no tender LAD or JVD. HEART: RRR no m/r/g. LUNGS: CTAB without wheezes or crackles. ABDOMEN: +BS, slightly distended with minimal tenderness. Midline surgical incision with wound vac in place. EXTREMITIES: No LE edema or calf tenderness. NEURO: Awake and alert. Nonfocal. PSYCH: Appropriate mood and affect. Procedures 1. Diagnostic laparoscopy, lysis of adhesions converted to open with lysis of massive adhesions greater than 1-1/2 hours. 2. Small bowel resection of stenotic mid-jejunum. Medications and IVs Current Medications Medications (Trade) Dose Ordered Sig/Mike Route Start Time Stop Time Status Last Admin (NS Flush) 2 ml UNSCH PRN IV FLUSH 06/01/17 10:00 06/04/17 08:25 (Chloraseptic Stephen) 1 lozenge UNSCH PRN BUCCAL 06/02/17 09:30 (Zofran Inj) 4 mg Q4H PRN IV PUSH 06/02/17 23:00 06/10/17 13:16 (Dulcolax Supp) 10 mg DAILY RECTAL 06/04/17 09:00 06/13/17 09:36 (Lovenox Inj) 40 mg Q24H SQ 06/04/17 19:00 06/14/17 18:01 (Catapres) 0.1 mg Q6H PRN PO 06/05/17 07:45 06/13/17 09:36 (Percocet 5-325 Mg) 1 tab Q4H PRN PO 06/05/17 12:30 06/12/17 22:04 (Morphine Inj) 2 mg Q3H PRN IV PUSH 06/08/17 09:45 06/09/17 13:24 Metronidazole 100 ml @ 100 mls/hr Q8H IV 06/08/17 20:00 06/15/17 04:50 Levofloxacin/ Dextrose 50 ml @ 100 mls/hr Q24H IV 06/13/17 20:00 06/14/17 20:14 (KCl) 20 meq DAILY PO 06/14/17 11:45 06/14/17 12:21 Urinary Catheter: No Vascular Central Line Catheter: No A/P Problem List: (1) Hypokalemia ICD Code: E87.6 - Hypokalemia Status: Acute (2) Pelvic abscess in female ICD Code: N73.9 - Female pelvic inflammatory disease, unspecified Status: Resolved (3) S/P small bowel resection ICD Code: Z90.49 - Acquired absence of other specified parts of digestive tract Status: Acute (4) Status post exploratory laparotomy ICD Code: Z98.890 - Other specified postprocedural states Status: Acute (5) Small bowel obstruction ICD Code: K56.609 - Unspecified intestinal obstruction, unspecified as to partial versus complete obstruction Status: Resolved (6) Wound infection after surgery ICD Code: T81.4XXA - Infection following a procedure, initial encounter Status: Acute Assessment and Plan 87 year old female admitted for nausea, vomiting, and abdominal pain found to have SBO. SBO following lysis of adhesions General surgery consulted and patient underwent diagnostic laparoscopy converted to open for lysis of massive adhesions followed by small bowel resection of stenotic mid-jejunum on 06/02/17 H&H stable Tolerating regular diet Wound Vac in place over lower abdomen On IV Levaquin and Flagyl per surgery 06/15 Discussed case with Sydnie HAMILTON from General surgery. She will remove wound vac and take a look to the wound today. If wound looks ok then will probably clear the patient to be discharged to SNF. Leukocytosis Continues to downtrend Abscess in area of right corona-pelvis on CT Continue IV Levaquin and Flagyl Hypokalemia Improving Continue PO KCL 20 meq daily Monitor electrolytes 06/15 BMP pending. Will replace potassium as needed. Pelvic abscess Repeat CT abdomen and pelvis obtained on June 08, 2017 showed pH 7.33.1 cm abscess within the left hemipelvis. Patient underwent removal of philip and drainage at bedside by general surgery. Patient is afebrile and abdominal pain is controlled. Continue IV antibiotics for now. Hypertension Blood pressure elevated consistently in the 150 systolic range up to 160 systolic. Start amlodipine 2.5 mg p.o. daily. Continue to monitor vital signs. DVT Prophylaxis Lovenox 40 mg SQ Q24 Discharge Planning Discharge pending surgery clearance and improvement of blood pressure. Problem Qualifiers (1) Wound infection after surgery: Qualified Codes: T81.4XXD - Infection following a procedure, subsequent encounter Otto Sommers MD Jun 15, 2017 08:46
[2017-06-15] MEDS ORDERED: amLODIPine BESYLATE 5 MG TAB PO SCH (09:00)
[2017-06-15] MEDS: BISACODYL 10 MG SUPP RECTAL SCH (09:00)
[2017-06-15] MEDS: POTASSIUM CHLORIDE 20 MEQ CONTROLLED RELEASE TAB PO SCH (09:28)
[2017-06-15 12:00] VITALS: BP 155/71; PULSE 83; RESP 18; TEMP 99.4; O2SAT 95
[2017-06-15] MEDS ORDERED: METR-1 PO (13:19)
[2017-06-15] MEDS ORDERED: LEVA500T33 PO (13:19)
--- NOTE | 2017-06-15 14:36 | HHI.PR ---
Subjective Subjective Notes Resting in bed Happy to get Wound Vac off No complaints; eager to get to rehab Objective Vitals/I&O Vital Signs Date Time Temp Pulse Resp B/P (MAP) Pulse Ox O2 Delivery O2 Flow Rate FiO2 06/15/17 12:00 99.4 83 18 155/71 (99) 95 Labs Laboratory Tests Test 06/15/17 06:40 White Blood Count 11.6 Red Blood Count 3.24 Hemoglobin 9.4 Hematocrit 28.0 Mean Corpuscular Volume 86.5 Mean Corpuscular Hemoglobin 29.1 Mean Corpuscular Hemoglobin Concent 33.6 Red Cell Distribution Width 15.6 Platelet Count 468 Mean Platelet Volume 8.6 Neutrophils (%) (Auto) 73.4 Lymphocytes (%) (Auto) 12.0 Monocytes (%) (Auto) 12.0 Eosinophils (%) (Auto) 1.5 Basophils (%) (Auto) 1.1 Neutrophils # (Auto) 8.5 Lymphocytes # (Auto) 1.4 Monocytes # (Auto) 1.4 Eosinophils # (Auto) 0.2 Basophils # (Auto) 0.1 CBC Comment DIFF FINAL Differential Comment Blood Urea Nitrogen 12 Creatinine 0.79 Random Glucose 106 Calcium Level 7.8 Sodium Level 143 Potassium Level 3.9 Chloride Level 109 Carbon Dioxide Level 27.5 Anion Gap 7 Estimat Glomerular Filtration Rate 69 Date/Time Source Procedure Growth Status 06/08/17 15:00 Abscess Abdomen Gram Stain - Final Complete 06/08/17 15:00 Wound Culture - Final Group D Enterococcus Complete Radiology Last Impressions Abdomen/Pelvis CT 06/08/17 0000 Signed Impressions: Service Date/Time: Thursday, June 08, 2017 13:10 - CONCLUSION: 1. 7.3 x 3.1 cm abscess within the left hemipelvis. This fluid collection would be very difficult to drain percutaneously secondary to the superior gluteal artery location. We could entertain a transrectal route for abscess drainage catheter placement if clinically warranted. I spoke with Dr.Dr Arellano. 2. Ileus type pattern. 3. Tiny bilateral pleural effusions with associated passive atelectasis. 4. Fluid and air tracking along the anterior abdominal wall wound. Presumably this is communicating with the overlying skin surface. It does not have the typical appearance of an abscess. 5. Pneumoperitoneum consistent with the postoperative state. Trey Davis Jr., MD Chest X-Ray 06/07/17 0000 Signed Impressions: Service Date/Time: Wednesday, June 07, 2017 16:16 - CONCLUSION: 1. Small left-sided pleural effusion. 2. Possible small 1 cm nodule laterally in the right perihilar distribution. Lungs are otherwise clear. Kirill Oconnell MD Abdomen X-Ray 06/02/17 0600 Signed Impressions: Service Date/Time: Friday, June 02, 2017 05:25 - CONCLUSION: There is a single of dilated segment of small bowel in the left lower quadrant. However, there is less dilatation compared to yesterday's CT examination. Consider continued followup to resolution. Carlos Bassett MD Small Bowel X-Ray 06/02/17 0000 Signed Impressions: Service Date/Time: Friday, June 02, 2017 10:22 - CONCLUSION: Small bowel obstruction mid to distal small bowel left of midline. Terry Ladd MD FACR Cardiovascular: Regular Lungs: Clear Abdomen: Other (Wound Vac removed; wet to dry dressing applied) Extremities: No edema A/P Problem List: (1) Wound infection after surgery ICD Codes: T81.4XXA - Infection following a procedure, initial encounter Status: Acute (2) Pelvic abscess in female ICD Codes: N73.9 - Female pelvic inflammatory disease, unspecified Status: Resolved (3) S/P small bowel resection ICD Codes: Z90.49 - Acquired absence of other specified parts of digestive tract Status: Acute (4) Status post exploratory laparotomy ICD Codes: Z98.890 - Other specified postprocedural states Status: Acute (5) Potassium serum decreased ICD Codes: E87.6 - Hypokalemia Status: Acute Assessment and Plan 87 year old female with SBO secondary to massive adhesions; s/p dx lap converted to ex lap; resection of mid jejunum -Wound Vac removed; transition to wet to dry dressings -Regular soft diet--- encouraged smaller more frequent meals -OOB and mobilize -Pain control -Levaquin/Flagyl -Replace K as needed -CM following for rehab placement- Problem Qualifiers (1) Wound infection after surgery: Qualified Codes: T81.4XXD - Infection following a procedure, subsequent encounter Sydnie Kumar/First Vaughn LEON Jun 15, 2017 14:36
[2017-06-15] MEDS ORDERED: AMLO5 PO (15:07)
--- NOTE | 2017-06-15 15:08 | HHI.DCPOC ---
Discharge Care Plan Diagnosis: (1) Pelvic abscess in female (2) Small bowel obstruction (3) Hypokalemia (4) Wound infection after surgery (5) Intra-abdominal adhesions (6) Vomiting (7) S/P small bowel resection (8) Status post exploratory laparotomy Goals to Promote Your Health * To prevent worsening of your condition and complications * To maintain your health at the optimal level Directions to Meet Your Goals Take your medications as prescribed Follow your dietary instruction Follow activity as directed Keep your appointments as scheduled Take your immunizations and boosters as scheduled If your symptoms worsen call your PCP, if no PCP go to Urgent Care Center or Emergency Room Smoking is Dangerous to Your Health. Avoid second hand smoke Call the 24-hour hour crisis hotline for domestic abuse at Otto Sommers MD Jun 15, 2017 15:08
--- NOTE | 2017-06-15 15:12 | HHI.DS ---
Discharge Summary Admission Date Jun 01, 2017 at 11:12 Discharge Date: Jun 15, 2017 Admitting Diagnosis Small bowel obstruction (1) Hypokalemia ICD Code: E87.6 - Hypokalemia Diagnosis: Principal Status: Resolved (2) Pelvic abscess in female ICD Code: N73.9 - Female pelvic inflammatory disease, unspecified Diagnosis: Principal Status: Resolved (3) S/P small bowel resection ICD Code: Z90.49 - Acquired absence of other specified parts of digestive tract Diagnosis: Principal Status: Acute (4) Status post exploratory laparotomy ICD Code: Z98.890 - Other specified postprocedural states Diagnosis: Principal Status: Acute (5) Small bowel obstruction ICD Code: K56.609 - Unspecified intestinal obstruction, unspecified as to partial versus complete obstruction Status: Resolved (6) Wound infection after surgery ICD Code: T81.4XXA - Infection following a procedure, initial encounter Diagnosis: Principal Status: Acute Procedures 1. Diagnostic laparoscopy, lysis of adhesions converted to open with lysis of massive adhesions greater than 1-1/2 hours. 2. Small bowel resection of stenotic mid-jejunum. Brief History - From Admission patient is a 87 y/o female with no significant past medical history presented to ER with abdominal pain. she says that the pain started three days ago which gradually got worse. pain was generalized and colicky in nature.pain was associated with nausea and several non-bloody emesis. she hasn't had any bowel movements since Wednesday.she denies any fever or chills. CBC/BMP: 06/15/17 0640 06/15/17 0640 Significant Findings Laboratory Tests Test 06/13/17 06:32 06/14/17 06:18 06/15/17 06:40 White Blood Count 14.4 TH/MM3 (4.0-11.0) 11.9 TH/MM3 (4.0-11.0) 11.6 TH/MM3 (4.0-11.0) Red Blood Count 3.25 MIL/MM3 (4.00-5.30) 3.20 MIL/MM3 (4.00-5.30) 3.24 MIL/MM3 (4.00-5.30) Hemoglobin 9.3 GM/DL (11.6-15.3) 9.0 GM/DL (11.6-15.3) 9.4 GM/DL (11.6-15.3) Hematocrit 28.0 % (35.0-46.0) 27.3 % (35.0-46.0) 28.0 % (35.0-46.0) Neutrophils (%) (Auto) 81.6 % (16.0-70.0) 73.0 % (16.0-70.0) 73.4 % (16.0-70.0) Lymphocytes (%) (Auto) 8.3 % (9.0-44.0) Monocytes (%) (Auto) 8.5 % (0.0-8.0) 11.9 % (0.0-8.0) 12.0 % (0.0-8.0) Neutrophils # (Auto) 11.7 TH/MM3 (1.8-7.7) 8.7 TH/MM3 (1.8-7.7) 8.5 TH/MM3 (1.8-7.7) Monocytes # (Auto) 1.2 TH/MM3 (0-0.9) 1.4 TH/MM3 (0-0.9) 1.4 TH/MM3 (0-0.9) Calcium Level 7.6 MG/DL (8.5-10.1) 7.9 MG/DL (8.5-10.1) 7.8 MG/DL (8.5-10.1) Potassium Level 3.2 MEQ/L (3.5-5.1) 3.4 MEQ/L (3.5-5.1) Estimat Glomerular Filtration Rate 65 ML/MIN (>89) 70 ML/MIN (>89) 69 ML/MIN (>89) Platelet Count 457 TH/MM3 (150-450) 468 TH/MM3 (150-450) Chloride Level 108 MEQ/L (98-107) 109 MEQ/L (98-107) Imaging Last Impressions Abdomen/Pelvis CT 06/08/17 0000 Signed Impressions: Service Date/Time: Thursday, June 08, 2017 13:10 - CONCLUSION: 1. 7.3 x 3.1 cm abscess within the left hemipelvis. This fluid collection would be very difficult to drain percutaneously secondary to the superior gluteal artery location. We could entertain a transrectal route for abscess drainage catheter placement if clinically warranted. I spoke with Dr.Dr Arellano. 2. Ileus type pattern. 3. Tiny bilateral pleural effusions with associated passive atelectasis. 4. Fluid and air tracking along the anterior abdominal wall wound. Presumably this is communicating with the overlying skin surface. It does not have the typical appearance of an abscess. 5. Pneumoperitoneum consistent with the postoperative state. Trey Davis Jr., MD Chest X-Ray 06/07/17 0000 Signed Impressions: Service Date/Time: Wednesday, June 07, 2017 16:16 - CONCLUSION: 1. Small left-sided pleural effusion. 2. Possible small 1 cm nodule laterally in the right perihilar distribution. Lungs are otherwise clear. Kirill Oconnell MD Abdomen X-Ray 06/02/17 0600 Signed Impressions: Service Date/Time: Friday, June 02, 2017 05:25 - CONCLUSION: There is a single of dilated segment of small bowel in the left lower quadrant. However, there is less dilatation compared to yesterday's CT examination. Consider continued followup to resolution. Carlos Bassett MD Small Bowel X-Ray 06/02/17 0000 Signed Impressions: Service Date/Time: Friday, June 02, 2017 10:22 - CONCLUSION: Small bowel obstruction mid to distal small bowel left of midline. Terry Ladd MD FACR PE at Discharge GENERAL: WN, WD elderly female sitting up in chair. SKIN: Warm and dry. HEENT: Pupils equal and round. MMM. NECK: Supple no tender LAD or JVD. HEART: RRR no m/r/g. LUNGS: CTAB without wheezes or crackles. ABDOMEN: +BS, slightly distended with minimal tenderness. Midline surgical incision with wound vac in place. EXTREMITIES: No LE edema or calf tenderness. NEURO: Awake and alert. Nonfocal. PSYCH: Appropriate mood and affect. Pt update on day of discharge Hypokalemia resolved. The case was discussed with caffeine completely from general surgery who states patient may be discharged to rehab and follow-up with general surgery as an outpatient. The patient will be discharged on oral antibiotics. Pt Condition on Discharge: Stable Discharge Disposition: Discharge to SNF Discharge Time: > 30 minutes Discharge Instructions DIET: Follow Instructions for: As Tolerated, No Restrictions Activities you can perform: See Additionl Instruction Other Activity Instructions: As per PT instructions. OOB with assistance. Follow up Referrals: SNF/[facility]DR[facility]/HH with [facility] - 06/21/17 with Navarro Arellano MD Appt set for Jun 21 at 4:20PM New Medications: Levofloxacin (Levaquin) 500 Mg Tablet 500 MG PO DAILY for Infection for 7 Days, #7 TAB 0 Refills Metronidazole (Flagyl) 500 Mg Tab 500 MG PO TID for Infection for 7 Days, TAB 0 Refills Amlodipine (Norvasc) 5 Mg Tab 2.5 MG PO DAILY for Blood Pressure Management, #30 TAB Otto Sommers MD Jun 15, 2017 15:12
[2017-06-15 16:00] VITALS: BP 153/81; PULSE 88; RESP 18; TEMP 98.6; O2SAT 93
== END 2017-06-15 17:15 | DRG 330 ==
LOC: NEPE 09:30 → NEDA 11:12 → N04A 15:15 → N03B 06-02 22:33 → N07A 06-04 16:39
PROVIDERS: ADMIT Hospitalist; ATTEND Hospitalist
PROC: 0DN84ZZ Release Small Intestine, Percutaneous Endoscopic Approach (ICD-10-PCS; 2017-06-02)
PROC: 0DN80ZZ Release Small Intestine, Open Approach (ICD-10-PCS; 2017-06-02)
PROC: 0DBA0ZZ Excision of Jejunum, Open Approach (ICD-10-PCS; principal; 2017-06-02 20:51)
DX: K56.50 Intestinal adhesions [bands], unspecified as to partial versus complete obstruction (principal); N17.9 Acute kidney failure, unspecified; T81.4XXA Infection following a procedure, initial encounter; E86.0 Dehydration; E87.6 Hypokalemia; Z80.3 Family history of malignant neoplasm of breast; Z66 Do not resuscitate; Z53.31 Laparoscopic surgical procedure converted to open procedure; I10 Essential (primary) hypertension; Y83.8 Other surgical procedures as the cause of abnormal reaction of the patient, or of later complication, without mention of misadventure at the time of the procedure; Y92.239 Unspecified place in hospital as the place of occurrence of the external cause
CPT/HCPCS: 71045; 74018; 74176; 74177; 74250; 76937; 80048; 80053; 81001; 83690; 83735; 84155; 85007; 85025; 85027; 85610; 87070; 87205; 87641; 88307; 93005; 94150; 94618; 96361; 96374; C1765; C9113; J0131; J0330; J0690; J1100; J1170; J1650; J1956; J2270; J2370; J2405; J3010; J3370; J3480; J7030; J7120; P9045; Q9963; Q9967